=== PATIENT | female | born 1940 | race Caucasian/White ===

== ENCOUNTER → 2016-07-06 | Outpatient (CLI) | payer MEDICARE, BC ==
--- NOTE | 2016-07-07 08:17 | MM ---
Reason for exam: screening (asymptomatic). Last mammogram was performed 1 year and 2 months ago. History: Patient is postmenopausal. Family history of breast cancer in maternal aunt at age 50. Benign excisional biopsy of the left breast. Took hormonal contraceptives for 5 years. Physical Findings: A clinical breast exam by your physician is recommended on an annual basis and results should be correlated with mammographic findings. MG Screening Mammo w CAD Bilateral CC and MLO view(s) were taken. Prior study comparison: May 07, 2015, bilateral MG screening mammo w CAD. April 16, 2014, bilateral MG screening mammo w CAD. There are scattered fibroglandular densities. There is chronic nodularity bilaterally. No significant changes when compared with prior studies. ASSESSMENT: Benign, BI-RAD 2 RECOMMENDATION: Routine screening mammogram of both breasts in 1 year.
== END | disposition home or self-care (01) ==
LOC: RADMAMWWP 11:37
PROVIDERS: ATTEND Internal Medicine Geriatric Medicine
DX: Z12.31 Encounter for screening mammogram for malignant neoplasm of breast (principal)

== ENCOUNTER 2016-08-04 08:18 | Day surgery (SDC) | payer MEDICARE, BC ==
[2016-07-30 15:14] VITALS: BMI 30.9
[~2016-08-04 08:18] MED LIST: LACTATED RINGERS 1,000 ML IV SCH
[2016-08-04 09:02] VITALS: TEMP 97.9
[2016-08-04] MEDS ORDERED: LIDOCAINE 1% 20 ML VIAL (10MG/ML) FOR IV START INTRADERMA ONE (09:02)
[2016-08-04] MEDS ORDERED: LIDOCAINE 1% INJ 10MG/ML (20 ML MDV) ONE (09:03)
[2016-08-04] MEDS ORDERED: PROPOFOL 10 MG/ML 20 ML VIAL IV ONE (09:03)
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
--- NOTE | 2016-08-04 09:33 | P.PCN ---
Date of Procedure: 08/04/16 Procedure(s) Performed: PREOPERATIVE DIAGNOSIS: Anemia, GERD POSTOPERATIVE DIAGNOSIS: Duodenitis, mild gastritis, hiatal hernia, mild diverticulosis PROCEDURE: 1. EGD with biopsy 2. Colonoscopy ANESTHESIA: MAC SURGEON: Lonnie Quach M.D. SPECIMENS: Duodenum, antral ENDOSCOPIC PROCEDURE: The patient was on the endoscopy table in the left decubitus position. The Olympus gastroscope was inserted into the oropharynx and passed under direct visualization to the region of the third portion of the duodenum. From that point the scope was slowly withdrawn inspecting all surfaces carefully. There was mild duodenitis present. No evidence of recent or active bleeding. The pylorus was widely patent. The stomach was carefully inspected. There was minimal gastritis present. A biopsy of the antrum took place to rule out H. pylori. Retroflexion revealed a small to moderate sized hiatal hernia. The GE junction was present 2 cm above the diaphragmatic hiatus. There was no inflammatory changes within the hiatal hernia. The esophagus was then carefully examined. There were no neoplastic inflammatory or polypoid lesions throughout the visualized esophagus. The patient was kept on the endoscopy table in the left decubitus position. The Olympus colonoscope was inserted into the anus and passed under direct visualization to the base of the cecum. The appendiceal orifice was visualized. From that point the scope was slowly withdrawn inspecting all surfaces carefully. There were no neoplastic inflammatory or polypoid lesions throughout the cecum, ascending, transverse, descending, sigmoid and rectum. There was mild diverticulosis noted. Digital rectal examination was normal. The patient was taken to the recovery room in stable condition per anesthesia guidelines. RECOMMENDATIONS: Increase fiber. Consider hematology workup
[2016-08-04 09:41] VITALS: RESP 16
[2016-08-04 09:52] VITALS: BP 125/55; PULSE 69
== END 2016-08-04 10:18 | disposition home or self-care (01) ==
LOC: ORWHC2ENDO 08:18
PROVIDERS: ATTEND Surgery
DX: K21.9 Gastro-esophageal reflux disease without esophagitis (principal); K29.50 Unspecified chronic gastritis without bleeding; K29.80 Duodenitis without bleeding; K57.30 Diverticulosis of large intestine without perforation or abscess without bleeding; D64.9 Anemia, unspecified; G25.81 Restless legs syndrome; I10 Essential (primary) hypertension; K44.9 Diaphragmatic hernia without obstruction or gangrene; F32.9 Major depressive disorder, single episode, unspecified; Z87.891 Personal history of nicotine dependence; Z79.899 Other long term (current) drug therapy
CPT/HCPCS: 88305; 88342; 43239; J2001; J2704; G0121

== ENCOUNTER → 2016-11-03 | Day surgery (SDC) | payer MEDICARE, BC ==
[2016-10-29 10:13] VITALS: BMI 30.4
[~2016-11-03] MED LIST changes: -LACTATED RINGERS 1,000 ML IV SCH; +SIMETHICONE 40 MG/0.6 ML DROPS 2,000 MG/30 ML BOTTLE PO ONE
== END ==
LOC: ORWHC2ENDO 06:50
PROVIDERS: ATTEND Internal Medicine Gastroenterology
DX: K31.819 Angiodysplasia of stomach and duodenum without bleeding (principal); D50.9 Iron deficiency anemia, unspecified; K29.70 Gastritis, unspecified, without bleeding; K29.80 Duodenitis without bleeding; K57.30 Diverticulosis of large intestine without perforation or abscess without bleeding
CPT/HCPCS: 91110

== ENCOUNTER 2016-11-17 08:09 | Day surgery (SDC) | payer MEDICARE, BC ==
[2016-11-15 15:05] VITALS: BMI 31.3
[~2016-11-17 08:09] MED LIST changes: +LACTATED RINGERS 1,000 ML IV SCH; +LIDOCAINE 1% 20 ML VIAL (10MG/ML) FOR IV START INTRADERMA PRN; -SIMETHICONE 40 MG/0.6 ML DROPS 2,000 MG/30 ML BOTTLE PO ONE
[2016-11-17 08:48] VITALS: TEMP 97.7
[2016-11-17] MEDS ORDERED: PROPOFOL 10 MG/ML 20 ML VIAL IV ONE (09:15)
[2016-11-17] MEDS ORDERED: LIDOCAINE 1% INJ 10MG/ML (20 ML MDV) ONE (09:15)
--- NOTE | 2016-11-17 09:37 | P.PCN ---
Date of Procedure: 11/17/16 Preoperative Diagnosis: Postoperative Diagnosis: Procedure(s) Performed: BRIEF HISTORY: Patient is a 76-year-old, pleasant, white female, scheduled for a upper endoscopy/small bowel enteroscopy as a part of evaluation of iron deficiency anemia. She had an upper endoscopy as well as colonoscopy done by Dr. Henriquez in September 2016 which showed some gastritis and duodenitis and diverticulosis. She subsequently had a small bowel capsule endoscopy done because of persistent iron deficiency anemia. The capsule endoscopy revealed multiple scattered angiectasia noted in the duodenum as well as in the proximal jejunum somewhat with active oozing. She is hence scheduled for a small bowel enteroscopy today.. PROCEDURE PERFORMED: Esophagogastroduodenoscopy/small bowel enteroscopy with argon plasma coagulation. PREOPERATIVE DIAGNOSIS: Persistent iron deficiency anemia. IV sedation per anesthesia. PROCEDURE: After informed consent was obtained, the patient was brought into the endoscopy unit. IV sedation was administered by Anesthesia under continuous monitoring. Initially the Olympus GIF-140 video pediatric colonoscope was inserted into the mouth. Esophagus intubated without any difficulty. It was gradually advanced into the stomach and duodenum and into the proximal jejunal andcarefully examined. there are multiple scattered angiectasia noted in the proximal jejunum as well as the second third and fourth part of the duodenum couple of which with active oozing around which were coagulated using argon plasma coagulation and good hemostasis. The scope at this time was withdrawn to the stomach, adequately insufflated with air, and upon careful examination, mucosa of the antrum, body, cardia and the fundus appeared normal. The scope was then withdrawn into the esophagus. The GE junction was located at 39 cm from the incisors. small hiatal hernia noted. The esophagus appeared normal. There were no erosions or ulcerations seen and the patient tolerated the procedure well. IMPRESSION: 1. Multiple scattered angiectasia in the second third and fourth part of the duodenum as well as in the proximal jejunum, couple of which with active oozing status post argon plasma coagulation with good hemostasis . 2 Small hiatal hernia. RECOMMENDATIONS: The findings of this examination were discussed with the patient as well as a family. she was advised to continue with iron supplements and follow her hemoglobin and hematocrit closely. She'll be seen in the office in 3 months. Implants: Indications for Procedure: Operative Findings: Description of Procedure:
[2016-11-17 09:39] VITALS: RESP 16
[2016-11-17 10:14] VITALS: BP 135/55; PULSE 62
== END 2016-11-17 10:32 | disposition home or self-care (01) ==
LOC: ORWHC2ENDO 08:09
PROVIDERS: ATTEND Internal Medicine Gastroenterology
DX: I99.8 Other disorder of circulatory system (principal); D50.9 Iron deficiency anemia, unspecified; K44.9 Diaphragmatic hernia without obstruction or gangrene; I10 Essential (primary) hypertension; K21.9 Gastro-esophageal reflux disease without esophagitis; Z79.899 Other long term (current) drug therapy
CPT/HCPCS: 43270; J2001; J2704

== ENCOUNTER → 2017-05-02 | Outpatient (CLI) | payer MEDICARE, BC ==
--- NOTE | 2017-05-02 17:32 | CT ---
EXAMINATION TYPE: CT abdomen pelvis wo con DATE OF EXAM: 05/02/2017 COMPARISON: 10/09/2011 INDICATION: No Complaints at time of scan DLP: 644.4 mGycm, Automated exposure control for dose reduction was used. CONTRAST: 0 mL of Omnipaque 350. Study performed with Oral Contrast TECHNIQUE: Axial images were obtained from above the diaphragm to the pubic rami in the axial plane a t 5 mm thick sections. Reconstructed images are reviewed on the computer in the coronal plane. FINDINGS: Limited CT sections are obtained the lung bases. There is some mild increased opacities in the right lung base likely atelectasis. Coronary artery calcification is noted.. CT ABDOMEN: There is a mesenteric fat containing hernia within the mid abdomen. The mesentery is some mild increased density partial entrapment of the mesenteric fat to be considered. The opening is oralia roximately 1.8 cm in size. Series 3 image 35. Liver: Normal Spleen: Normal Pancreas: Normal Adrenal glands: The adrenal glands are normal. Gallbladder: Absent Kidneys: The right kidney is absent. Left kidney appears normal. Some residual renal tissue may be pr esent with a small calcification at the renal bed. No masses cysts or hydronephrosis are evident within the left kidney. Aorta: Vascular calcification is within the aorta. Inferior vena cava: Normal. CT PELVIS: Loops of bowel within the abdomen and pelvis are normal. There are loops of bowel which are incom pletely distended or lack oral contrast limiting their evaluation. Appendix: Not visualized. Urinary bladder: Normal. Genitourinary structures: Uterus is unremarkable. Adnexal regions are clear. Osseous structures: No suspicious lytic or sclerotic lesions. IMPRESSIONS: 1. Severely atrophic or absent right kidney. 2. Mesenteric fat containing anterior abdominal wall hernia with an opening 1.8 cm. This may have so me entrapment.
== END | disposition home or self-care (01) ==
LOC: RADCTMAIN 14:16
PROVIDERS: ATTEND Internal Medicine Hematology & Oncology
DX: K43.9 Ventral hernia without obstruction or gangrene (principal); D50.9 Iron deficiency anemia, unspecified
CPT/HCPCS: 36415; 74176; 82565; 84520

== ENCOUNTER → 2017-08-09 | Outpatient (CLI) | payer MEDICARE, BC ==
--- NOTE | 2017-08-11 07:33 | MM ---
Reason for exam: screening (asymptomatic). Last mammogram was performed 1 year and 1 month ago. History: Patient is postmenopausal. Family history of breast cancer in maternal aunt at age 50. Benign excisional biopsy of the left breast. Took hormonal contraceptives for 5 years. Physical Findings: A clinical breast exam by your physician is recommended on an annual basis and results should be correlated with mammographic findings. MG Screening Mammo w CAD Bilateral CC and MLO view(s) were taken. Prior study comparison: July 06, 2016, bilateral MG screening mammo w CAD. May 07, 2015, bilateral MG screening mammo w CAD. Finding: There are extensive typically benign round, diffuse calcifications in both breasts. No significant changes in finding since July 06, 2016 and May 07, 2015. ASSESSMENT: Benign, BI-RAD 2 RECOMMENDATION: Routine screening mammogram of both breasts in 1 year.
== END | disposition home or self-care (01) ==
LOC: RADMAMWWP 13:04
PROVIDERS: ATTEND Internal Medicine Geriatric Medicine
DX: Z12.31 Encounter for screening mammogram for malignant neoplasm of breast (principal)
CPT/HCPCS: 77067

== ENCOUNTER → 2018-05-09 | Outpatient (CLI) | payer MEDICARE, BC ==
[~2018-05-09] MED LIST changes: -LACTATED RINGERS 1,000 ML IV SCH; -LIDOCAINE 1% 20 ML VIAL (10MG/ML) FOR IV START INTRADERMA PRN; +SODIUM CHLORIDE 0.9% 500 ML 500 ML in EMPTY BAG 1 BAG IV PRN
[2018-05-09 14:21] VITALS: BP 146/67; PULSE 76; RESP 16; TEMP 98
== END | disposition home or self-care (01) ==
LOC: PROCWHC3 10:05
PROVIDERS: ATTEND Internal Medicine Hematology & Oncology
DX: D50.9 Iron deficiency anemia, unspecified (principal)
CPT/HCPCS: 86900; 86901; 86902; 86850; 86920; 36430; P9016

== ENCOUNTER 2018-05-31 08:07 | Day surgery (SDC) | payer MEDICARE, BC ==
[2018-05-26 12:00] VITALS: BMI 27.6
[~2018-05-31 08:07] MED LIST changes: +LACTATED RINGERS 1,000 ML IV SCH; -SODIUM CHLORIDE 0.9% 500 ML 500 ML in EMPTY BAG 1 BAG IV PRN
[2018-05-31 08:39] VITALS: RESP 16; TEMP 98.6
[2018-05-31] MEDS ORDERED: LIDOCAINE 1% 20 ML VIAL (10MG/ML) FOR IV START INTRADERMA ONE (08:39)
[2018-05-31] MEDS ORDERED: PROPOFOL 10 MG/ML 20 ML VIAL IV ONE (08:47)
--- NOTE | 2018-05-31 09:07 | P.PCN ---
Date of Procedure: 05/31/18 Procedure(s) Performed: BRIEF HISTORY: Patient is a 78-year-old, pleasant, white female, scheduled for an upper endoscopy as a part of evaluation of iron deficiency anemia. Her last upper endoscopy was in January 2017 and she was noted to have multiple duodenal angiectasia. Recently has been having recurrent anemia requiring blood transfusion almost once every 2 months. She is hence scheduled for repeat upper endoscopy revealed. PROCEDURE PERFORMED: Esophagogastroduodenoscopy with argon plasma coagulation and Endo Clip placement. PREOPERATIVE DIAGNOSIS: Iron deficiency anemia/history of duodenal angiectasia. IV sedation per anesthesia. PROCEDURE: After informed consent was obtained, the patient was brought into the endoscopy unit. IV sedation was administered by Anesthesia under continuous monitoring. Initially the Olympus GIF-140 video endoscope was inserted into the mouth. Esophagus intubated without any difficulty. It was gradually advanced into the stomach and duodenum and carefully examined. The bulb and the second part of the duodenum had multiple scattered angiectasia all of which were coagulated with argon plasma. One of the angiectasia was large and there was significant oozing identified and hence Endo Clip was placed to achieve good hemostasis The scope at this time was withdrawn to the stomach, adequately insufflated with air, and upon careful examination, mucosa of the antrum, body, cardia and the fundus appeared normal. The scope was then withdrawn into the esophagus. The GE junction was located at 39 cm from the incisors. The esophagus appeared normal. There were no erosions or ulcerations seen and the patient tolerated the procedure well. IMPRESSION: 1. Multiple scattered duodenal angiectasia in all 4 portions of the duodenum status post argon plasma coagulation and Endo Clip placement with good hemostasis. 2. Normal-appearing stomach and esophagus. RECOMMENDATIONS: The findings of this examination were discussed with the patient as well as her family. She was advised to continue with iron supplements and monitor CBC and periodic basis.
[2018-05-31 09:25] VITALS: BP 101/53; PULSE 64
== END 2018-05-31 10:08 | disposition home or self-care (01) ==
LOC: ORWHC2ENDO 08:07
PROVIDERS: ATTEND Internal Medicine Gastroenterology
DX: I99.8 Other disorder of circulatory system (principal); Z79.899 Other long term (current) drug therapy; I10 Essential (primary) hypertension; Z87.891 Personal history of nicotine dependence; N28.9 Disorder of kidney and ureter, unspecified; G25.81 Restless legs syndrome; F39 Unspecified mood [affective] disorder; H91.90 Unspecified hearing loss, unspecified ear; K21.9 Gastro-esophageal reflux disease without esophagitis
CPT/HCPCS: 43255; 43270; J2704

== ENCOUNTER 2018-07-14 16:04 | Emergency (ER) | payer MEDICARE, BC ==
[2018-07-14 16:14] VITALS: RESP 18
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
--- NOTE | 2018-07-14 17:45 | XR ---
PROCEDURE: XR foot complete RT - 3V DATE AND TIME: 07/14/2018 5:19 PM CLINICAL INDICATION: PHH; Pain TECHNIQUE: Department protocol COMPARISON: None FINDINGS: There is marked osteopenia and marked architectural distortion of the head of the fifth met atarsal and distal tibia, long-standing. There is no definite fracture or malalignment. The soft tissues are unremarkable. IMPRESSION: No definite acute radiographic process.
[2018-07-14 19:25] VITALS: BP 111/62; PULSE 72; TEMP 97.6
== END 2018-07-14 19:24 | disposition home or self-care (01) ==
LOC: EC 16:04
DX: M79.671 Pain in right foot (principal); M85.871 Other specified disorders of bone density and structure, right ankle and foot; K21.9 Gastro-esophageal reflux disease without esophagitis; I10 Essential (primary) hypertension; F32.9 Major depressive disorder, single episode, unspecified; Z79.899 Other long term (current) drug therapy; Z87.891 Personal history of nicotine dependence
CPT/HCPCS: 99283

== ENCOUNTER → 2018-09-21 | Outpatient (CLI) | payer MEDICARE, BC ==
--- NOTE | 2018-09-22 13:36 | MM ---
Reason for exam: screening (asymptomatic). Last mammogram was performed 1 year and 1 month ago. History: Patient is postmenopausal. Family history of breast cancer in maternal aunt at age 50. Benign excisional biopsy of the left breast. Took hormonal contraceptives for 5 years. Physical Findings: A clinical breast exam by your physician is recommended on an annual basis and results should be correlated with mammographic findings. MG Screening Mammo w CAD Bilateral CC and MLO view(s) were taken. XCCL view(s) were taken of the left breast. Prior study comparison: August 09, 2017, bilateral MG screening mammo w CAD. July 06, 2016, bilateral MG screening mammo w CAD. The breast tissue is heterogeneously dense. This may lower the sensitivity of mammography. Benign appearing bilateral calcifications. No suspicious abnormality. No significant changes when compared with prior studies. ASSESSMENT: Benign, BI-RAD 2 RECOMMENDATION: Routine screening mammogram of both breasts in 1 year.
== END | disposition home or self-care (01) ==
LOC: RADMAMWWP 13:18
PROVIDERS: ATTEND Internal Medicine Geriatric Medicine
DX: Z12.31 Encounter for screening mammogram for malignant neoplasm of breast (principal)
CPT/HCPCS: 77067

== ENCOUNTER → 2018-11-27 | Outpatient (CLI) | payer MEDICARE, BC ==
--- NOTE | 2018-11-27 14:45 | CT ---
EXAMINATION TYPE: CT lumbar spine wo con DATE OF EXAM: 11/27/2018 COMPARISON: Correlation CT abdomen pelvis 05/02/2017 HISTORY: 78-year-old female Low back and bilat leg pain TECHNIQUE: Contiguous axial scanning of the lumbar spine without IV contrast. Coronal and sagittal re constructions performed. CT DLP: 611 mGycm Automated exposure control for dose reduction was used. FINDINGS: Moderate atherosclerotic calcifications abdominal aorta and iliac arteries. The right kidney is severely atretic. Prominent contour lobulations involving the left kidney with configuration overall unchanged from suggesting multiple cortical defects such as from prior vascular or infectious insults. Vertebral body heights are preserved. Facet arthropathy with grade 1 anterolisthesis at L3-L4. Bulging discs at L2-S1 levels. The largest is at L4-L5 where there is prominent ventral indentation of the thecal sac possibly with mild narrowing of the spinal canal. No high-grade canal compromise identified by CT. On the left, there is mild to moderate neuroforaminal narrowing at L3-L4 and L4-L5 and mild at L2-L3. On the right, there is mild narrowing of the spinal canal at L4-L5 and minimal at L3-L4. IMPRESSION: 1. 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 2. MILD DEGENERATIVE DISC DISEASE WITH DISC BULGING FROM L2 THROUGH S1 LEVELS. THE LARGEST IS AT L4-L 5 AND MAY CONTRIBUTE TO MILD NARROWING OF THE SPINAL CANAL. NO GEORGE CANAL COMPROMISE BY CT. 3. MILD TO MODERATE NEUROFORAMINAL STENOSES OF THE LEFT PARTICULARLY AT L3-L4 AND L4-L5. MINIMAL TO M ILD ON THE RIGHT.
== END | disposition home or self-care (01) ==
LOC: RADCTMAIN 13:01
PROVIDERS: ATTEND Physical Medicine & Rehabilitation
DX: M48.061 Spinal stenosis, lumbar region without neurogenic claudication (principal); M51.16 Intervertebral disc disorders with radiculopathy, lumbar region; M43.16 Spondylolisthesis, lumbar region; M51.86 Other intervertebral disc disorders, lumbar region; M46.96 Unspecified inflammatory spondylopathy, lumbar region
CPT/HCPCS: 72131

== ENCOUNTER 2019-09-20 14:43 | Emergency (ER) | payer MEDICARE, BC ==
[2019-09-20 14:51] VITALS: RESP 18
[2019-09-20 15:32] LABS: HCT 28.3 % (34.0-46.0); HGB 8.7 gm/dL (11.4-16.0); Hypochromasia Marked; MCH 30.2 pg (25.0-35.0); MCHC 30.8 g/dL (31.0-37.0); Mean Platelet Volume 8.2; Platelet Count 361 k/uL (150-450); RBC 2.89 m/uL (3.80-5.40); RDW 15.3 % (11.5-15.5); WBC 15.1 k/uL (3.8-10.6)
[2019-09-20 15:41] LABS: Calcium 9.3 mg/dL (8.4-10.2); Potassium 5.1 mmol/L (3.5-5.1); Total Bilirubin 0.1 mg/dL (0.2-1.3); Total Protein 6.8 g/dL (6.3-8.2)
--- NOTE | 2019-09-20 15:54 | XR ---
KUB HISTORY: Shortness of breath and abdominal pain Frontal KUB submitted on 2 images Lung bases are clear. There is a spinal curvature present. No evident pleural effusion. There are vas cular calcifications present. There are overlying cardiac leads. Air-fluid levels are present without bowel distention. IMPRESSION: There may be underlying enteritis or ileus. Additional findings above. Follow-up as indic ated.
[2019-09-20 15:57] VITALS: TEMP 98
[2019-09-20] MEDS ORDERED: ONDANSETRON 4 MG/2 ML VIAL IVP STA (16:16)
[2019-09-20] MEDS ORDERED: SODIUM CHLORIDE 0.9% 500 ML 500 ML IV STA (16:16)
[2019-09-20 16:25] LABS: Band Neutrophils % 1 %; Lymphocytes # (M) 1.06 k/uL (1.0-4.8); Monocytes # (M) 0.91 k/uL (0-1.0); Neutrophils % (M) 86 %; Nucleated Red Blood Cells 0 /100 WBC (0-0); Total Cells Counted 100
[2019-09-20 16:26] LABS: Polychromasia Present
[2019-09-20 16:43] LABS: INR 0.9 (<1.2); Partial Thromboplastin Time 21.5 sec (22.0-30.0); Prothrombin Time 9.5 sec (9.0-12.0)
[2019-09-20] MEDS ORDERED: SODIUM CHLORIDE 0.9% 500 ML 500 ML IV ONE (16:47)
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
--- NOTE | 2019-09-20 17:21 | CT ---
EXAMINATION TYPE: CT abdomen pelvis wo con DATE OF EXAM: 09/20/2019 COMPARISON: 05/02/2017 INDICATION: constipation, bloating DLP: 672.2 mGycm, Automated exposure control for dose reduction was used. CONTRAST: 0 mL of Isovue 300. Study performed without Oral Contrast TECHNIQUE: Axial images were obtained from above the diaphragm to the pubic rami in the axial plane a t 5 mm thick sections. Reconstructed images are reviewed on the computer in the coronal plane. FINDINGS: Limited CT sections are obtained the lung bases. The lung bases are clear. Some mild coronary arter y calcification is noted. Small hiatal hernia is present. CT ABDOMEN: There is an anterior abdominal wall hernia containing mesenteric fat measuring 1.6 cm ope nerissa in the epigastric region. Liver: Normal Spleen: Normal Pancreas: Normal Adrenal glands: The adrenal glands are normal. Gallbladder: Normal Kidneys: There is a 0.3 cm nonobstructing renal stone in the superior anterior pole left kidney. A 0. 5 cm nonobstructing renal stones in the mid posterior left kidney a nonobstructing calcification is n ear the left renal hilum. No hydronephrosis is present. No cysts are present. Right Kidney is extremely atrophic. Aorta: Vascular calcification is within the aorta. Inferior vena cava: Normal. CT PELVIS: Loops of bowel within the abdomen and pelvis are normal. Study is without oral contrast limiting bowel evaluation. There are some scattered diverticuli evident. Appendix: Normal as visualized. Urinary bladder: Normal. Genitourinary structures: Uterus is unremarkable. Adnexal regions are clear. No free fluid is within the pelvis. Osseous structures: No suspicious lytic or sclerotic lesions. IMPRESSIONS: 1. Small hiatal hernia. 2. Multiple nonobstructing renal stones left kidney. 3. Atrophic right kidney. 4. Scattered diverticuli without acute diverticulitis. 5. Anterior abdominal wall mesenteric fat containing hernia.
[2019-09-20] MEDS ORDERED: ONDANSETRON 4 MG ODT STARTER PACK 2 TAB BTL PO STA (18:50)
[2019-09-20 19:02] VITALS: BP 164/72; PULSE 72
== END 2019-09-20 19:09 | disposition home or self-care (01) ==
LOC: EC 14:43
DX: K44.9 Diaphragmatic hernia without obstruction or gangrene (principal); D64.9 Anemia, unspecified; N20.0 Calculus of kidney; N26.1 Atrophy of kidney (terminal); K57.92 Diverticulitis of intestine, part unspecified, without perforation or abscess without bleeding; K21.9 Gastro-esophageal reflux disease without esophagitis; F32.9 Major depressive disorder, single episode, unspecified; I10 Essential (primary) hypertension; Z79.899 Other long term (current) drug therapy; Z87.891 Personal history of nicotine dependence; Z90.49 Acquired absence of other specified parts of digestive tract
CPT/HCPCS: 99284; 96374; 96361 ×3; 36415; 93005; 80053; 82150; 83605; 83690; 85025; 85610; 85730; 74018; 74176; J2405; S0119

== ENCOUNTER 2019-09-24 15:21 | Inpatient (IN) | payer MEDICARE, BC ==
[2019-09-24 16:13] LABS: Anisocytosis Slight; Hypochromasia Marked; MCH 30.6 pg (25.0-35.0); MCHC 29.9 g/dL (31.0-37.0); MCV 102.2 fL (80.0-100.0); Macrocytosis Moderate; Platelet Count 304 k/uL (150-450); Poikilocytosis Slight; RBC 1.74 m/uL (3.80-5.40); RDW 18.9 % (11.5-15.5); WBC 14.5 k/uL (3.8-10.6)
[2019-09-24 16:19] LABS: Albumin 3.3 g/dL (3.5-5.0); Calcium 8.8 mg/dL (8.4-10.2); Potassium 4.6 mmol/L (3.5-5.1); Total Bilirubin 0.1 mg/dL (0.2-1.3); Total Protein 5.9 g/dL (6.3-8.2)
[2019-09-24] MEDS ORDERED: ONDANSETRON 4 MG/2 ML VIAL IVP STA (16:20)
[2019-09-24] MEDS ORDERED: MORPHINE SULFATE 2 MG/ML SYRINGE IVP STA (16:20)
[2019-09-24 16:24] LABS: HGB 5.3 gm/dL (11.4-16.0)
[2019-09-24 16:25] LABS: HCT 17.8 % (34.0-46.0)
--- NOTE | 2019-09-24 16:36 | XR ---
EXAMINATION TYPE: XR chest 2V DATE OF EXAM: 09/24/2019 COMPARISON: 08/10/2010 HISTORY: 79 year-old female shortness of breath, chest pain with activity TECHNIQUE: AP and lateral views FINDINGS: Heart mildly enlarged. Aorta and pulmonary vasculature within normal limits. Some strandy atelectasis in the mid and lower lungs without susan consolidation or pleural effusion. Mild hyperinflation. IMPRESSION: 1. Cardiomegaly. 2. Possible underlying COPD. Hyperinflation may alternatively relate to depth of inspiration. Clinically correlate. 3. Some strandy atelectasis in the lower lungs. No definite acute process.
[2019-09-24 16:43] LABS: Band Neutrophils % 3 %; Basophils # (M) 0.44 k/uL (0-0.2); Neutrophils % (M) 83 %; Nucleated Red Blood Cells 0 /100 WBC (0-0); Total Cells Counted 100
[2019-09-24 16:44] LABS: Poikilocytosis (M) Present; Polychromasia Present
[2019-09-24] MEDS ORDERED: PANTOPRAZOLE 40 MG/10 ML VIAL IVP STA (16:47)
[2019-09-24 16:50] LABS: INR 0.9 (<1.2); Prothrombin Time 9.8 sec (9.0-12.0)
[2019-09-24 16:55] LABS: Partial Thromboplastin Time 19.1 sec (22.0-30.0)
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
[2019-09-24] MEDS ORDERED: NALOXONE 0.4 MG/ML 1 ML VIAL IV PRN (18:11)
[2019-09-24] MEDS ORDERED: ACETAMINOPHEN TAB 325 MG TAB PO PRN (19:59)
[2019-09-24] MEDS ORDERED: MORPHINE SULFATE 2 MG/ML SYRINGE IVP PRN (20:34)
[2019-09-24] MEDS ORDERED: ALPRAZolam 0.25 MG TAB PO PRN (22:06)
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
[2019-09-25 01:18] LABS: Anisocytosis Slight; HCT 21.8 % (34.0-46.0); Hypochromasia Moderate; MCH 29.5 pg (25.0-35.0); MCHC 29.9 g/dL (31.0-37.0); MCV 98.7 fL (80.0-100.0); Macrocytosis Slight; Mean Platelet Volume 8.2; Platelet Count 262 k/uL (150-450); Poikilocytosis Slight; RDW 18.4 % (11.5-15.5); WBC 10.8 k/uL (3.8-10.6)
[2019-09-25 01:37] LABS: HGB 6.5 gm/dL (11.4-16.0)
[2019-09-25 07:22] LABS: Anisocytosis Slight; HCT 28.2 % (34.0-46.0); Hypochromasia Slight; MCH 29.8 pg (25.0-35.0); MCHC 31.3 g/dL (31.0-37.0); MCV 95.2 fL (80.0-100.0); Macrocytosis Slight; Mean Platelet Volume 8.1; Platelet Count 265 k/uL (150-450); Poikilocytosis Moderate; RBC 2.97 m/uL (3.80-5.40); RDW 18.2 % (11.5-15.5); WBC 9.5 k/uL (3.8-10.6)
[2019-09-25 07:28] LABS: HGB 8.8 gm/dL (11.4-16.0)
[2019-09-25 08:44] LABS: Lymphocytes # (M) 0.57 k/uL (1.0-4.8); Monocytes # (M) 0.38 k/uL (0-1.0); Neutrophils # (M) 8.36 k/uL (1.3-7.7); Neutrophils % (M) 88 %; Nucleated Red Blood Cells 0 /100 WBC (0-0); Total Cells Counted 100
[2019-09-25] MEDS ORDERED: [UNRECOGNIZED DRUG - OTHER] PO SCH (09:00)
[2019-09-25] MEDS: HYDROCHLOROTHIAZIDE 25 MG TAB PO SCH (09:51)
[2019-09-25] MEDS: LOSARTAN 50 MG TAB PO SCH (09:51)
[2019-09-25] MEDS: amLODIPine 10 MG TAB PO SCH (09:51)
[2019-09-25] MEDS: VENLAFAXINE HCL ER 75 MG CAP PO SCH ×2 (09:51→19:50)
[2019-09-25] MEDS: ESCITALOPRAM 10 MG TAB PO SCH (09:51)
--- NOTE | 2019-09-25 13:14 | P.PN ---
Subjective Progress Note Date: 09/25/19 79-year-old female one of my office patient with known for the last 5 years with history of hypertension, chronic kidney disease, restless leg syndrome, chronic anemia with iron infusion on blood transfusion she seen oncology on regular basis and has CBC every month with iron infusion expected e very 6-8 weeks. Her last hemoglobin has been running above 10 g apparently she was in the emergency room 2 days ago with slight increase abdominal pain and discomfort was diagnosed with worsening have hernia with possible active bleeding ulcer refused to be hospitalized at the time ended up coming back to the emergency department today at [facility] for increase and worsening abdominal pain, associated with worsening shortness of breath and mild chest pain. Apparently patient has been having symptom for the last 4-5 days become much worse in the last 24 hours she was supposed to follow up in our office patient with symptoms become much worse ended up coming to the emergency department and was seen today found to have hemoglobin in the 5 level with much worsening compared to 2 days ago patient is more symptomatic with anemia apparently declined any black stools or tarry stools no bright red blood per rectum. Patient last colonoscopy and EGD has been last 18 months. 09/24: Patient is seen by GI and oncology. Patient only follows with Dr. Dubois in the office. Patient is denying any complaints today. She is ambulatory in her room without any lightheadedness or dizziness. Repeat hemoglobin is 8.8 following 2 units of packed RBCs. She is very anxious to be discharged home. She is agreeable to stay another day. Patient is afebrile, heart rate 80, blood pressure 155/71 and pulse ox 95% on room air. Patient is scheduled for EGD tomorrow. Objective - Vital Signs Vital signs: Vital Signs Temp 98.1 F 09/25/19 05:07 Pulse 61 09/25/19 05:07 Resp 16 09/25/19 05:07 BP 132/72 09/25/19 05:07 Pulse Ox 94 L 09/25/19 05:07 Intake & Output 09/24/19 09/25/19 09/25/19 18:59 06:59 18:59 Intake Total 1550 Output Total 350 Balance 1200 Weight 73.936 kg 74.8 kg Intake: Blood Product 1550 Rc As-1 Unit 310 [id number] Rc As-1 Unit 310 [id number] Output: Urine 350 Other: Voiding Method Toilet # Voids 1 - Exam Review of Systems CONSTITUTIONAL: Well-developed no acute respiratory distress. EYES: No icterus sclerae, no conjunctivitis. EARS, NOSE, MOUTH, THROAT, and FACE: No sore throat, lymphadenopathy, carotid bruits or deformity. RESPIRATORY: Mild shortness of breath no cough or wheezes. CARDIOVASCULAR: Mild PND orthopnea palpitations with recurrent angina. GASTROINTESTINAL: Positive abdominal pain with increase in heartburn and indigestion with slight change in bowel habit as well. GENITOURINARY: Negative for Hematuria or UTI, no kidney stones. INTEGUMENT/BREAST: Negative for any muscular injury with mild osteoarthritis.. HEMATOLOGIC/LYMPHATIC: Significant for iron deficiency with frequent iron infusion. MUSCULOSKELTAL: Negative for Myalgia or arthralgia. NEURLOGICAL: No LOC, Sz or syncope, blurred vision dizziness or abnormality.. BEHAVIORAL/PSYCH: Negative. ENDOCRINE: Negative. Physical examination General Appearance: Alert, cooperative, no distress, appears stated age. Patient ambulating in her room. Neck HEENT: Supple, no lymphadenopathy, no thyroid enlargement, no carotid bruits. Lungs: Clear to auscultation without crackles or wheezes no rhonchi, no deformity. Chest Wall: Chest wall normal expansion with deep inspiration no tenderness and no deformity was found on exam, no costochondral pain or discomfort. Heart: Regular rate and rhythm, S1, S2 normal, no murmur, rub or gallop. Back: Symmetric, no curvature, ROM normal, no CVA tenderness. Abdomen: Soft positive bowel sounds no tenderness no rebound or rigidity no masses no organomegaly Extremities: Extremities normal, atraumatic, no cyanosis or edema. Pulses: 2+ and symmetric. Skin: Skin color, texture, tugor normal, no rashes or lesions. Neurologic: Alert oriented x3 cranial nerves II through XII intact, no motor deficit, no abnormal balance or gait. - Labs CBC & Chem 7: 09/25/19 07:03 09/24/19 16:00 Labs: Abnormal Lab Results - Last 24 Hours (Table) 09/24/19 09/24/19 09/24/19 Range/Units 16:00 16:00 16:00 WBC 14.5 H (3.8-10.6) k/uL RBC 1.74 L (3.80-5.40) m/uL Hgb 5.3 L* D (11.4-16.0) gm/dL Hct 17.8 L* (34.0-46.0) % MCV 102.2 H (80.0-100.0) fL MCHC 29.9 L (31.0-37.0) g/dL RDW 18.9 H (11.5-15.5) % Neutrophils # (Manual) 12.40 H (1.3-7.7) k/uL Basophils # (Manual) 0.44 H (0-0.2) k/uL APTT 19.1 L (22.0-30.0) sec Chloride 112 H (98-107) mmol/L Carbon Dioxide 16 L (22-30) mmol/L BUN 62 H (7-17) mg/dL Creatinine 1.75 H (0.52-1.04) mg/dL Glucose 143 H (74-99) mg/dL Total Bilirubin 0.1 L (0.2-1.3) mg/dL Total Protein 5.9 L (6.3-8.2) g/dL Albumin 3.3 L (3.5-5.0) g/dL Stool Occult Blood (Negative) Crossmatch 09/24/19 09/24/19 09/25/19 Range/Units 16:48 16:50 00:33 WBC 10.8 H (3.8-10.6) k/uL RBC 2.20 L (3.80-5.40) m/uL Hgb 6.5 L* (11.4-16.0) gm/dL Hct 21.8 L (34.0-46.0) % MCV (80.0-100.0) fL MCHC 29.9 L (31.0-37.0) g/dL RDW 18.4 H (11.5-15.5) % Neutrophils # (Manual) (1.3-7.7) k/uL Basophils # (Manual) (0-0.2) k/uL APTT (22.0-30.0) sec Chloride (98-107) mmol/L Carbon Dioxide (22-30) mmol/L BUN (7-17) mg/dL Creatinine (0.52-1.04) mg/dL Glucose (74-99) mg/dL Total Bilirubin (0.2-1.3) mg/dL Total Protein (6.3-8.2) g/dL Albumin (3.5-5.0) g/dL Stool Occult Blood Positive H (Negative) Crossmatch See Detail 09/25/19 Range/Units 07:03 WBC (3.8-10.6) k/uL RBC 2.97 L (3.80-5.40) m/uL Hgb 8.8 L D (11.4-16.0) gm/dL Hct 28.2 L (34.0-46.0) % MCV (80.0-100.0) fL MCHC (31.0-37.0) g/dL RDW 18.2 H (11.5-15.5) % Neutrophils # (Manual) (1.3-7.7) k/uL Basophils # (Manual) (0-0.2) k/uL APTT (22.0-30.0) sec Chloride (98-107) mmol/L Carbon Dioxide (22-30) mmol/L BUN (7-17) mg/dL Creatinine (0.52-1.04) mg/dL Glucose (74-99) mg/dL Total Bilirubin (0.2-1.3) mg/dL Total Protein (6.3-8.2) g/dL Albumin (3.5-5.0) g/dL Stool Occult Blood (Negative) Crossmatch Assessment and Plan Plan: 1 acute blood loss anemia with most likely acute GI bleed. Patient is status post transfusion of 2 units packed RBCs. Hematology and GI consult appreciated. Patient scheduled for EGD tomorrow. 2 recurrent abdominal pain: Mostly upper in the epigastric and right upper quadrant area. No CT or wrap ultrasound was done today that compared CT was done on the 16 when she was here last time she found to have small have hernia with multiple nonobstructive kidney stone with atrophy of the right kidney with scattered diverticuli without diverticulitis. No need to repeat another CAT scan at this point. 3 worsening dyspnea and shortness of breath: Most likely brought by the severity of the anemia with hypoperfusion and volume loss continue to support and resuscitate with the blood and fluid at this point recheck for the dyspnea afterward. 4 acute kidney injury: With chronic kidney disease, continue hydration repeat BUN/creatinine next 24 hours. 5 hypertension: Continue patient on losartan 100 mg a day hydrochlorothiazide 25 become a day and amlodipine 10 mg daily. 6 recurrent depression: Has been on Effexor or ex RR 150 mg twice a day and Lexapro 10 mg a day. 7 restless leg syndrome: Continue Requip 1-2 mg daily at bedtime as needed. 8 chronic arthralgia mostly osteoarthritis has been on Tylenol products at this point not been able to be on any anti-inflammatory agent. 9 chronic pain syndrome: Has been on Tylenol 3 mostly for lower back pain continue Tylenol 3 as needed. 10 DVT prophylaxis: Patient will have knee-high TRINO hose no subcu heparin at this point. 11 GI prophylaxis: Continue patient on pantoprazole IV. CODE STATUS: Full code. Discharge plan: To be determined Impression and plan of care have been directed as dictated by the signing physi cian. Corina Phan nurse practitioner acting as scribe for signing physician.
[2019-09-25 14:34] LABS: LDH 1474 U/L (313-618)
[2019-09-25 14:36] LABS: Albumin 3.7 g/dL (3.5-5.0); Calcium 8.7 mg/dL (8.4-10.2); Potassium 4.4 mmol/L (3.5-5.1); Total Bilirubin 0.4 mg/dL (0.2-1.3); Total Protein 6.2 g/dL (6.3-8.2)
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
[2019-09-25] MEDS: Acetaminophen-Codeine 300-30mg TAB PO PRN (14:55)
[2019-09-25 18:24] LABS: Anisocytosis Slight; HGB 8.7 gm/dL (11.4-16.0); Hypochromasia Moderate; MCH 29.6 pg (25.0-35.0); MCHC 31.2 g/dL (31.0-37.0); MCV 94.8 fL (80.0-100.0); Macrocytosis Slight; Mean Platelet Volume 8.2; Platelet Count 297 k/uL (150-450); Poikilocytosis Moderate; RBC 2.95 m/uL (3.80-5.40); RDW 18.3 % (11.5-15.5); WBC 12.2 k/uL (3.8-10.6)
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
[2019-09-25] MEDS: PANTOPRAZOLE 40 MG/10 ML VIAL IVP SCH (19:50)
[2019-09-25 22:20] LABS: Reticulocyte % 8.52 % (0.10-1.80)
[2019-09-25 23:04] LABS: Ferritin 23.7 ng/mL (10.0-291.0)
[2019-09-25 23:06] LABS: % Iron Saturation 5.99 (12.00-45.00); Folate, Serum >24.0 ng/mL; Iron 22 ug/dL (50-170); Total Iron Binding Capacity 367 ug/dL (228-460)
[2019-09-26 06:15] LABS: Anisocytosis Slight; HCT 25.6 % (34.0-46.0); HGB 8.2 gm/dL (11.4-16.0); Hypochromasia Slight; MCHC 31.9 g/dL (31.0-37.0); MCV 94.1 fL (80.0-100.0); Macrocytosis Slight; Mean Platelet Volume 8.1; Platelet Count 231 k/uL (150-450); Poikilocytosis Moderate; RBC 2.73 m/uL (3.80-5.40); RDW 18.2 % (11.5-15.5); WBC 8.2 k/uL (3.8-10.6)
[2019-09-26 06:24] LABS: Albumin 3.1 g/dL (3.5-5.0); Calcium 8.2 mg/dL (8.4-10.2); Potassium 4.5 mmol/L (3.5-5.1); Total Bilirubin 0.3 mg/dL (0.2-1.3); Total Protein 5.6 g/dL (6.3-8.2)
[2019-09-26 06:35] LABS: Eosinophils # (M) 0.16 k/uL (0-0.7); Lymphocytes # (M) 0.74 k/uL (1.0-4.8); Monocytes # (M) 0.74 k/uL (0-1.0); Neutrophils # (M) 6.56 k/uL (1.3-7.7); Neutrophils % (M) 80 %; Nucleated Red Blood Cells 0 /100 WBC (0-0); Total Cells Counted 100
[2019-09-26] MEDS ORDERED: LIDOCAINE 1% INJ 10MG/ML (20 ML MDV) ONE (08:05)
[2019-09-26] MEDS ORDERED: PROPOFOL 10 MG/ML 20 ML VIAL IV ONE (08:05)
[2019-09-26] MEDS ORDERED: IV FLUID CONTINUATION 1,000 ML IV ONE (08:06)
--- NOTE | 2019-09-26 08:34 | P.PCN ---
Date of Procedure: 09/26/19 Description of Procedure: BRIEF HISTORY: 79-year-old female with a past medical history significant for hypertension, chronic kidney disease, restless leg syndrome, chronic anemia requiring iron infusions and infusion of vitamin B12 in the past who presented to the hospital due to complaints of abdominal pain and worsening shortness of breath. The patient reported shortness of breath worse with exertion prior to presentation. In general her hemoglobin has been running at approximately 10. She follows closely with the hematology service as an outpatient and is transfused IV iron with her last infusion and and vitamin B12 with her last infusion on 08/2019. She's had evaluation with multiple endoscopic procedures in the past. She had colonoscopy in 08/2016 significant for diverticulosis and has undergone upper endoscopy/small bowel enteroscopy is in the past with findings of small bowel angiectasia treated with argon plasma coagulation therapy. Her last upper endoscopy was in 05/2018 with findings of a duodenal angioectasia. Currently she is denying any further shortness of breath. Hemoglobin is currently 8.8 from 5.3 on presentation. PROCEDURE PERFORMED: Esophagogastroduodenoscopy with argon plasma coagulation therapy for treatment of bleeding and nonbleeding angioectasia. PREOPERATIVE DIAGNOSIS: Anemia of acute blood loss, symptomatic anemia, GI bleed. ESTIMATED BLOOD LOSS: Minimal. IV sedation per anesthesia. PROCEDURE: After informed consent was obtained, the patient was brought into the endoscopy unit. IV sedation was administered by Anesthesia under continuous monitoring. Initially the Olympus GIF-190 video endoscope was inserted into the mouth. Esophagus intubated without any difficulty. It was gradually advanced into the stomach and duodenum and carefully examined. The bulb and the second part of the duodenum were significant for multiple angioectasia in the second portion of the duodenum, one which was actively oozing blood. The angioectasia were treated with argon plasma coagulation therapy with hemostasis achieved, approximately 5 angioectasia were treated.. The scope at this time was withdrawn to the stomach, adequately insufflated with air, and upon careful examination, mucosa of the antrum, body, cardia and the fundus appeared normal. The scope was then withdrawn into the esophagus. The GE junction was located at 35 cm from the incisors with a 3 cm hiatal hernia noted . The esophagus appeared normal. There were no erosions or ulcerations seen and the patient tolerated the procedure well. IMPRESSION: 1. Multiple small bowel angioectasia treated with argon plasma coagulation therapy, one which was actively oozing blood and with hemostasis achieved . 2. Moderate sized hiatal hernia. RECOMMENDATIONS: The findings of this examination were discussed with the patient. Okay for full liquid diet. Continue to monitor hemoglobin and hematocrit and transfuse as needed. Hematology service following. Continue Protonix therapy.
[2019-09-26] MEDS: LOSARTAN 50 MG TAB PO SCH (09:48)
[2019-09-26] MEDS: PANTOPRAZOLE 40 MG/10 ML VIAL IVP SCH ×2 (09:48→20:13)
[2019-09-26] MEDS: LACTATED RINGERS 1,000 ML IV SCH ×2 (09:48→09:56)
[2019-09-26] MEDS: amLODIPine 10 MG TAB PO SCH (09:48)
[2019-09-26] MEDS: ESCITALOPRAM 10 MG TAB PO SCH (09:49)
[2019-09-26] MEDS: HYDROCHLOROTHIAZIDE 25 MG TAB PO SCH (09:49)
[2019-09-26] MEDS: VENLAFAXINE HCL ER 75 MG CAP PO SCH ×2 (09:50→20:14)
--- NOTE | 2019-09-26 12:54 | P.PN ---
Subjective Progress Note Date: 09/26/19 79-year-old female one of my office patient with known for the last 5 years with history of hypertension, chronic kidney disease, restless leg syndrome, chronic anemia with iron infusion on blood transfusion she seen oncology on regular basis and has CBC every month with iron infusion expected e very 6-8 weeks. Her last hemoglobin has been running above 10 g apparently she was in the emergency room 2 days ago with slight increase abdominal pain and discomfort was diagnosed with worsening have hernia with possible active bleeding ulcer refused to be hospitalized at the time ended up coming back to the emergency department today at [facility] for increase and worsening abdominal pain, associated with worsening shortness of breath and mild chest pain. Apparently patient has been having symptom for the last 4-5 days become much worse in the last 24 hours she was supposed to follow up in our office patient with symptoms become much worse ended up coming to the emergency department and was seen today found to have hemoglobin in the 5 level with much worsening compared to 2 days ago patient is more symptomatic with anemia apparently declined any black stools or tarry stools no bright red blood per rectum. Patient last colonoscopy and EGD has been last 18 months. 09/24: Patient is seen by GI and oncology. Patient only follows with Dr. Dubois in the office. Patient is denying any complaints today. She is ambulatory in her room without any lightheadedness or dizziness. Repeat hemoglobin is 8.8 following 2 units of packed RBCs. She is very anxious to be discharged home. She is agreeable to stay another day. Patient is afebrile, heart rate 80, blood pressure 155/71 and pulse ox 95% on room air. Patient is scheduled for EGD tomorrow. 09/25: Patient underwent EGD today with Dr. Beltre that revealed multiple small bowel angiectasia treated with argon plasma coagulation therapy, one which was actively oozing blood with hemostasis achieved. Moderate hiatal hernia. Hemo globin this morning is 8.2 and a repeat draw will be done this afternoon followed by one in the morning. Other lab work reveals BUN of 53 and creatinine 1.91, sodium 142, potassium 4.5, chloride 117, CO2 18. Iron 22, TIBC 367, iron saturation 5.99, LDH 1474, vitamin B12 524, folate greater than 24. Patient has been started on a full liquid diet. Anticipate possible discharge tomorrow. Objective - Vital Signs Vital signs: Vital Signs Temp 97.9 F 09/26/19 04:19 Pulse 65 09/26/19 04:19 Resp 16 09/26/19 04:19 BP 122/87 09/26/19 04:19 Pulse Ox 95 09/26/19 04:19 Intake & Output 09/25/19 09/26/19 09/26/19 18:59 06:59 18:59 Intake Total 720 225 Output Total 250 Balance 720 -25 Weight 74.5 kg Intake: Oral 720 225 Output: Urine 250 Other: Voiding Method Toilet Toilet # Voids 2 - Exam Review of Systems CONSTITUTIONAL: Well-developed no acute respiratory distress. Denies fever, de nies chills EYES: No icterus sclerae, no conjunctivitis. EARS, NOSE, MOUTH, THROAT, and FACE: No sore throat, lymphadenopathy, carotid bruits or deformity. RESPIRATORY: Mild shortness of breath no cough or wheezes. CARDIOVASCULAR: Mild PND orthopnea palpitations with recurrent angina. GASTROINTESTINAL: Positive abdominal pain with increase in heartburn and indigestion with slight change in bowel habit as well. GENITOURINARY: Negative for Hematuria or UTI, no kidney stones. INTEGUMENT/BREAST: Negative for any muscular injury with mild osteoarthritis.. HEMATOLOGIC/LYMPHATIC: Significant for iron deficiency with frequent iron infusion. MUSCULOSKELTAL: Negative for Myalgia or arthralgia. NEURLOGICAL: No LOC, Sz or syncope, blurred vision dizziness or abnormality.. BEHAVIORAL/PSYCH: Negative. ENDOCRINE: Negative. Physical examination General Appearance: Alert, cooperative, no distress, appears stated age. Patient ambulating in her room. Neck HEENT: Supple, no lymphadenopathy, no thyroid enlargement, no carotid bruits. Lungs: Clear to auscultation without crackles or wheezes no rhonchi, no deformity. Chest Wall: Chest wall normal expansion with deep inspiration no tenderness and no deformity was found on exam, no costochondral pain. Heart: Regular rate and rhythm, S1, S2 normal, no murmur, rub or gallop. Back: Symmetric, no curvature, ROM normal, no CVA tenderness. Abdomen: Soft positive bowel sounds no tenderness no rebound or rigidity no masses no organomegaly Extremities: Extremities normal, atraumatic, no cyanosis or edema. Pulses: 2+ and symmetric. Skin: Skin color, texture, tugor normal, no rashes or lesions. Neurologic: Alert oriented x3 cranial nerves II through XII intact, no motor deficit, no abnormal balance or gait. - Labs CBC & Chem 7: 09/26/19 05:33 09/26/19 05:33 Labs: Abnormal Lab Results - Last 24 Hours (Table) 09/25/19 09/25/19 09/25/19 Range/Units 07:03 07:03 07:03 WBC (3.8-10.6) k/uL RBC (3.80-5.40) m/uL Hgb (11.4-16.0) gm/dL Hct (34.0-46.0) % RDW (11.5-15.5) % Neutrophils # (Manual) 8.36 H (1.3-7.7) k/uL Lymphocytes # (Manual) 0.57 L (1.0-4.8) k/uL Retic Count (0.10-1.80) % Chloride 110 H (98-107) mmol/L Carbon Dioxide 21 L (22-30) mmol/L BUN 56 H (7-17) mg/dL Creatinine 1.91 H (0.52-1.04) mg/dL Glucose 123 H (74-99) mg/dL Calcium (8.4-10.2) mg/dL Iron 22 L (50-170) ug/dL % Saturation 5.99 L (12.00-45.00) Lactate Dehydrogenase 1474 H (313-618) U/L Total Protein 6.2 L (6.3-8.2) g/dL Albumin (3.5-5.0) g/dL 09/25/19 09/25/19 09/26/19 Range/Units 18:04 18:04 05:33 WBC 12.2 H (3.8-10.6) k/uL RBC 2.95 L 2.73 L (3.80-5.40) m/uL Hgb 8.7 L 8.2 L (11.4-16.0) gm/dL Hct 28.0 L 25.6 L (34.0-46.0) % RDW 18.3 H 18.2 H (11.5-15.5) % Neutrophils # (Manual) (1.3-7.7) k/uL Lymphocytes # (Manual) 0.74 L (1.0-4.8) k/uL Retic Count 8.52 H (0.10-1.80) % Chloride (98-107) mmol/L Carbon Dioxide (22-30) mmol/L BUN (7-17) mg/dL Creatinine (0.52-1.04) mg/dL Glucose (74-99) mg/dL Calcium (8.4-10.2) mg/dL Iron (50-170) ug/dL % Saturation (12.00-45.00) Lactate Dehydrogenase (313-618) U/L Total Protein (6.3-8.2) g/dL Albumin (3.5-5.0) g/dL 09/26/19 Range/Units 05:33 WBC (3.8-10.6) k/uL RBC (3.80-5.40) m/uL Hgb (11.4-16.0) gm/dL Hct (34.0-46.0) % RDW (11.5-15.5) % Neutrophils # (Manual) (1.3-7.7) k/uL Lymphocytes # (Manual) (1.0-4.8) k/uL Retic Count (0.10-1.80) % Chloride 117 H (98-107) mmol/L Carbon Dioxide 18 L (22-30) mmol/L BUN 53 H (7-17) mg/dL Creatinine 1.91 H (0.52-1.04) mg/dL Glucose 105 H (74-99) mg/dL Calcium 8.2 L (8.4-10.2) mg/dL Iron (50-170) ug/dL % Saturation (12.00-45.00) Lactate Dehydrogenase (313-618) U/L Total Protein 5.6 L (6.3-8.2) g/dL Albumin 3.1 L (3.5-5.0) g/dL Assessment and Plan Plan: 1 acute blood loss anemia secondary to small bowel angiectasia status post argon plasma coagulation therapy. Patient is status post transfusion of 2 units packed RBCs. Patient started on a clear liquid diet. Continue Protonix IV twice daily. 2 acute GI bleed status post 2 units of packed RBCs. 3 worsening dyspnea and shortness of breath: Most likely brought by the severity of the anemia with hypoperfusion and volume loss continue to support and resuscitate with the blood and fluid at this point recheck for the dyspnea afterward. 4 acute kidney injury: With chronic kidney disease, continue hydration repeat BUN/creatinine next 24 hours. 5 hypertension: Continue patient on losartan 100 mg a day hydrochlorothiazide 25 become a day and amlodipine 10 mg daily. 6 recurrent depression: Has been on Effexor or ex RR 150 mg twice a day and Lexapro 10 mg a day. 7 restless leg syndrome: Continue Requip 1-2 mg daily at bedtime as needed. 8 chronic arthralgia mostly osteoarthritis has been on Tylenol products at this point not been able to be on any anti-inflammatory agent. 9 chronic pain syndrome: Has been on Tylenol 3 mostly for lower back pain continue Tylenol 3 as needed. 10 DVT prophylaxis: Patient will have knee-high TRINO hose no subcu heparin at this point. 11 GI prophylaxis: Continue patient on pantoprazole IV. CODE STATUS: Full code. Discharge plan: home on Impression and plan of care have been directed as dictated by the signing physic ian. Corina Phan nurse practitioner acting as scribe for signing physician.
--- NOTE | 2019-09-26 14:34 | P.PN ---
Subjective Progress Note Date: 09/26/19 Principal diagnosis: GI blood loss anemia Endoscopy today, Iron studies reviewed. Objective - Vital Signs Vital signs: Vital Signs Temp 97.8 F 09/26/19 11:36 Pulse 73 09/26/19 11:36 Resp 18 09/26/19 11:36 BP 157/61 09/26/19 11:36 Pulse Ox 93 L 09/26/19 11:36 Intake & Output 09/25/19 09/26/19 09/26/19 18:59 06:59 18:59 Intake Total 356 772 7732 Output Total 250 300 Balance 720 -25 720 Weight 74.5 kg Intake: IV 300 Intake, IV Titration 240 Amount Lactated Ringers 1,000 ml 240 @ 20 mls/hr IV .Q24H [facility] Rx#:[id number] Oral 720 225 480 Output: Urine 250 300 Other: Voiding Method Toilet Toilet Toilet # Voids 2 1 - Exam GEn: ALert and Oriented, NAD HEad: NT, AT Neck: Supple, Trachea Midline Lungs: CTA Bilateral Heart: Tachy ABdomen: Mild Guarding, Non-distended Ext: No edema Mood: Calm - Labs CBC & Chem 7: 09/26/19 15:06 09/26/19 05:33 Labs: Abnormal Lab Results - Last 24 Hours (Table) 09/25/19 09/25/19 09/25/19 Range/Units 07:03 07:03 18:04 WBC 12.2 H (3.8-10.6) k/uL RBC 2.95 L (3.80-5.40) m/uL Hgb 8.7 L (11.4-16.0) gm/dL Hct 28.0 L (34.0-46.0) % RDW 18.3 H (11.5-15.5) % Lymphocytes # (Manual) (1.0-4.8) k/uL Retic Count (0.10-1.80) % Chloride 110 H (98-107) mmol/L Carbon Dioxide 21 L (22-30) mmol/L BUN 56 H (7-17) mg/dL Creatinine 1.91 H (0.52-1.04) mg/dL Glucose 123 H (74-99) mg/dL Calcium (8.4-10.2) mg/dL Iron 22 L (50-170) ug/dL % Saturation 5.99 L (12.00-45.00) Lactate Dehydrogenase 1474 H (313-618) U/L Total Protein 6.2 L (6.3-8.2) g/dL Albumin (3.5-5.0) g/dL 09/25/19 09/26/19 09/26/19 Range/Units 18:04 05:33 05:33 WBC (3.8-10.6) k/uL RBC 2.73 L (3.80-5.40) m/uL Hgb 8.2 L (11.4-16.0) gm/dL Hct 25.6 L (34.0-46.0) % RDW 18.2 H (11.5-15.5) % Lymphocytes # (Manual) 0.74 L (1.0-4.8) k/uL Retic Count 8.52 H (0.10-1.80) % Chloride 117 H (98-107) mmol/L Carbon Dioxide 18 L (22-30) mmol/L BUN 53 H (7-17) mg/dL Creatinine 1.91 H (0.52-1.04) mg/dL Glucose 105 H (74-99) mg/dL Calcium 8.2 L (8.4-10.2) mg/dL Iron (50-170) ug/dL % Saturation (12.00-45.00) Lactate Dehydrogenase (313-618) U/L Total Protein 5.6 L (6.3-8.2) g/dL Albumin 3.1 L (3.5-5.0) g/dL Assessment and Plan Plan: Assessment and Recommendations: 1. Normocytic Anemia: Acute on Chronic: - On admission hemoglobin 5.7 and status post PRBC - Iron deficiency component secondary to likely GI blood loss from AVM - History of B12 and Iron deiciency, last IV iron in July 2019 - Transfuse PRBC hemoglobin less than 7 - GI is following EGD Scope 09/25 - Re-submit anemia panel, although iron studies may lack accuracy with recent transfusion - Daily CBC 2. Abdominal and Chest Pain: - Likely secondary to etiology of blood loss and anemia - Symptom control 3. 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 Dictated as a scribe.
[2019-09-26 15:36] LABS: Anisocytosis Slight; HCT 26.8 % (34.0-46.0); HGB 8.2 gm/dL (11.4-16.0); Hypochromasia Marked; MCH 30.2 pg (25.0-35.0); MCHC 30.7 g/dL (31.0-37.0); MCV 98.4 fL (80.0-100.0); Macrocytosis Slight; Mean Platelet Volume 8.6; Platelet Count 299 k/uL (150-450); Poikilocytosis Slight; RBC 2.72 m/uL (3.80-5.40); RDW 17.8 % (11.5-15.5); WBC 9.1 k/uL (3.8-10.6)
[2019-09-26] MEDS: SODIUM FERRIC GLUCONAT-SUCROSE 125 MG in SODIUM CHLORIDE 0.9% 100 ML IVPB SCH (16:10)
[2019-09-26] MEDS: ACETAMINOPHEN TAB 500 MG TAB PO PRN (23:28)
[2019-09-27] MEDS: LOSARTAN 50 MG TAB PO SCH (08:01)
[2019-09-27] MEDS: amLODIPine 10 MG TAB PO SCH (08:01)
[2019-09-27] MEDS: VENLAFAXINE HCL ER 75 MG CAP PO SCH ×2 (08:01→20:09)
[2019-09-27] MEDS: HYDROCHLOROTHIAZIDE 25 MG TAB PO SCH (08:01)
[2019-09-27] MEDS: PANTOPRAZOLE 40 MG/10 ML VIAL IVP SCH ×2 (08:02→20:10)
[2019-09-27 08:04] LABS: Anisocytosis Slight; HCT 25.2 % (34.0-46.0); HGB 7.7 gm/dL (11.4-16.0); Hypochromasia Moderate; MCH 29.1 pg (25.0-35.0); MCHC 30.6 g/dL (31.0-37.0); MCV 95.1 fL (80.0-100.0); Macrocytosis Slight; Mean Platelet Volume 8.6; Platelet Count 307 k/uL (150-450); Poikilocytosis Moderate; RBC 2.65 m/uL (3.80-5.40); RDW 17.7 % (11.5-15.5); WBC 7.5 k/uL (3.8-10.6)
[2019-09-27 08:14] LABS: Calcium 8.4 mg/dL (8.4-10.2)
[2019-09-27] MEDS: ESCITALOPRAM 10 MG TAB PO SCH (09:44)
[2019-09-27] MEDS: SODIUM FERRIC GLUCONAT-SUCROSE 125 MG in SODIUM CHLORIDE 0.9% 100 ML IVPB SCH (11:09)
--- NOTE | 2019-09-27 13:56 | P.PN ---
Subjective Progress Note Date: 09/27/19 79-year-old female one of my office patient with known for the last 5 years with history of hypertension, chronic kidney disease, restless leg syndrome, chronic anemia with iron infusion on blood transfusion she seen oncology on regular basis and has CBC every month with iron infusion expected e very 6-8 weeks. Her last hemoglobin has been running above 10 g apparently she was in the emergency room 2 days ago with slight increase abdominal pain and discomfort was diagnosed with worsening have hernia with possible active bleeding ulcer refused to be hospitalized at the time ended up coming back to the emergency department today at [facility] for increase and worsening abdominal pain, associated with worsening shortness of breath and mild chest pain. Apparently patient has been having symptom for the last 4-5 days become much worse in the last 24 hours she was supposed to follow up in our office patient with symptoms become much worse ended up coming to the emergency department and was seen today found to have hemoglobin in the 5 level with much worsening compared to 2 days ago patient is more symptomatic with anemia apparently declined any black stools or tarry stools no bright red blood per rectum. Patient last colonoscopy and EGD has been last 18 months. 09/24: Patient is seen by GI and oncology. Patient only follows with Dr. Dubois in the office. Patient is denying any complaints today. She is ambulatory in her room without any lightheadedness or dizziness. Repeat hemoglobin is 8.8 following 2 units of packed RBCs. She is very anxious to be discharged home. She is agreeable to stay another day. Patient is afebrile, heart rate 80, blood pressure 155/71 and pulse ox 95% on room air. Patient is scheduled for EGD tomorrow. 09/25: Patient underwent EGD today with Dr. Beltre that revealed multiple small bowel angiectasia treated with argon plasma coagulation therapy, one which was actively oozing blood with hemostasis achieved. Moderate hiatal hernia. Hemo globin this morning is 8.2 and a repeat draw will be done this afternoon followed by one in the morning. Other lab work reveals BUN of 53 and creatinine 1.91, sodium 142, potassium 4.5, chloride 117, CO2 18. Iron 22, TIBC 367, iron saturation 5.99, LDH 1474, vitamin B12 524, folate greater than 24. Patient has been started on a full liquid diet. Anticipate possible discharge tomorrow. 09/26: Patient is followed by oncology with plan for iron infusion 3 doses and follow-up in the office as needed. Patient states that she is eating okay. She has not had a bowel movement. Repeat hemoglobin this morning is at 7.7 and will be rechecked this afternoon and in the morning. If no signs of bleeding, most likely, patient will be discharged home tomorrow. Repeat blood work also revealed BUN of 38 creatinine 1.72. The patient is tolerating clear liquid diet which has been low fiber diet. Objective - Vital Signs Vital signs: Vital Signs Temp 97.8 F 09/27/19 08:59 Pulse 67 09/27/19 12:00 Resp 18 09/27/19 12:00 BP 125/46 09/27/19 08:59 Pulse Ox 96 09/27/19 08:59 Intake & Output 09/26/19 09/27/19 09/27/19 18:59 06:59 18:59 Intake Total 1020 240 Output Total 300 300 Balance 720 240 -300 Weight 71.1 kg Intake: IV 300 Intake, IV Titration 240 Amount Lactated Ringers 1,000 ml 240 @ 20 mls/hr IV .Q24H [facility] Rx#:[id number] Oral 480 240 Output: Urine 300 300 Other: Voiding Method Toilet Toilet Toilet # Voids 1 1 3 - Labs CBC & Chem 7: 09/27/19 07:44 09/27/19 07:44 Labs: Abnormal Lab Results - Last 24 Hours (Table) 09/26/19 09/27/19 09/27/19 Range/Units 15:06 07:44 07:44 RBC 2.72 L 2.65 L (3.80-5.40) m/uL Hgb 8.2 L 7.7 L (11.4-16.0) gm/dL Hct 26.8 L 25.2 L (34.0-46.0) % MCHC 30.7 L 30.6 L (31.0-37.0) g/dL RDW 17.8 H 17.7 H (11.5-15.5) % Chloride 113 H (98-107) mmol/L Carbon Dioxide 21 L (22-30) mmol/L BUN 38 H (7-17) mg/dL Creatinine 1.72 H (0.52-1.04) mg/dL Assessment and Plan Plan: 1. Acute blood loss anemia secondary to AVM status post transfusion of 2 units packed RBCs. Continue Protonix IV twice daily. Repeat hemoglobin this afternoon and in the morning. 2. Acute GI bleed status post EGD and are gone plasma coagulation therapy. Monitor hemoglobin closely. 3. Worsening dyspnea secondary to anemia. Continue monitoring hemoglobin closely. 4. Chronic B12 deficiency anemia. 5. Mild acute kidney injury with chronic kidney disease stage III. Monitor electrolytes and renal function. 6. Hypertension. Continue hydrochlorothiazide 25 mg daily, losartan 100 mg daily, amlodipine 10 mg daily. 7. Recurrent depression: Has been on Effexor or ex RR 150 mg twice a day and Lexapro 10 mg a day. 8. Restless leg syndrome: Continue Requip 1-2 mg daily at bedtime as needed. 9. Chronic arthralgia mostly osteoarthritis has been on Tylenol products at this point not been able to be on any anti-inflammatory agent. 10. Chronic pain syndrome: Has been on Tylenol 3 mostly for lower back pain continue Tylenol 3 as needed. 11. DVT prophylaxis: Patient will have knee-high TRINO hose no subcu heparin at this point. 12. GI prophylaxis: Continue patient on pantoprazole IV. CODE STATUS: Full code. Discharge plan: home on Tuesday Impression and plan of care have been directed as dictated by the signing physician. Corina Phan nurse practitioner acting as scribe for signing ashley gutierrez.
[2019-09-27] MEDS: LACTATED RINGERS 1,000 ML IV SCH (16:17)
[2019-09-27 18:56] LABS: Anisocytosis Slight; HCT 26.6 % (34.0-46.0); HGB 8.1 gm/dL (11.4-16.0); Hypochromasia Marked; MCH 29.7 pg (25.0-35.0); MCHC 30.5 g/dL (31.0-37.0); MCV 97.1 fL (80.0-100.0); Macrocytosis Slight; Mean Platelet Volume 8.5; Platelet Count 346 k/uL (150-450); Poikilocytosis Slight; RBC 2.74 m/uL (3.80-5.40); RDW 17.4 % (11.5-15.5); WBC 8.8 k/uL (3.8-10.6)
--- NOTE | 2019-09-27 19:43 | P.PN ---
Subjective Progress Note Date: 09/27/19 Principal diagnosis: Anemia of acute blood loss, GI bleed, bleeding angiectasia Patient is seen lying in bed tolerating her diet. No abdominal pain. No nausea or vomiting. No signs or symptoms of GI bleed. Objective - Vital Signs Vital signs: Vital Signs Temp 97.8 F 09/27/19 08:59 Pulse 67 09/27/19 08:59 Resp 18 09/27/19 08:59 BP 125/46 09/27/19 08:59 Pulse Ox 96 09/27/19 08:59 Intake & Output 09/26/19 09/27/19 09/27/19 18:59 06:59 18:59 Intake Total 1020 240 Output Total 300 Balance 720 240 Weight 71.1 kg Intake: IV 300 Intake, IV Titration 240 Amount Lactated Ringers 1,000 ml 240 @ 20 mls/hr IV .Q24H [facility] Rx#:[id number] Oral 480 240 Output: Urine 300 Other: Voiding Method Toilet Toilet Toilet # Voids 1 1 - Exam On physical examination, patient appears comfortable in no apparent distress. HEAD: Normocephalic, atraumatic. EYES: No scleral icterus. No conjunctival injection. MOUTH: No lesions, tongue midline. NECK: Trachea midline, no gross abnormalities. ABDOMEN: Soft, obese. Bowel sounds are positive. No organomegaly. No guarding o r rigidity. EXTREMITIES: No pedal edema. SKIN: No rashes, no jaundice. NEUROLOGIC: Alert and oriented x3. No focal deficits. - Labs CBC & Chem 7: 09/27/19 17:17 09/27/19 07:44 Labs: Abnormal Lab Results - Last 24 Hours (Table) 09/26/19 09/27/19 09/27/19 Range/Units 15:06 07:44 07:44 RBC 2.72 L 2.65 L (3.80-5.40) m/uL Hgb 8.2 L 7.7 L (11.4-16.0) gm/dL Hct 26.8 L 25.2 L (34.0-46.0) % MCHC 30.7 L 30.6 L (31.0-37.0) g/dL RDW 17.8 H 17.7 H (11.5-15.5) % Chloride 113 H (98-107) mmol/L Carbon Dioxide 21 L (22-30) mmol/L BUN 38 H (7-17) mg/dL Creatinine 1.72 H (0.52-1.04) mg/dL Assessment and Plan (1) GI bleed Narrative/Plan: 79-year-old female with multiple medical comorbidities including prior GI bleed from small bowel angiectasia who presented to the hospital with shortness of breath and abdominal pain. Patient found to be anemic with hemoglobin of 5.3. She denies any signs or symptoms of GI bleeding at this time however given history of bleeding small bowel angiodysplasia suspicion is for possible small bowel bleed. Hemoglobin however has been stable after transfusion. Last EGD was in 05/2018 with findings of duodenal angiectasia treated with argon plasma coagulation therapy. Patient has a known history of iron deficiency anemia and is given supplementation with iron infusions and vitamin B12 in the outpatient setting, she follows up with hematology. EGD performed yesterday was significant for a moderate sized hiatal hernia with multiple angiectasia noted one which was actively bleeding, they were treated with argon plasma coagulation therapy. Current Visit: Yes Status: Acute Code(s): K92.2 - GASTROINTESTINAL HEMORRHAGE, UNSPECIFIED SNOMED Code(s): 74110087 (2) Iron deficiency anemia Current Visit: Yes Status: Acute Code(s): D50.9 - IRON DEFICIENCY ANEMIA, UNSPECIFIED SNOMED Code(s): 52192443 Plan: Supportive care Continue to monitor hemoglobin and hematocrit and transfuse as needed Okay for soft diet Continue to monitor BMP, CBC Continue monitor for signs or symptoms of GI bleeding Thank you for allowing us to participate in the care of the patient
[2019-09-27] MEDS: ACETAMINOPHEN TAB 500 MG TAB PO PRN (20:08)
--- NOTE | 2019-09-27 20:37 | P.PN ---
Subjective Progress Note Date: 09/27/19 Principal diagnosis: GI blood loss anemia Hemoglobin and renal function improving. Awaiting full work-up continue Parental iron Objective - Vital Signs Vital signs: Vital Signs Temp 97.8 F 09/27/19 19:30 Pulse 67 09/27/19 19:30 Resp 20 09/27/19 19:30 BP 149/56 09/27/19 19:30 Pulse Ox 94 L 09/27/19 19:30 Intake & Output 09/27/19 09/27/19 09/28/19 06:59 18:59 06:59 Intake Total 240 300 120 Output Total 600 Balance 240 -300 120 Weight 71.1 kg Intake: Oral 240 300 120 Output: Urine 600 Other: Voiding Method Toilet Toilet Toilet # Voids 1 3 1 - Exam GEn: ALert and Oriented, NAD HEad: NT, AT Neck: Supple, Trachea Midline Lungs: CTA Bilateral Heart: Tachy ABdomen: Mild Guarding, Non-distended Ext: No edema Mood: Calm - Labs CBC & Chem 7: 09/27/19 17:17 09/27/19 07:44 Labs: Abnormal Lab Results - Last 24 Hours (Table) 09/27/19 09/27/19 09/27/19 Range/Units 07:44 07:44 17:17 RBC 2.65 L 2.74 L (3.80-5.40) m/uL Hgb 7.7 L 8.1 L (11.4-16.0) gm/dL Hct 25.2 L 26.6 L (34.0-46.0) % MCHC 30.6 L 30.5 L (31.0-37.0) g/dL RDW 17.7 H 17.4 H (11.5-15.5) % Chloride 113 H (98-107) mmol/L Carbon Dioxide 21 L (22-30) mmol/L BUN 38 H (7-17) mg/dL Creatinine 1.72 H (0.52-1.04) mg/dL Assessment and Plan Plan: Assessment and Recommendations: 1. Normocytic Anemia: Acute on Chronic: - On admission hemoglobin 5.7 and status post PRBC - Iron deficiency component secondary to likely GI blood loss from AVM - History of B12 and Iron deiciency, last IV iron in July 2019 - Transfuse PRBC hemoglobin less than 7 - GI is following EGD Scope 09/25 - Daily CBC - Hemoglobin greater than 8 today, continue IV iron 2. Abdominal and Chest Pain: - Likely secondary to etiology of blood loss and anemia - Symptom control 3. Acute on Chronic renal insufficiency - Unknown stage taken per medical record - Check Erythropoetin with chronic anemia Plan: - Parental Iron day 2/3 day, then follow-up in office to continue PRN secondary to GI AVMs - If discharged tomorrow ok to follow up in office this week to receive Bowen casillas and then will closely monitor cbc outpatient for Iron infusions
[2019-09-28] MEDS: Acetaminophen-Codeine 300-30mg TAB PO PRN (04:13)
[2019-09-28 04:28] VITALS: RESP 16
[2019-09-28] MEDS: LOSARTAN 50 MG TAB PO SCH (07:58)
[2019-09-28] MEDS: VENLAFAXINE HCL ER 75 MG CAP PO SCH (07:59)
[2019-09-28] MEDS: HYDROCHLOROTHIAZIDE 25 MG TAB PO SCH (07:59)
[2019-09-28] MEDS: ESCITALOPRAM 10 MG TAB PO SCH (07:59)
[2019-09-28] MEDS: amLODIPine 10 MG TAB PO SCH (07:59)
[2019-09-28 08:10] VITALS: BP 144/54; PULSE 72; TEMP 98
[2019-09-28] MEDS: PANTOPRAZOLE 40 MG/10 ML VIAL IVP SCH (08:10)
[2019-09-28 08:32] LABS: Anisocytosis Slight; HCT 28.4 % (34.0-46.0); HGB 8.9 gm/dL (11.4-16.0); Hypochromasia Marked; MCH 30.7 pg (25.0-35.0); MCHC 31.2 g/dL (31.0-37.0); MCV 98.3 fL (80.0-100.0); Macrocytosis Slight; Platelet Count 375 k/uL (150-450); Poikilocytosis Slight; RBC 2.89 m/uL (3.80-5.40); RDW 17.2 % (11.5-15.5)
[2019-09-28 08:38] LABS: Calcium 8.8 mg/dL (8.4-10.2); Potassium 4.5 mmol/L (3.5-5.1)
[2019-09-28] MEDS: LACTATED RINGERS 1,000 ML IV SCH (09:20)
[2019-09-28] MEDS: SODIUM FERRIC GLUCONAT-SUCROSE 125 MG in SODIUM CHLORIDE 0.9% 100 ML IVPB SCH (09:24)
--- NOTE | 2019-09-28 10:21 | P.PN ---
Subjective Progress Note Date: 09/28/19 Principal diagnosis: Anemia of acute blood loss, GI bleed, bleeding angiectasia Patient is seen lying in bed tolerating her diet. No abdominal pain. No nausea or vomiting. No signs or symptoms of GI bleed.plan is for discharge today. Objective - Vital Signs Vital signs: Vital Signs Temp 98.0 F 09/28/19 07:52 Pulse 72 09/28/19 07:52 Resp 16 09/28/19 08:42 BP 144/54 09/28/19 07:52 Pulse Ox 96 09/28/19 07:52 Intake & Output 09/27/19 09/28/19 09/28/19 18:59 06:59 18:59 Intake Total 300 240 240 Output Total 600 Balance -300 240 240 Weight 70.8 kg Intake: Oral 300 240 240 Output: Urine 600 Other: Voiding Method Toilet Toilet Toilet # Voids 3 1 - Exam On physical examination, patient appears comfortable in no apparent distress. HEAD: Normocephalic, atraumatic. EYES: No scleral icterus. No conjunctival injection. MOUTH: No lesions, tongue midline. NECK: Trachea midline, no gross abnormalities. ABDOMEN: Soft, obese. Bowel sounds are positive. No organomegaly. No guarding or rigidity. EXTREMITIES: No pedal edema. SKIN: No rashes, no jaundice. NEUROLOGIC: Alert and oriented x3. No focal deficits. 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 Patient found to be anemic with hemoglobin of 5.3. She denies any signs or symptoms of GI bleeding at this time however given history of bleeding small bowel angiodysplasia suspicion is for possible small bowel bleed. Hemoglobin however has been stable after transfusion. Last EGD was in 05/2018 with findings of duodenal angiectasia treated with argon plasma coagulation therapy. Patient has a known history of iron deficiency anemia and is given supplementation with iron infusions and vitamin B12 in the outpatient setting, she follows up with hematology. EGD performed was significant for a moderate sized hiatal hernia with multiple angiectasia noted one which was actively bleeding, they were treated with argon plasma coagulation therapy. Current Visit: Yes Status: Acute Code(s): K92.2 - GASTROINTESTINAL HEMORRHAGE, UNSPECIFIED SNOMED Code(s): 27776028 (2) Iron deficiency anemia Current Visit: Yes Status: Acute Code(s): D50.9 - IRON DEFICIENCY ANEMIA, U NSPECIFIED SNOMED Code(s): 06758812 Plan: Supportive care Continue to monitor hemoglobin and hematocrit and transfuse as needed Okay for soft diet Continue to monitor BMP, CBC Continue monitor for signs or symptoms of GI bleeding Thank you for allowing us to participate in the care of the patient
--- NOTE | 2019-09-28 12:49 | P.PN ---
Subjective Progress Note Date: 09/28/19 Principal diagnosis: GI blood loss anemia hemoglobin is improved, no signs of bleeding Objective - Vital Signs Vital signs: Vital Signs Temp 98.0 F 09/28/19 07:52 Pulse 72 09/28/19 07:52 Resp 16 09/28/19 08:42 BP 144/54 09/28/19 07:52 Pulse Ox 96 09/28/19 07:52 Intake & Output 09/27/19 09/28/19 09/28/19 18:59 06:59 18:59 Intake Total 300 240 240 Output Total 600 Balance -300 240 240 Weight 70.8 kg Intake: Oral 300 240 240 Output: Urine 600 Other: Voiding Method Toilet Toilet Toilet # Voids 3 1 - Exam GEn: ALert and Oriented, NAD HEad: NT, AT Neck: Supple, Trachea Midline Lungs: CTA Bilateral Heart: Tachy ABdomen: Mild Guarding, Non-distended Ext: No edema Mood: Calm - Labs CBC & Chem 7: 09/28/19 07:48 09/28/19 07:48 Labs: Abnormal Lab Results - Last 24 Hours (Table) 09/27/19 09/28/19 09/28/19 Range/Units 17:17 07:48 07:48 RBC 2.74 L 2.89 L (3.80-5.40) m/uL Hgb 8.1 L 8.9 L (11.4-16.0) gm/dL Hct 26.6 L 28.4 L (34.0-46.0) % MCHC 30.5 L (31.0-37.0) g/dL RDW 17.4 H 17.2 H (11.5-15.5) % Chloride 114 H (98-107) mmol/L Carbon Dioxide 18 L (22-30) mmol/L BUN 34 H (7-17) mg/dL Creatinine 1.70 H (0.52-1.04) mg/dL Glucose 113 H (74-99) mg/dL Assessment and Plan Plan: Assessment and Recommendations: 1. Normocytic Anemia: Acute on Chronic:Improved - On admission hemoglobin 5.7 and status post PRBC - Iron deficiency component secondary to likely GI blood loss from AVM - History of B12 and Iron deiciency, last IV iron in July 2019 - Transfuse PRBC hemoglobin less than 7 - GI is following EGD Scope 4/22 - Daily CBC - Hemoglobin 8.9 today, continue IV iron 2. Abdominal and Chest Pain: - Likely secondary to etiology of blood loss and anemia - Symptom control 3. Acute on Chronic renal insufficiency - Unknown stage taken per medical record Plan: - Parental Iron day 3/3 day, then follow-up in office to continue PRN secondary to GI AVMs - If discharged follow up in office this week to receive Faraheme and then will closely monitor cbc outpatient for Iron infusions Physician Attest: I have completed the full history and physical and developed the full impression and plan, agree with dictation. Dictated as a scribe
--- NOTE | 2019-09-28 14:50 | P.DS ---
Providers Date of admission: 09/24/19 18:16 Expected date of discharge: 09/28/19 Attending physician: Ezio Cordon Consults: 09/24/19 18:11 Consult Physician Stat Consulting Provider: Gem Dubois Consult Reason/Comments: Anemia Do you want consulting provider notified?: Yes 09/24/19 18:12 Consult Physician Routine Consulting Provider: Estella Corrigan Consult Reason/Comments: GI bleed Do you want consulting provider notified?: Yes Primary care physician: [facility] Course: 79-year-old female one of my office patient with known for the last 5 years with history of hypertension, chronic kidney disease, restless leg syndrome, chronic anemia with iron infusion on blood transfusion she seen oncology on regular basis and has CBC every month with iron infusion expected every 6-8 weeks. Her last hemoglobin has been running above 10 g apparently she was in the emergency room 2 days ago with slight increase abdominal pain and discomfort was diagnosed with worsening have hernia with possible active bleeding ulcer refused to be hospitalized at the time ended up coming back to the emergency department today at [facility] for increase and worsening abdominal pain, associated with worsening shortness of breath and mild chest pain. Apparently patient has been having symptom for the last 4-5 days become much worse in the last 24 hours she was supposed to follow up in our office patient with symptoms become much worse ended up coming to the emergency department and was seen today found to have hemoglobin in the 5 level with much worsening compared to 2 days ago patient is more symptomatic with anemia apparently declined any black stools or tarry stools no bright red blood per rectum. Patient last colonoscopy and EGD has been last 18 months. 09/24: Patient is seen by GI and oncology. Patient only follows with Dr. Dubois in the office. Patient is denying any complaints today. She is ambulatory in her room without any lightheadedness or dizziness. Repeat hemoglobin is 8.8 following 2 units of packed RBCs. She is very anxious to be discharged home. She is agreeable to stay another day. Patient is afebrile, heart rate 80, blood pressure 155/71 and pulse ox 95% on room air. Patient is scheduled for EGD tomorrow. 09/25: Patient underwent EGD today with Dr. Beltre that revealed multiple small bowel angiectasia treated with argon plasma coagulation therapy, one which was actively oozing blood with hemostasis achieved. Moderate hiatal hernia. Hemoglobin this morning is 8.2 and a repeat draw will be done this afternoon followed by one in the morning. Other lab work reveals BUN of 53 and creatinine 1.91, sodium 142, potassium 4.5, chloride 117, CO2 18. Iron 22, TIBC 367, iron saturation 5.99, LDH 1474, vitamin B12 524, folate greater than 24. Patient has been started on a full liquid diet. Anticipate possible discharge tomorrow. 09/26: Patient is followed by oncology with plan for iron infusion 3 doses and follow-up in the office as needed. Patient states that she is eating okay. She has not had a bowel movement. Repeat hemoglobin this morning is at 7.7 and will be rechecked this afternoon and in the morning. If no signs of bleeding, most likely, patient will be discharged home tomorrow. Repeat blood work also revealed BUN of 38 creatinine 1.72. The patient is tolerating clear liquid diet which has been low fiber diet. 09/27:patient is tolerating a low fiber diet without any difficulties. Repeat hemoglobin yesterday afternoon was 8.1 and this morning is 8.9. BUN 34 and creatinine 1.7.no signs of bleeding. Patient has been cleared for discharge by consultants. Patient will be discharged home today in stable condition. Discharge diagnoses: 1. Acute blood loss anemia secondary to AVM status post transfusion of 2 units packed RBCs. 2. Acute GI bleed status post EGD and argon plasma coagulation therapy. 3. Worsening dyspnea secondary to anemia. 4. Chronic B12 deficiency anemia. 5. Mild acute kidney injury with chronic kidney disease stage III. 6. Hypertension. 7. Recurrent depression 8. Restless leg syndrome 9. Chronic arthralgia mostly osteoarthritis 10. Chronic pain syndrome Discharge plan: home on Tuesday Impression and plan of care have been directed as dictated by the signing physician. Corina Phan nurse practitioner acting as scribe for signing physician. Patient Condition at Discharge: Good Plan - Discharge Summary Discharge Rx Participant: No New Discharge Prescriptions: New Bisacodyl [Dulcolax] 5 mg PO DAILY #30 tablet. Polyethylene Glycol 3350 [Miralax] 17 gm PO DAILY #30 packet Omeprazole [PriLOSEC] 40 mg PO BID #60 cap Continue Vit C/E/Zn/Coppr/Lutein/Zeaxan [Preservision Areds 2 Softgel] 2 cap PO DAILY Acetaminophen-Codeine 300-30mg [Tylenol w/codeine #3] 0.5 tab PO Q12H PRN PRN Reason: Pain ALPRAZolam [Xanax] 0.25 mg PO HS PRN PRN Reason: Anxiety amLODIPine [Norvasc] 10 mg PO DAILY rOPINIRole HCL [Requip] 1 - 2 mg PO HS PRN PRN Reason: RESTLESS LEGS Venlafaxine HCl [Effexor XR] 150 mg PO BID Losartan Potassium 100 mg PO DAILY Hydrochlorothiazide 25 mg PO DAILY Escitalopram [Lexapro] 10 mg PO DAILY Acetaminophen Tab [Tylenol] 1,000 mg PO Q6HR PRN PRN Reason: Pain Discontinued Omeprazole 40 mg PO DAILY Discharge Medication List Vit C/E/Zn/Coppr/Lutein/Zeaxan [Preservision Areds 2 Softgel] 2 cap PO DAILY 11/15/16 [History] ALPRAZolam [Xanax] 0.25 mg PO HS PRN 09/24/19 [History] Acetaminophen Tab [Tylenol] 1,000 mg PO Q6HR PRN 09/24/19 [History] Acetaminophen-Codeine 300-30mg [Tylenol w/codeine #3] 0.5 tab PO Q12H PRN 09/24/19 [History] Escitalopram [Lexapro] 10 mg PO DAILY 09/24/19 [History] Hydrochlorothiazide 25 mg PO DAILY 09/24/19 [History] Losartan Potassium 100 mg PO DAILY 09/24/19 [History] Venlafaxine HCl [Effexor XR] 150 mg PO BID 09/24/19 [History] amLODIPine [Norvasc] 10 mg PO DAILY 09/24/19 [History] rOPINIRole HCL [Requip] 1 - 2 mg PO HS PRN 09/24/19 [History] Bisacodyl [Dulcolax] 5 mg PO DAILY #30 tablet. 09/28/19 [Rx] Omeprazole [PriLOSEC] 40 mg PO BID #60 cap 09/28/19 [Rx] Polyethylene Glycol 3350 [Miralax] 17 gm PO DAILY #30 packet 09/28/19 [Rx] Follow up Appointment(s)/Referral(s): Ezio Cordon MD [Primary Care Provider] - 1 Week Gem Dubois MD [STAFF PHYSICIAN] - 10 Days Patient Instructions/Handouts: Gastrointestinal Bleeding (DC), Iron Deficiency Anemia (DC) Discharge Disposition: HOME SELF-CARE
== END 2019-09-28 10:47 | disposition home or self-care (01) | DRG 378 ==
LOC: EC 15:21 → 3SCARD 18:16 → 4SSUR 09-26 18:12
PROVIDERS: ADMIT Internal Medicine Geriatric Medicine; ATTEND Internal Medicine Geriatric Medicine
PROC: 30233N1 Transfusion of Nonautologous Red Blood Cells into Peripheral Vein, Percutaneous Approach (ICD-10-PCS; 2019-09-24)
PROC: 0W3P8ZZ Control Bleeding in Gastrointestinal Tract, Via Natural or Artificial Opening Endoscopic (ICD-10-PCS; principal; 2019-09-26 08:45)
DX: K31.811 Angiodysplasia of stomach and duodenum with bleeding (principal); D62 Acute posthemorrhagic anemia; Q60.0 Renal agenesis, unilateral; F33.9 Major depressive disorder, recurrent, unspecified; N17.9 Acute kidney failure, unspecified; D51.9 Vitamin B12 deficiency anemia, unspecified; D63.1 Anemia in chronic kidney disease; N18.3 Chronic kidney disease, stage 3 (moderate); I13.10 Hypertensive heart and chronic kidney disease without heart failure, with stage 1 through stage 4 chronic kidney disease, or unspecified chronic kidney disease; K44.9 Diaphragmatic hernia without obstruction or gangrene; H91.90 Unspecified hearing loss, unspecified ear; K21.9 Gastro-esophageal reflux disease without esophagitis; G25.81 Restless legs syndrome; N20.0 Calculus of kidney; R06.02 Shortness of breath; M19.90 Unspecified osteoarthritis, unspecified site; H57.9 Unspecified disorder of eye and adnexa; G89.4 Chronic pain syndrome; M54.5 Low back pain; K57.90 Diverticulosis of intestine, part unspecified, without perforation or abscess without bleeding; Z79.899 Other long term (current) drug therapy; Z90.49 Acquired absence of other specified parts of digestive tract; Z87.820 Personal history of traumatic brain injury; Z98.890 Other specified postprocedural states; Z87.828 Personal history of other (healed) physical injury and trauma; Z87.891 Personal history of nicotine dependence
CPT/HCPCS: 36415; 36430; 43270; 71046; 80048; 80053; 82150; 82272; 82607; 82668; 82728; 82746; 83540; 83550; 83615; 83690; 83921; 84484; 85025; 85027; 85045; 85610; 85730; 86850; 86900; 86901; 86920; 93005; 96374; 96375; 99285

== ENCOUNTER 2019-10-11 14:22 | Inpatient (IN) | payer MEDICARE, BC ==
[2019-10-11 15:38] LABS: Anisocytosis Slight; Hypochromasia Marked; MCHC 30.2 g/dL (31.0-37.0); MCV 99.5 fL (80.0-100.0); Macrocytosis Slight; Platelet Count 344 k/uL (150-450); RDW 17.5 % (11.5-15.5); WBC 8.1 k/uL (3.8-10.6)
[2019-10-11 15:47] LABS: HCT 19.9 % (34.0-46.0)
[2019-10-11 15:49] LABS: ALT 12 U/L (4-34); AST 20 U/L (14-36); African American GFR (CKD) 44 (>60 ml/min/1.73 sqM); Albumin 3.3 g/dL (3.5-5.0); Alkaline Phosphatase 86 U/L (38-126); Anion Gap 8 mmol/L; Blood Urea Nitrogen 29 mg/dL (7-17); Calcium 8.8 mg/dL (8.4-10.2); Carbon Dioxide 19 mmol/L (22-30); Chloride 113 mmol/L (98-107); Glucose 106 mg/dL (74-99); Magnesium 1.7 mg/dL (1.6-2.3); Non-African American GFR(CKD) 38 (>60 ml/min/1.73 sqM); Potassium 5.1 mmol/L (3.5-5.1); Sodium 140 mmol/L (137-145); Total Bilirubin <0.1 mg/dL (0.2-1.3); Total Protein 5.8 g/dL (6.3-8.2)
--- NOTE | 2019-10-11 15:59 | XR ---
EXAMINATION TYPE: XR chest 2V DATE OF EXAM: 10/11/2019 COMPARISON: 09/24/2019 HISTORY: Chest pain and syncope TECHNIQUE: Frontal and lateral views of the chest are obtained. FINDINGS: Diffuse osseous demineralization and exaggerated thoracic kyphosis. Vertebral body heights are similar to the prior. Cardiomediastinal silhouette is enlarged. There is continued strand-like b ibasilar atelectasis. Hyperinflation again suggest underlying COPD. No new focal consolidation, pleur al effusion or pneumothorax. IMPRESSION: Stable findings from the prior of 09/24/2019 with bibasilar strand-like atelectasis, poss ible underlying COPD and enlarged cardiomediastinal silhouette.
[2019-10-11 16:07] LABS: Basophils # (M) 0.08 k/uL (0-0.2); Eosinophils # (M) 0.41 k/uL (0-0.7); Lymphocytes # (M) 0.89 k/uL (1.0-4.8); Monocytes # (M) 0.57 k/uL (0-1.0); Neutrophils # (M) 6.16 k/uL (1.3-7.7); Neutrophils % (M) 76 %; Nucleated Red Blood Cells 0 /100 WBC (0-0); Polychromasia Present; Total Cells Counted 100
[2019-10-11] MEDS ORDERED: PANTOPRAZOLE 40 MG/10 ML VIAL IVP STA (16:14)
[2019-10-11 16:51] LABS: INR 0.9 (<1.2); Partial Thromboplastin Time 22.2 sec (22.0-30.0); Prothrombin Time 9.5 sec (9.0-12.0)
--- NOTE | 2019-10-11 16:51 | XR ---
EXAMINATION TYPE: XR KUB DATE OF EXAM: 10/11/2019 4:40 PM CLINICAL HISTORY: GI bleed, evaluate for pneumoperitoneum, abdominal pain TECHNIQUE: Single upright image of the abdomen is obtained. COMPARISON: 09/20/2019. FINDINGS: No pneumoperitoneum is seen. No dilated large or small bowel. There is diffuse osseous jannie neralization. No suspicious calcification in the abdomen or pelvis.. IMPRESSION: Nonobstructive bowel gas pattern. No pneumoperitoneum seen.
[2019-10-11] MEDS ORDERED: NITROGLYCERIN SL TABS 0.4 MG TAB SUBLINGUAL PRN (18:25)
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
[2019-10-11] MEDS ORDERED: BISACODYL 5 MG TABLET.DR PO PRN (20:23)
[2019-10-11] MEDS ORDERED: ACETAMINOPHEN TAB 325 MG TAB PO PRN (20:23)
[2019-10-11] MEDS: VENLAFAXINE HCL ER 150 MG CAP PO SCH (22:29)
[2019-10-12 03:30] LABS: Cholesterol 138 mg/dL (<200); HDL Cholesterol 35 mg/dL (40-60); LDL Cholesterol,Calculated 80 mg/dL (0-99); Triglycerides 117 mg/dL (<150)
[2019-10-12 03:33] LABS: Anisocytosis Slight; Basophils # (A) 0.1 k/uL (0-0.2); Basophils % (A) 1 %; Eosinophils # (A) 0.4 k/uL (0-0.7); Eosinophils % (A) 5 %; HCT 26.4 % (34.0-46.0); Hypochromasia Marked; Lymphocytes # (A) 0.7 k/uL (1.0-4.8); Lymphocytes % (A) 10 %; MCH 29.7 pg (25.0-35.0); MCHC 30.6 g/dL (31.0-37.0); MCV 97.2 fL (80.0-100.0); Macrocytosis Slight; Mean Platelet Volume 7.7; Monocytes # (A) 0.8 k/uL (0-1.0); Monocytes % (A) 11 %; Neutrophils # (A) 4.4 k/uL (1.3-7.7); Neutrophils % (A) 62 %; Platelet Count 275 k/uL (150-450); Poikilocytosis Slight; RBC 2.71 m/uL (3.80-5.40); RDW 16.7 % (11.5-15.5); WBC 7.1 k/uL (3.8-10.6)
[2019-10-12 03:36] LABS: HGB 8.1 gm/dL (11.4-16.0)
[2019-10-12 04:22] LABS: Band Neutrophils % 1 %; Basophils # (M) 0.14 k/uL (0-0.2); Metamyelocytes # (M) 0.07 k/uL (0); Metamyelocytes % 1 %; Monocytes # (M) 0.64 k/uL (0-1.0); Neutrophils % (M) 73 %; Nucleated Red Blood Cells 0 /100 WBC (0-0); Total Cells Counted 100
[2019-10-12 04:23] LABS: Polychromasia Present
[2019-10-12] MEDS: PANTOPRAZOLE 40 MG TABLET PO SCH ×2 (06:21→18:02)
[2019-10-12] MEDS: VENLAFAXINE HCL ER 150 MG CAP PO SCH ×2 (10:25→20:42)
[2019-10-12] MEDS: ESCITALOPRAM 10 MG TAB PO SCH (10:25)
[2019-10-12] MEDS: LOSARTAN 50 MG TAB PO SCH (10:25)
[2019-10-12] MEDS: amLODIPine 10 MG TAB PO SCH (10:26)
[2019-10-12] MEDS: HYDROCHLOROTHIAZIDE 25 MG TAB PO SCH (10:27)
[2019-10-12] MEDS: NITROGLYCERIN OINT 1 INCH/GM PACKET TOPICAL SCH ×2 (10:27→18:01)
[2019-10-12] MEDS: METOPROLOL TARTRATE 25 MG TAB PO SCH ×2 (10:27→20:41)
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
--- NOTE | 2019-10-12 12:18 | ECHOF ---
Referral Reason:sob, cp MEASUREMENTS -------- HEIGHT: 160.0 cm WEIGHT: 73.5 kg BP: IVSd: 0.9 cm (0.6 - 1.1) LVIDd: 3.5 cm (3.9 - 5.3) LVPWd: 1.0 cm (0.6 - 1.1) IVSs: 1.4 cm LVIDs: 1.5 cm LVPWs: 1.5 cm LAESV Index (A-L): 27.52 ml/m Ao Diam: 2.5 cm (2.0 - 3.7) AV Cusp: 1.6 cm (1.5 - 2.6) LA Diam: 3.1 cm (2.7 - 3.8) MV EXCURSION: 15.965 mm (> 18.000) MV EF SLOPE: 130 mm/s (70 - 150) EPSS: 1.1 cm MV E Niko: 1.14 m/s MV DecT: 268 ms MV A Niko: 1.25 m/s MV E/A Ratio: 0.92 RAP: 5.00 mmHg RVSP: 25.99 mmHg FINDINGS -------- Sinus rhythm. This was a technically good study. The left ventricular size is normal. Left ventricular wall thickness is normal. Overall left vent ricular systolic function is normal with, an EF between 55 - 60 %. Normal LAP Grade 1 Diastolic Dys function. The right ventricle is normal in size. The left atrial size is normal. Normal LA size by volume 22+/-6 ml/m2. The right atrial size is normal. The aortic valve is trileaflet and appears structurally normal. The mitral valve is normal. Mild mitral regurgitation is present. The tricuspid valve appears structurally normal. Mild tricuspid regurgitation present. Right vent ricular systolic pressure is normal at < 35 mmHg. There is no pulmonic regurgitation present. The aortic root size is normal. Normal inferior vena cava with normal inspiratory collapse consistent with estimated right atrial pre ssure of 5 mmHg. There is no pericardial effusion. CONCLUSIONS -------- 1. Sinus rhythm. 2. This was a technically good study. 3. The left ventricular size is normal. 4. Left ventricular wall thickness is normal. 5. Overall left ventricular systolic function is normal with, an EF between 55 - 60 %. 6. Normal LAP Grade 1 Diastolic Dysfunction. 7. The right ventricle is normal in size. 8. The left atrial size is normal. 9. Normal LA size by volume 22+/-6 ml/m2. 10. The right atrial size is normal. 11. The aortic valve is trileaflet and appears structurally normal. 12. The mitral valve is normal. 13. Mild mitral regurgitation is present. 14. The tricuspid valve appears structurally normal. 15. Mild tricuspid regurgitation present. 16. Right ventricular systolic pressure is normal at < 35 mmHg. 17. There is no pulmonic regurgitation present. 18. The aortic root size is normal. 19. Normal inferior vena cava with normal inspiratory collapse consistent with estimated right atrial pressure of 5 mmHg. 20. There is no pericardial effusion. [employer] DIPPER: Lianet Knox RDCS
[2019-10-12 13:24] LABS: Anisocytosis Slight; HCT 26.4 % (34.0-46.0); HGB 8.2 gm/dL (11.4-16.0); Hypochromasia Marked; MCH 30.4 pg (25.0-35.0); MCHC 31.2 g/dL (31.0-37.0); MCV 97.5 fL (80.0-100.0); Macrocytosis Slight; Mean Platelet Volume 8.2; Platelet Count 295 k/uL (150-450); Poikilocytosis Slight; RBC 2.71 m/uL (3.80-5.40); RDW 16.6 % (11.5-15.5); WBC 6.1 k/uL (3.8-10.6)
[2019-10-12] MEDS ORDERED: PROPOFOL 10 MG/ML 20 ML VIAL IV ONE (13:46)
[2019-10-12] MEDS ORDERED: LIDOCAINE 1% INJ 10MG/ML (20 ML MDV) ONE (13:46)
[2019-10-12 13:58] LABS: Eosinophils # (M) 0.37 k/uL (0-0.7); Lymphocytes # (M) 0.49 k/uL (1.0-4.8); Monocytes # (M) 0.55 k/uL (0-1.0); Neutrophils % (M) 77 %; Nucleated Red Blood Cells 0 /100 WBC (0-0); Polychromasia Present; Total Cells Counted 100
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
[2019-10-12 19:17] LABS: Anisocytosis Slight; HCT 28.8 % (34.0-46.0); HGB 8.9 gm/dL (11.4-16.0); Hypochromasia Marked; MCH 30.5 pg (25.0-35.0); MCHC 30.8 g/dL (31.0-37.0); MCV 98.8 fL (80.0-100.0); Macrocytosis Slight; Mean Platelet Volume 8.1; Platelet Count 326 k/uL (150-450); Poikilocytosis Slight; RBC 2.92 m/uL (3.80-5.40); RDW 16.3 % (11.5-15.5); WBC 7.1 k/uL (3.8-10.6)
[2019-10-12 20:31] LABS: Band Neutrophils % 1 %; Eosinophils # (M) 0.28 k/uL (0-0.7); Lymphocytes # (M) 1.14 k/uL (1.0-4.8); Monocytes # (M) 0.28 k/uL (0-1.0); Neutrophils % (M) 75 %; Nucleated Red Blood Cells 0 /100 WBC (0-0); Total Cells Counted 100
[2019-10-12 20:32] LABS: Polychromasia Present
[2019-10-12] MEDS: ATORVASTATIN 20 MG TAB PO SCH (20:41)
[2019-10-13] MEDS: NITROGLYCERIN OINT 1 INCH/GM PACKET TOPICAL SCH ×3 (00:28→08:42)
[2019-10-13] MEDS: PANTOPRAZOLE 40 MG TABLET PO SCH ×2 (06:27→17:28)
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
[2019-10-13 07:53] LABS: Albumin 3.2 g/dL (3.5-5.0); Calcium 8.7 mg/dL (8.4-10.2); Potassium 5.2 mmol/L (3.5-5.1); Total Bilirubin 0.2 mg/dL (0.2-1.3); Total Protein 5.9 g/dL (6.3-8.2)
[2019-10-13] MEDS: VENLAFAXINE HCL ER 150 MG CAP PO SCH ×2 (08:40→21:07)
[2019-10-13] MEDS: METOPROLOL TARTRATE 25 MG TAB PO SCH ×2 (08:40→21:07)
[2019-10-13] MEDS: LOSARTAN 50 MG TAB PO SCH (08:40)
[2019-10-13] MEDS: ESCITALOPRAM 10 MG TAB PO SCH (08:40)
[2019-10-13] MEDS: HYDROCHLOROTHIAZIDE 25 MG TAB PO SCH (08:40)
[2019-10-13] MEDS: amLODIPine 10 MG TAB PO SCH (08:40)
--- NOTE | 2019-10-13 09:53 | P.PN ---
Subjective Progress Note Date: 10/13/19 The supplies and 79-year-old female patient with history of GI bleed, hypertension and renal disease. She was sent to the hospital here by her primary care physician for anemia. She is recently admitted a few weeks ago for acute blood loss anemia secondary to GI bleed and underwent an EGD at that time showing multiple angiectasia which were treated with argon plasma coagulation therapy. Upon arrival here hemoglobin was 6 and she received 2 units of packed red blood cells. Most recent hemoglobin was 8.9. Patient had also been complaining of some chest heaviness with walking. As well as some shortness of breath. She is initiated on Nitropaste yesterday with improvement. Patient says she is able to get up to the bathroom without any difficulties at this time. In reviewing the notes, it appears patient will be having an EGD with today. Objective - Vital Signs Vital signs: Vital Signs Temp 98.1 F 10/13/19 08:00 Pulse 60 10/13/19 08:00 Resp 18 10/13/19 08:00 BP 133/58 10/13/19 08:00 Pulse Ox 94 L 10/13/19 08:00 Intake & Output 10/12/19 10/13/19 10/13/19 18:59 06:59 18:59 Intake Total 780 Balance 780 Weight 73.8 kg Intake: Oral 780 Other: # Voids 3 1 - Exam PHYSICAL EXAMINATION: HEENT: Head is atraumatic, normocephalic. Pupils equal, round. Neck is supple. There is no elevated jugular venous pressure. Hard of hearing. HEART EXAMINATION: Heart sounds regular, S1 and S2 normal. No murmur or gallop heard. CHEST EXAMINATION: Lungs are clear to auscultation. No chest wall tenderness is noted on palpation or with deep breathing. ABDOMEN: Soft, nontender. Bowel sounds are heard. No organomegaly noted. EXTREMITIES: 2+ peripheral pulses with no evidence of peripheral edema and no calf tenderness noted. NEUROLOGIC patient is awake, alert and oriented x3. . - Labs CBC & Chem 7: 10/12/19 18:01 10/13/19 07:13 Labs: Abnormal Lab Results - Last 24 Hours (Table) 10/12/19 10/12/19 10/13/19 Range/Units 11:56 18:01 07:13 RBC 2.71 L 2.92 L (3.80-5.40) m/uL Hgb 8.2 L 8.9 L (11.4-16.0) gm/dL Hct 26.4 L 28.8 L (34.0-46.0) % MCHC 30.8 L (31.0-37.0) g/dL RDW 16.6 H 16.3 H (11.5-15.5) % Lymphocytes # (Manual) 0.49 L (1.0-4.8) k/uL Potassium 5.2 H (3.5-5.1) mmol/L Chloride 114 H (98-107) mmol/L Carbon Dioxide 20 L (22-30) mmol/L BUN 31 H (7-17) mg/dL Creatinine 1.57 H (0.52-1.04) mg/dL Total Protein 5.9 L (6.3-8.2) g/dL Albumin 3.2 L (3.5-5.0) g/dL Assessment and Plan Assessment: 1 acute blood loss anemia secondary to GI bleeding #2 chest heaviness with associated shortness of breath suggestive of demand ischemia secondary to anemia, no acute changes on EKG, troponins negative 3, improved with nitro paste #3 hypertension #4 chronic kidney disease with worsening BUN and creatinine today. Plan: From plasterer journeyman perspective, we will stop Nitropaste and add Imdur. Discontinue hydrochlorothiazide due to worsening renal function and hypotension. We'll continue to follow the patient for further recommendations accordingly. ELEMENTARY ART TEACHER note has been reviewed, I agree with a documented findings and plan of care. Patient was seen and examined.
--- NOTE | 2019-10-13 09:54 | P.PN ---
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 This is an 79-year-old female patient of Dr. Cordon with past medical history of hypertension, chronic kidney disease stage III, restless leg syndrome, chronic anemia with iron infusions and blood transfusions in the past, chronic B12 deficiency anemia, recurrent depression, restless leg syndrome. Patient had recent hospitalization in September which time she was treated for acute blood loss anemia secondary to AVM status post transfusion of 2 units packed RBCs and status post EGD with argon plasma coagulation therapy. Patient states that she saw Dr. Cordon and was told that her blood count was low. She states she has been feeling weak. She also states she has black stools. No abdominal pain. No chest pain. Patient is extremely hard of hearing. Patient came into [facility] emergency center for evaluation. Patient was afebrile, heart rate in the 80s, blood pressure 111/68, pulse ox 97%. Hemoglobin is 6, BUN 29 creatinine 1.32, CO2 19, blood sugar 106. Liver function tests normal. Troponin negative. Coronavirus PCR not detected. Stool for occult blood positive. EKG sinus rhythm with no acute ST changes. KUB is nonobstructive bowel gas pattern. No pneumoperitoneum. Chest x-ray is stable with bibasilar strand-like atelectasis, possible underlying COPD and a large cardiomediastinal silhouette. This was compared to chest x-ray from September 23. Patient admitted to the cardiac stepdown unit, transfusion of 2 units packed RBC s with repeat hemoglobin 8.1. Cardiology consult and ordered Nitropaste 3 times daily, started atorvastatin and metoprolol 25 mg twice daily and hold antiplatelet medication. Echocardiogram reveals EF of 55-60%, mild mitral regurgitation, mild tricuspid regurgitation. GI is also on consult. 10/12: Hemoglobin is above 90 g since the initial transfusion, patient is scheduled for an EGD for possible AVM cauterization which will be done at 1:00 today, still hemodynamically stable, still nothing by mouth, we will advance diet recheck blood count the patient is stable without any further bleeding in the next 48 hours she'll be able to go home. Objective - Vital Signs Vital signs: Vital Signs Temp 98.1 F 10/13/19 08:00 Pulse 60 10/13/19 08:00 Resp 18 10/13/19 08:00 BP 133/58 10/13/19 08:00 Pulse Ox 94 L 10/13/19 08:00 Intake & Output 10/12/19 10/13/19 10/13/19 18:59 06:59 18:59 Intake Total 780 Balance 780 Weight 73.8 kg Intake: Oral 780 Other: # Voids 3 1 - Exam Review of Systems Constitutional: Reports fatigue, Reports weakness, Denies anorexia, Denies chills, Denies fever, Denies lethargy, Denies malaise, Denies poor appetite, Denies weight loss Eyes: denies blurred vision, denies pain Ears, nose, mouth and throat: Denies dysphagia, Denies headache, Denies nasal congestion, Denies nasal discharge, Denies sore throat, Denies vertigo Cardiovascular: Denies chest pain, Denies dyspnea on exertion, Denies edema, Denies shortness of breath, Denies syncope Respiratory: Denies cough, Denies cough with sputum, Denies dyspnea, Denies excessive sputum, Denies hemoptysis, Denies home oxygen, Denies sleep apnea, Denies wheezing Gastrointestinal: Reports melena, Denies abdominal pain, Denies BRBPR, Denies diarrhea, Denies loss of appetite, Denies nausea, Denies vomiting Genitourinary: Denies dysuria, Denies hematuria, Denies urgency, Denies urinary frequency Menstruation: Reports postmenopausal Musculoskeletal: Reports muscle weakness, Denies myalgias Integumentary: Denies pruritus, Denies rash, Denies wounds Neurological: Denies change in mentation, Denies change in speech, Denies gait dysfunction, Denies numbness, Denies seizures, Denies vertigo, Denies weakness Psychiatric: Denies anxiety, Denies depression Endocrine: Denies fatigue, Denies weight change Physical Exam Vitals: Gen: This is an 79-year-old female. She is resting but appears to be comfortable and in no acute distress. HEENT: Head is atraumatic, normocephalic. Pupils equal, round. Sclerae is anicteric. Significantly hard of hearing. NECK: Supple. No JVD. No lymphadenopathy. No thyromegaly. LUNGS: Clear to auscultation. No wheezes or rhonchi. No intercostal retractions. HEART: Regular rate and rhythm. No murmur. ABDOMEN: Soft. Bowel sounds are present. No masses. No tenderness. EXTREMITIES: No pedal edema. No calf tenderness. NEUROLOGICAL: Patient is awake, alert and oriented x3. Cranial nerves 2 through 12 are grossly intact. - Labs CBC & Chem 7: 10/12/19 18:01 10/13/19 07:13 Labs: Abnormal Lab Results - Last 24 Hours (Table) 10/12/19 10/12/19 10/13/19 Range/Units 11:56 18:01 07:13 RBC 2.71 L 2.92 L (3.80-5.40) m/uL Hgb 8.2 L 8.9 L (11.4-16.0) gm/dL Hct 26.4 L 28.8 L (34.0-46.0) % MCHC 30.8 L (31.0-37.0) g/dL RDW 16.6 H 16.3 H (11.5-15.5) % Lymphocytes # (Manual) 0.49 L (1.0-4.8) k/uL Potassium 5.2 H (3.5-5.1) mmol/L Chloride 114 H (98-107) mmol/L Carbon Dioxide 20 L (22-30) mmol/L BUN 31 H (7-17) mg/dL Creatinine 1.57 H (0.52-1.04) mg/dL Total Protein 5.9 L (6.3-8.2) g/dL Albumin 3.2 L (3.5-5.0) g/dL Assessment and Plan Plan: 1. Acute blood loss anemia most likely secondary to AVM status post transfusion of 2 units packed RBCs. Continue Protonix 40 mg oral twice daily. Monitor hemoglobin. Patient is going for EGD and possible cauterization for an AVM area in the stomach. 2. Acute GI bleed. Mostly from AVM lesion in the stomach area which will be cauterized today continue to watch hemoglobin twice a day and transfuse if hemoglobin drops below 7. 3. Recent hospitalization for acute blood loss anemia secondary to AVM status post transfusion of 2 units of RBCs and EGD with argon plasma coagulation therapy. 3. Worsening dyspnea secondary to anemia. Continue monitoring hemoglobin closely. Consult with cardiology appreciated. Echocardiogram as above. Nitropaste has been added, atorvastatin, Lopressor 25 mg twice daily. 4. Anginal symptoms: Most likely brought by the severity of the anemia and no further chest pain or shortness of breath since hemoglobin is above 80 g. 5. Chronic kidney disease stage III. Monitor electrolytes and renal function. 6. Hypertension. Continue hydrochlorothiazide 25 mg daily, losartan 100 mg daily, amlodipine 10 mg daily. 7. Recurrent depression. Continue Effexor or ex RR 150 mg twice a day and Lexapro 10 mg a day. 8. Restless leg syndrome. Continue Requip 2 mg daily at bedtime as needed. 9. Chronic arthralgia mostly osteoarthritis has been on Tylenol products at this point not been able to be on any anti-inflammatory agent. 10. Chronic pain syndrome: Has been on Tylenol 3 mostly for lower back pain continue Tylenol 3 as needed.
[2019-10-13] MEDS: ISOSORBIDE MONONITRATE ER 30 MG TAB.ER.24H PO SCH (11:53)
[2019-10-13] MEDS ORDERED: SODIUM CHLORIDE 0.9% 500 ML 500 ML IV ONE (13:47)
--- NOTE | 2019-10-13 14:12 | P.PCN ---
Date of Procedure: 10/13/19 Description of Procedure: BRIEF HISTORY: 79-year-old female with a past medical history significant for hypertension, chronic kidney disease, restless leg syndrome, chronic anemia requiring iron infusions and infusion of vitamin B12 in the past who presented to the hospital due to complaints of worsening weakness. The patient reports feeling weak and fatigued prior to presentation. She also reports shortness of breath on exertion. Patient has baseline hemoglobin in the 10 range. She follows up with the hematology service and has required transfusions of IV iron in the past as well as vitamin B12. The patient has had multiple endoscopic evaluations in the past with EGD performed on recent admission significant for multiple small bowel angiodysplasias treated with argon plasma coagulation therapy. She had colonoscopy in 08/2016 significant for diverticulosis and has undergone upper endoscopy/small bowel enteroscopy is in the past with findings of small bowel angiectasia treated with argon plasma coagulation therapy. Her hemoglobin was found to be markedly depressed on presentation at 6, improved after transfusion of packed red blood cells. She does report dark bowel movements at home but is on oral iron therapy. PROCEDURE PERFORMED: Esophagogastroduodenoscopy with argon plasma coagulation therapy for treatment of small bowel angioectasia. PREOPERATIVE DIAGNOSIS: Anemia of acute blood loss, melena, history of angioectasia. ESTIMATED BLOOD LOSS: Minimal. IV sedation per anesthesia. PROCEDURE: After informed consent was obtained, the patient was brought into the endoscopy unit. IV sedation was administered by Anesthesia under continuous monitoring. Initially the Olympus GIF-190 video endoscope was inserted into the mouth. Esophagus intubated without any difficulty. It was gradually advanced into the stomach and duodenum and carefully examined. The bulb and the second part of the duodenum appeared grossly normal, however there were 4 small bowel angiectasia noted in the second portion which were treated successfully with argon plasma coagulation therapy. The scope at this time was withdrawn to the stomach, adequately insufflated with air, and upon careful examination, mucosa of the antrum, body, cardia and the fundus appeared normal. The scope was then withdrawn into the esophagus. The GE junction was located at 36 cm from the incisors, with a 2 cm hiatal hernia noted. The esophagus appeared normal. There were no erosions or ulcerations seen and the patient tolerated the procedure well. IMPRESSION: 1. 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 2. Small hiatal hernia. RECOMMENDATIONS: The findings of this examination were discussed with the patient. Okay for full liquid diet. Continue to monitor hemoglobin and hematocrit and transfuse as needed. If further bleeding consider push enteroscopy or further evaluation. Otherwise continue medical management and iron supplementation.
[2019-10-13] MEDS: ATORVASTATIN 20 MG TAB PO SCH (21:08)
[2019-10-14] MEDS: PANTOPRAZOLE 40 MG TABLET PO SCH ×2 (06:31→16:42)
[2019-10-14 06:50] LABS: Anisocytosis Slight; HCT 29.6 % (34.0-46.0); HGB 8.9 gm/dL (11.4-16.0); Hypochromasia Marked; MCH 29.5 pg (25.0-35.0); MCV 98.4 fL (80.0-100.0); Macrocytosis Slight; Mean Platelet Volume 7.9; Platelet Count 356 k/uL (150-450); Poikilocytosis Slight; RBC 3.01 m/uL (3.80-5.40); RDW 16.4 % (11.5-15.5); WBC 6.8 k/uL (3.8-10.6)
[2019-10-14 07:01] LABS: Albumin 3.7 g/dL (3.5-5.0); Calcium 9.1 mg/dL (8.4-10.2); Potassium 4.8 mmol/L (3.5-5.1); Total Bilirubin 0.3 mg/dL (0.2-1.3); Total Protein 6.6 g/dL (6.3-8.2)
[2019-10-14] MEDS: VENLAFAXINE HCL ER 150 MG CAP PO SCH ×2 (07:41→20:45)
[2019-10-14] MEDS: LOSARTAN 50 MG TAB PO SCH (07:41)
[2019-10-14] MEDS: amLODIPine 10 MG TAB PO SCH (07:41)
[2019-10-14] MEDS: ISOSORBIDE MONONITRATE ER 30 MG TAB.ER.24H PO SCH (07:42)
[2019-10-14] MEDS: METOPROLOL TARTRATE 25 MG TAB PO SCH ×2 (07:42→20:45)
[2019-10-14] MEDS: ESCITALOPRAM 10 MG TAB PO SCH (07:42)
--- NOTE | 2019-10-14 09:23 | P.PN ---
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 This is an 79-year-old female patient of Dr. Cordon with past medical history of hypertension, chronic kidney disease stage III, restless leg syndrome, chronic anemia with iron infusions and blood transfusions in the past, chronic B12 deficiency anemia, recurrent depression, restless leg syndrome. Patient had recent hospitalization in September which time she was treated for acute blood loss anemia secondary to AVM status post transfusion of 2 units packed RBCs and status post EGD with argon plasma coagulation therapy. Patient states that she saw Dr. Cordon and was told that her blood count was low. She states she has been feeling weak. She also states she has black stools. No abdominal pain. No chest pain. Patient is extremely hard of hearing. Patient came into [facility] emergency center for evaluation. Patient was afebrile, heart rate in the 80s, blood pressure 111/68, pulse ox 97%. Hemoglobin is 6, BUN 29 creatinine 1.32, CO2 19, blood sugar 106. Liver function tests normal. Troponin negative. Coronavirus PCR not detected. Stool for occult blood positive. EKG sinus rhythm with no acute ST changes. KUB is nonobstructive bowel gas pattern. No pneumoperitoneum. Chest x-ray is stable with bibasilar strand-like atelectasis, possible underlying COPD and a large cardiomediastinal silhouette. This was compared to chest x-ray from September 23. Patient admitted to the cardiac stepdown unit, transfusion of 2 units packed RBC s with repeat hemoglobin 8.1. Cardiology consult and ordered Nitropaste 3 times daily, started atorvastatin and metoprolol 25 mg twice daily and hold antiplatelet medication. Echocardiogram reveals EF of 55-60%, mild mitral regurgitation, mild tricuspid regurgitation. GI is also on consult. 10/12: Hemoglobin is above 90 g since the initial transfusion, patient is scheduled for an EGD for possible AVM cauterization which will be done at 1:00 today, still hemodynamically stable, still nothing by mouth, we will advance diet recheck blood count the patient is stable without any further bleeding in the next 48 hours she'll be able to go home. 10/13: Patient hemoglobin still stable at 8.9 g no transfusion needed, she ended up going for EGD yesterday and found a few area of AVM were cauterized yesterday she is doing very well no sign of active bleed at this point, patient be seen GI today and probably advance her diet if she is doing well tomorrow can be discharged home tomorrow to keep running CBC weekly from now on for the next 6 weeks. Objective - Vital Signs Vital signs: Vital Signs Temp 98.1 F 10/14/19 07:39 Pulse 56 L 10/14/19 07:39 Resp 18 10/14/19 08:00 BP 138/59 10/14/19 07:39 Pulse Ox 94 L 10/14/19 07:39 Intake & Output 10/13/19 10/14/19 10/14/19 18:59 06:59 18:59 Intake Total 150 Balance 150 Weight 74 kg Intake: IV 150 Other: # Voids 2 - Exam Review of Systems Constitutional: Reports fatigue, Reports weakness, Denies anorexia, Denies chills, Denies fever, Denies lethargy, Denies malaise, Denies poor appetite, Denies weight loss Eyes: denies blurred vision, denies pain Ears, nose, mouth and throat: Denies dysphagia, Denies headache, Denies nasal congestion, Denies nasal discharge, Denies sore throat, Denies vertigo Cardiovascular: Denies chest pain, Denies dyspnea on exertion, Denies edema, Denies shortness of breath, Denies syncope Respiratory: Denies cough, Denies cough with sputum, Denies dyspnea, Denies excessive sputum, Denies hemoptysis, Denies home oxygen, Denies sleep apnea, Denies wheezing Gastrointestinal: Reports melena, Denies abdominal pain, Denies BRBPR, Denies diarrhea, Denies loss of appetite, Denies nausea, Denies vomiting Genitourinary: Denies dysuria, Denies hematuria, Denies urgency, Denies urinary frequency Menstruation: Reports postmenopausal Musculoskeletal: Reports muscle weakness, Denies myalgias Integumentary: Denies pruritus, Denies rash, Denies wounds Neurological: Denies change in mentation, Denies change in speech, Denies gait dysfunction, Denies numbness, Denies seizures, Denies vertigo, Denies weakness Psychiatric: Denies anxiety, Denies depression Endocrine: Denies fatigue, Denies weight change Physical Exam Vitals: Gen: This is an 79-year-old female. She is resting but appears to be comfortable and in no acute distress. HEENT: Head is atraumatic, normocephalic. Pupils equal, round. Sclerae is anicteric. Significantly hard of hearing. NECK: Supple. No JVD. No lymphadenopathy. No thyromegaly. LUNGS: Clear to auscultation. No wheezes or rhonchi. No intercostal retractions. HEART: Regular rate and rhythm. No murmur. ABDOMEN: Soft. Bowel sounds are present. No masses. No tenderness. EXTREMITIES: No pedal edema. No calf tenderness. NEUROLOGICAL: Patient is awake, alert and oriented x3. Cranial nerves 2 through 12 are grossly intact. - Labs CBC & Chem 7: 10/14/19 06:32 10/14/19 06:32 Labs: Abnormal Lab Results - Last 24 Hours (Table) 10/14/19 10/14/19 Range/Units 06:32 06:32 RBC 3.01 L (3.80-5.40) m/uL Hgb 8.9 L (11.4-16.0) gm/dL Hct 29.6 L (34.0-46.0) % MCHC 30.0 L (31.0-37.0) g/dL RDW 16.4 H (11.5-15.5) % Chloride 113 H (98-107) mmol/L Carbon Dioxide 20 L (22-30) mmol/L BUN 29 H (7-17) mg/dL Creatinine 1.66 H (0.52-1.04) mg/dL Assessment and Plan Plan: 1. Acute blood loss anemia most likely secondary to AVM status post transfusion of 2 units packed RBCs. Continue Protonix 40 mg oral twice daily. Monitor hemoglobin. Patient had EGD and a few area were cauterized yesterday successfully by GI, no sign of active bleed at this point. 2. Acute GI bleed. Mostly from AVM lesion in the stomach area which will be cauterized today continue to watch hemoglobin twice a day and transfuse if hemoglobin drops below 7. 3. Recent hospitalization for acute blood loss anemia secondary to AVM status post transfusion of 2 units of RBCs and EGD with argon plasma coagulation therapy. 3. Worsening dyspnea secondary to anemia. Continue monitoring hemoglobin closely. Consult with cardiology appreciated. Echocardiogram as above. Nitropaste has been added, atorvastatin, Lopressor 25 mg twice daily. 4. Anginal symptoms: Most likely brought by the severity of the anemia and no further chest pain or shortness of breath since hemoglobin is above 80 g. 5. Chronic kidney disease stage III. Monitor electrolytes and renal function. 6. Hypertension. Continue hydrochlorothiazide 25 mg daily, losartan 100 mg daily, amlodipine 10 mg daily. 7. Recurrent depression. Continue Effexor or ex RR 150 mg twice a day and Lexapro 10 mg a day. 8. Restless leg syndrome. Continue Requip 2 mg daily at bedtime as needed. 9. Chronic arthralgia mostly osteoarthritis has been on Tylenol products at this point not been able to be on any anti-inflammatory agent. 10. Chronic pain syndrome: Has been on Tylenol 3 mostly for lower back pain continue Tylenol 3 as needed. Discharge planning: We'll advance diet today and the patient is doing well tomorrow with no significant drop in hemoglobin can be discharged home safely.
--- NOTE | 2019-10-14 10:30 | PN ---
PROGRESS NOTE Mrs. Pastor is an 79-year-old female who presented with GI bleed. She underwent endoscopy yesterday with AVM cauterization. She is feeling better today. Her breathing is stable. She denies any symptoms of chest pain. She denies any dizziness or palpitations. She denies any nausea. She continues to be on amlodipine 10 mg daily, Lipitor 20 mg daily, isosorbide mononitrate 30 mg daily, losartan 100 mg daily, metoprolol tartrate 25 mg twice a day. PHYSICAL EXAMINATION: Blood pressure 138/59 with a heart rate in the 60s. LUNGS: Clear. HEART regular rate and rhythm, S1, S2. No S3 with systolic murmur. No diastolic murmur. No rub. ABDOMEN: Soft, nontender. Positive bowel sounds. No organomegaly. EXTREMITIES: No edema. LAB DATA: Lab data revealed a hemoglobin of 8.9, BUN and creatinine 29 and 1.66. IMPRESSION: 1. Gastrointestinal bleeding, status post transfusion and endoscopy. 2. Chest discomfort, stable. No further recurrence. 3. Hypertension. 4. Chronic kidney disease. RECOMMENDATIONS: I will continue present therapy. Follow her renal function. Increase her activity and depending on her progress, further recommendations will be made. MMODL / IJN: [id number] /
--- NOTE | 2019-10-14 17:59 | P.PN ---
Subjective Progress Note Date: 10/14/19 Principal diagnosis: GI bleed, bleeding angioectasia, anemia acute blood loss Patient is sitting bedside no nausea or vomiting. She is tolerating her diet and denies any signs or symptoms of GI bleed. Objective - Vital Signs Vital signs: Vital Signs Temp 98.1 F 10/14/19 07:39 Pulse 56 L 10/14/19 07:39 Resp 18 10/14/19 08:00 BP 138/59 10/14/19 07:39 Pulse Ox 94 L 10/14/19 07:39 Intake & Output 10/13/19 10/14/19 10/14/19 18:59 06:59 18:59 Intake Total 150 Balance 150 Weight 74 kg Intake: IV 150 Other: # Voids 2 - Exam On physical examination, patient appears comfortable in no apparent distress. HEAD: Normocephalic, atraumatic. EYES: No scleral icterus. No conjunctival injection. MOUTH: No lesions, tongue midline. NECK: Trachea midline, no gross abnormalities. ABDOMEN: Soft, nontender nondistended. Bowel sounds are positive. No organomegaly. No guarding or rigidity. EXTREMITIES: No pedal edema. SKIN: No rashes, no jaundice. NEUROLOGIC: Alert and oriented x3. No focal deficits. - Labs CBC & Chem 7: 10/14/19 06:32 10/14/19 06:32 Labs: Abnormal Lab Results - Last 24 Hours (Table) 10/14/19 10/14/19 Range/Units 06:32 06:32 RBC 3.01 L (3.80-5.40) m/uL Hgb 8.9 L (11.4-16.0) gm/dL Hct 29.6 L (34.0-46.0) % MCHC 30.0 L (31.0-37.0) g/dL RDW 16.4 H (11.5-15.5) % Chloride 113 H (98-107) mmol/L Carbon Dioxide 20 L (22-30) mmol/L BUN 29 H (7-17) mg/dL Creatinine 1.66 H (0.52-1.04) mg/dL Assessment and Plan (1) GI bleed Narrative/Plan: 79-year-old female with multiple prior admissions due to symptomatic anemia of acute blood loss. Presenting due to weakness and shortness of breath. Patient found to have an acute fall in hemoglobin to 6 on presentation. On recent hospitalization the patient had EGD with findings of multiple small bowel angiectasia treated with argon plasma coagulation therapy. EGD yesterday significant for multiple angiectasia in the small bowel treated with argon plasma coagulation therapy. Hemoglobin is stable. Current Visit: Yes Status: Acute Code(s): K92.2 - GASTROINTESTINAL HEMORRHAGE, UNSPECIFIED SNOMED Code(s): 83704735 (2) Anemia associated with acute blood loss Current Visit: Yes Status: Acute Code(s): D62 - ACUTE POSTHEMORRHAGIC ANEMIA SNOMED Code(s): 663193827 Plan: Supportive care Okay for diet Okay for diet Continue Protonix therapy Continue to monitor hemoglobin and hematocrit and transfuse as needed Okay for discharge when otherwise medically stable Thank you for allowing us to participate in the care of the patient,GI service will stand by, please call us back with any questions or concerns
[2019-10-14] MEDS: ATORVASTATIN 20 MG TAB PO SCH (20:45)
[2019-10-15 06:12] LABS: Anisocytosis Slight; HCT 26.8 % (34.0-46.0); HGB 8.3 gm/dL (11.4-16.0); Hypochromasia Marked; MCH 30.2 pg (25.0-35.0); MCV 97.5 fL (80.0-100.0); Macrocytosis Slight; Mean Platelet Volume 7.7; Platelet Count 361 k/uL (150-450); Poikilocytosis Slight; RBC 2.75 m/uL (3.80-5.40); RDW 16.2 % (11.5-15.5); WBC 6.6 k/uL (3.8-10.6)
[2019-10-15] MEDS: PANTOPRAZOLE 40 MG TABLET PO SCH (06:15)
[2019-10-15 06:32] LABS: ALT 10 U/L (4-34); AST 15 U/L (14-36); African American GFR (CKD) 29 (>60 ml/min/1.73 sqM); Albumin 3.3 g/dL (3.5-5.0); Alkaline Phosphatase 93 U/L (38-126); Anion Gap 5 mmol/L; Blood Urea Nitrogen 39 mg/dL (7-17); Calcium 8.6 mg/dL (8.4-10.2); Carbon Dioxide 21 mmol/L (22-30); Chloride 113 mmol/L (98-107); Glucose 88 mg/dL (74-99); Non-African American GFR(CKD) 25 (>60 ml/min/1.73 sqM); Potassium 4.7 mmol/L (3.5-5.1); Sodium 139 mmol/L (137-145); Total Bilirubin <0.1 mg/dL (0.2-1.3); Total Protein 5.8 g/dL (6.3-8.2)
[2019-10-15 06:57] LABS: Band Neutrophils % 1 %; Eosinophils # (M) 0.53 k/uL (0-0.7); Monocytes # (M) 0.53 k/uL (0-1.0); Neutrophils % (M) 77 %; Nucleated Red Blood Cells 0 /100 WBC (0-0); Total Cells Counted 100
[2019-10-15 06:58] LABS: Polychromasia Present
[2019-10-15 08:35] VITALS: BP 135/75; PULSE 59; RESP 20; TEMP 97.4
[2019-10-15] MEDS: ISOSORBIDE MONONITRATE ER 30 MG TAB.ER.24H PO SCH (08:47)
[2019-10-15] MEDS: ESCITALOPRAM 10 MG TAB PO SCH (08:47)
[2019-10-15] MEDS: METOPROLOL TARTRATE 25 MG TAB PO SCH (08:47)
[2019-10-15] MEDS: VENLAFAXINE HCL ER 150 MG CAP PO SCH (08:47)
[2019-10-15] MEDS ORDERED: LOSARTAN 50 MG TAB PO SCH (09:00)
--- NOTE | 2019-10-15 10:45 | P.PN ---
Subjective Progress Note Date: 10/15/19 This is an 79-year-old female patient with history of GI bleed, hypertension, renal disease, initially came to the hospital with symptoms of atypical chest pain and associated GI bleed. Endoscopy was performed which revealed multiple duodenal angiectasia in the second portion treated with plasma coagulation therapy, mild hiatal hernia. The patient was seen and examined this morning, she feels well, denies any chest discomfort, no difficulty in breathing. Echocardiogram with Doppler study was performed which revealed an ejection fraction of 55-60%. White blood cell count 6.6, hemoglobin 8.3, platelet count 361. Sodium 139, potassium 4.7, BUN 39, creatinine 1.8. Objective - Vital Signs Vital signs: Vital Signs Temp 97.4 F L 10/15/19 08:00 Pulse 59 L 10/15/19 08:00 Resp 20 10/15/19 08:00 BP 135/75 10/15/19 08:00 Pulse Ox 98 10/15/19 08:00 Intake & Output 10/14/19 10/15/19 10/15/19 18:59 06:59 18:59 Intake Total 180 240 240 Output Total 180 Balance 180 60 240 Weight 74.2 kg Intake: Oral 180 240 240 Output: Urine 180 Other: Voiding Method Toilet # Voids 1 # Bowel Movements 1 - Exam PHYSICAL EXAMINATION: HEENT: Head is atraumatic, normocephalic. Pupils equal, round. Neck is supple. There is no elevated jugular venous pressure. Hard of hearing. HEART EXAMINATION: Heart sounds regular, S1 and S2 normal. No murmur or gallop heard. CHEST EXAMINATION: Lungs are clear to auscultation. No chest wall tenderness is noted on palpation or with deep breathing. ABDOMEN: Soft, nontender. Bowel sounds are heard. No organomegaly noted. EXTREMITIES: 2+ peripheral pulses with no evidence of peripheral edema and no calf tenderness noted. NEUROLOGIC patient is awake, alert and oriented x3. - Labs CBC & Chem 7: 10/15/19 05:45 10/15/19 05:45 Labs: Abnormal Lab Results - Last 24 Hours (Table) 10/15/19 10/15/19 Range/Units 05:45 05:45 RBC 2.75 L (3.80-5.40) m/uL Hgb 8.3 L (11.4-16.0) gm/dL Hct 26.8 L (34.0-46.0) % RDW 16.2 H (11.5-15.5) % Lymphocytes # (Manual) 0.40 L (1.0-4.8) k/uL Chloride 113 H (98-107) mmol/L Carbon Dioxide 21 L (22-30) mmol/L BUN 39 H (7-17) mg/dL Creatinine 1.88 H (0.52-1.04) mg/dL Total Bilirubin <0.1 L (0.2-1.3) mg/dL Total Protein 5.8 L (6.3-8.2) g/dL Albumin 3.3 L (3.5-5.0) g/dL Assessment and Plan Plan: Assessment: 1 acute blood loss anemia secondary to GI bleeding, hemoglobin today 8.3. #2 chest heaviness with associated shortness of breath suggestive of demand ischemia secondary to anemia, no acute changes on EKG, troponins negative 3, #3 hypertension #4 chronic kidney disease with worsening BUN and creatinine today. Plan We will decrease the dose of losartan to 50 mg daily secondary to the elevated potassium and creatinine levels. From our perspective the patient may be able to be discharged home today, we'll make a follow-up appointment in the office post discharge. DNP note has been reviewed, I agree with a documented findings and plan of care. Patient was seen and examined.
--- NOTE | 2019-10-15 11:31 | P.DS ---
Providers Date of admission: 10/11/19 17:53 Expected date of discharge: 10/15/19 Attending physician: Naheed Velasquez Consults: 10/11/19 18:25 Consult Physician Urgent Consulting Provider: Armando Inman Consult Reason/Comments: chest pain Do you want consulting provider notified?: Yes Primary care physician: [facility] Course: This is an 79-year-old female patient of Dr. Cordon with past medical history of hypertension, chronic kidney disease stage III, restless leg syndrome, chronic anemia with iron infusions and blood transfusions in the past, chronic B12 deficiency anemia, recurrent depression, restless leg syndrome. Patient had recent hospitalization in September which time she was treated for acute blood loss anemia secondary to AVM status post transfusion of 2 units packed RBCs and status post EGD with argon plasma coagulation therapy. Patient states that she saw Dr. Cordon and was told that her blood count was low. She states she has been feeling weak. She also states she has black stools. No abdominal pain. No chest pain. Patient is extremely hard of hearing. Patient came into [facility] emergency center for evaluation. Patient was afebrile, heart rate in the 80s, blood pressure 111/68, pulse ox 97%. Hemoglobin is 6, BUN 29 creatinine 1.32, CO2 19, blood sugar 106. Liver function tests normal. Troponin negative. Coronavirus PCR not detected. Stool for occult blood positive. EKG sinus rhythm with no acute ST changes. KUB is nonobstructive bowel gas pattern. No pneumoperitoneum. Chest x-ray is stable with bibasilar strand-like atelectasis, possible underlying COPD and a large cardiomediastinal silhouette. This was compared to chest x-ray from September 23. Patient admitted to the cardiac stepdown unit, transfusion of 2 units packed RBCs with repeat hemoglobin 8.1. Cardiology consult and ordered Nitropaste 3 times daily, started atorvastatin and metoprolol 25 mg twice daily and hold antiplatelet medication. Echocardiogram reveals EF of 55-60%, mild mitral regurgitation, mild tricuspid regurgitation. GI is also on consult. 10/12: Hemoglobin is above 90 g since the initial transfusion, patient is scheduled for an EGD for possible AVM cauterization which will be done at 1:00 today, still hemodynamically stable, still nothing by mouth, we will advance diet recheck blood count the patient is stable without any further bleeding in the next 48 hours she'll be able to go home. 10/13: Patient hemoglobin still stable at 8.9 g no transfusion needed, she ended up going for EGD yesterday and found a few area of AVM were cauterized yesterday she is doing very well no sign of active bleed at this point, patient be seen GI today and probably advance her diet if she is doing well tomorrow can be disc harged home tomorrow to keep running CBC weekly from now on for the next 6 weeks. 10/14: Patient started a low fiber heart healthy diet yesterday and is tolerating. No nausea or vomiting. No diarrhea. She denies having any lightheadedness or dizziness. No abdominal pain. No chest pain. Hemoglobin today is 8.3, BUN 39 creatinine 1.88. Patient has been cleared for discharge by GI and cardiology. Patient will be discharged home today in stable condition. Discharge diagnoses: 1. Acute blood loss anemia most likely secondary to AVM status post transfusion of 2 units packed RBCs. 2. 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 3. Recent hospitalization for acute blood loss anemia secondary to AVM status post transfusion of 2 units of RBCs and EGD with argon plasma coagulation therapy. 3. Worsening dyspnea secondary to anemia. 4. Anginal symptoms secondary to anemia. 5. Chronic kidney disease stage III. 6. Hypertension. 7. Recurrent depression. 8. Restless leg syndrome. 9. Chronic arthralgia mostly osteoarthritis. 10. Chronic pain syndrome. Discharge plan: Home Impression and plan of care have been directed as dictated by the signing physician. Corina Phan nurse practitioner acting as scribe for signing physician. Patient Condition at Discharge: Good Plan - Discharge Summary Discharge Rx Participant: No New Discharge Prescriptions: New Isosorbide Mononitrate ER [Imdur] 30 mg PO DAILY #30 tab.er.24h Atorvastatin [Lipitor] 20 mg PO HS #30 tab Metoprolol Tartrate [Lopressor] 25 mg PO BID #60 tab Nitroglycerin Sl Tabs [Nitrostat] 0.4 mg SUBLINGUAL Q5M PRN #25 tab PRN Reason: Chest Pain Pantoprazole [Protonix] 40 mg PO BID-W/MEALS #60 tablet.dr Continue Vit C/E/Zn/Coppr/Lutein/Zeaxan [Preservision Areds 2 Softgel] 2 cap PO DAILY ALPRAZolam [Xanax] 0.25 mg PO HS PRN PRN Reason: Anxiety amLODIPine [Norvasc] 10 mg PO DAILY rOPINIRole HCL [Requip] 2 mg PO HS Venlafaxine HCl [Effexor XR] 150 mg PO BID Escitalopram [Lexapro] 10 mg PO DAILY Acetaminophen Tab [Tylenol] 1,000 mg PO Q6HR PRN PRN Reason: Pain Bisacodyl [Dulcolax] 5 mg PO DAILY #30 tablet.dr Changed Losartan Potassium 50 mg PO DAILY #0 Discontinued Hydrochlorothiazide 25 mg PO DAILY Omeprazole [PriLOSEC] 40 mg PO BID #60 cap Discharge Medication List Vit C/E/Zn/Coppr/Lutein/Zeaxan [Preservision Areds 2 Softgel] 2 cap PO DAILY 11/15/16 [History] ALPRAZolam [Xanax] 0.25 mg PO HS PRN 09/24/19 [History] Acetaminophen Tab [Tylenol] 1,000 mg PO Q6HR PRN 09/24/19 [History] Escitalopram [Lexapro] 10 mg PO DAILY 09/24/19 [History] Venlafaxine HCl [Effexor XR] 150 mg PO BID 09/24/19 [History] amLODIPine [Norvasc] 10 mg PO DAILY 09/24/19 [History] rOPINIRole HCL [Requip] 2 mg PO HS 09/24/19 [History] Bisacodyl [Dulcolax] 5 mg PO DAILY #30 tablet. 09/28/19 [Rx] Atorvastatin [Lipitor] 20 mg PO HS #30 tab 10/15/19 [Rx] Isosorbide Mononitrate ER [Imdur] 30 mg PO DAILY #30 tab.er.24h 10/15/19 [Rx] Losartan Potassium 50 mg PO DAILY #0 10/15/19 [Rx] Metoprolol Tartrate [Lopressor] 25 mg PO BID #60 tab 10/15/19 [Rx] Nitroglycerin Sl Tabs [Nitrostat] 0.4 mg SUBLINGUAL Q5M PRN #25 tab 10/15/19 [Rx] Pantoprazole [Protonix] 40 mg PO BID-W/MEALS #60 tablet. 10/15/19 [Rx] Follow up Appointment(s)/Referral(s): Carey Parisi MD [STAFF PHYSICIAN] - 2 Weeks (office will call with appointment time) Ezio Cordon MD [Primary Care Provider] - 10/18/19 9:45 am (Blood work in the office) Zen Estrada MD [STAFF PHYSICIAN] - 11/01/19 1:00 pm (come 15 minutes early, bring license, insurance cards and mask) Patient Instructions/Handouts: Angina (DC), Gastrointestinal Bleeding (DC) Discharge Disposition: HOME SELF-CARE
[2019-10-15] MEDS: amLODIPine 10 MG TAB PO SCH (11:32)
== END 2019-10-15 11:38 | disposition home or self-care (01) | DRG 378 ==
LOC: EC 14:22 → 3SCARD 17:53
PROVIDERS: ADMIT Family Medicine; ATTEND Family Medicine
PROC: 30233N1 Transfusion of Nonautologous Red Blood Cells into Peripheral Vein, Percutaneous Approach (ICD-10-PCS; 2019-10-11)
PROC: 0W3P8ZZ Control Bleeding in Gastrointestinal Tract, Via Natural or Artificial Opening Endoscopic (ICD-10-PCS; principal; 2019-10-13 13:35)
DX: K31.811 Angiodysplasia of stomach and duodenum with bleeding (principal); I24.8 Other forms of acute ischemic heart disease; Q60.0 Renal agenesis, unilateral; J98.11 Atelectasis; D62 Acute posthemorrhagic anemia; F33.9 Major depressive disorder, recurrent, unspecified; K44.9 Diaphragmatic hernia without obstruction or gangrene; I12.9 Hypertensive chronic kidney disease with stage 1 through stage 4 chronic kidney disease, or unspecified chronic kidney disease; N18.3 Chronic kidney disease, stage 3 (moderate); Z87.891 Personal history of nicotine dependence; K46.9 Unspecified abdominal hernia without obstruction or gangrene; D51.9 Vitamin B12 deficiency anemia, unspecified; G25.81 Restless legs syndrome; G89.4 Chronic pain syndrome; I08.1 Rheumatic disorders of both mitral and tricuspid valves; H91.90 Unspecified hearing loss, unspecified ear; K57.90 Diverticulosis of intestine, part unspecified, without perforation or abscess without bleeding; M19.90 Unspecified osteoarthritis, unspecified site; Z11.59 Encounter for screening for other viral diseases; Z79.899 Other long term (current) drug therapy; Z90.49 Acquired absence of other specified parts of digestive tract; Z87.820 Personal history of traumatic brain injury; Z86.79 Personal history of other diseases of the circulatory system; Z91.81 History of falling
CPT/HCPCS: 36415; 36430; 43270; 71046; 74018; 80053; 80061; 82272; 83735; 84484; 85025; 85027; 85610; 85730; 86850; 86900; 86901; 86920; 87635; 93005; 93306; 96374; 99285

== ENCOUNTER 2020-04-26 17:30 | Emergency (ER) | payer MEDICARE, BC ==
--- NOTE | 2020-04-26 18:25 | CT ---
EXAMINATION TYPE: CT brain cspine wo con DATE OF EXAM: 04/26/2020 COMPARISON: 11/15/2015. HISTORY: Head and neck pain/injury status post fall. CT DLP: 1329.8 mGycm Automated exposure control for dose reduction was used. TECHNIQUE: CT scan of the head and cervical spine are performed without contrast. FINDINGS: There is no acute intracranial hemorrhage, mass effect, or midline shift identified. The ventricles and sulci are within normal limits in size. The globes are intact are clear. There is mi ld white matter disease and parenchymal volume loss. The paranasal sinuses demonstrate moderate mucos al thickening of the left maxillary sinus. Right frontal borehole is again seen. Otherwise no acute o sseous abnormality. Cervical spine is visualized in its entirety from C1 through upper thoracic levels and demonstrates s atisfactory alignment without evidence of acute fracture or dislocation. Prevertebral soft tissue ap pears within normal limits. The C1-C2 articulation is unremarkable. There is moderate cervical spon dylosis. IMPRESSION: 1. There is no acute fracture or dislocation evident in the cervical spine. 2. No acute intracranial hemorrhage, mass effect, or midline shift is seen.
[2020-04-26] MEDS ORDERED: LIDOCAINE 1% INJ 10MG/ML (20 ML MDV) SQ ONE ×2 (18:37→18:43)
[2020-04-26 18:53] LABS: INR 0.9 (<1.2); Prothrombin Time 9.6 sec (9.0-12.0)
[2020-04-26 18:58] LABS: HCT 35.5 % (34.0-46.0); HGB 10.9 gm/dL (11.4-16.0); Hypochromasia Moderate; MCH 29.3 pg (25.0-35.0); MCHC 30.6 g/dL (31.0-37.0); MCV 95.6 fL (80.0-100.0); Mean Platelet Volume 8.1; Platelet Count 291 k/uL (150-450); RBC 3.72 m/uL (3.80-5.40); RDW 15.8 % (11.5-15.5); WBC 8.1 k/uL (3.8-10.6)
[2020-04-26 18:59] LABS: Albumin 3.9 g/dL (3.5-5.0); Calcium 9.5 mg/dL (8.4-10.2); Potassium 5.3 mmol/L (3.5-5.1); Total Bilirubin 0.3 mg/dL (0.2-1.3); Total Protein 6.7 g/dL (6.3-8.2)
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
[2020-04-26 19:17] LABS: Eosinophils # (M) 1.22 k/uL (0-0.7); Lymphocytes # (M) 0.32 k/uL (1.0-4.8); Monocytes # (M) 0.65 k/uL (0-1.0); Neutrophils # (M) 5.91 k/uL (1.3-7.7); Neutrophils % (M) 73 %; Nucleated Red Blood Cells 0 /100 WBC (0-0); Total Cells Counted 100
[2020-04-26 19:29] VITALS: BP 137/72; PULSE 61; RESP 16; TEMP 97.8
--- NOTE | 2020-04-28 07:15 | CDI ---
Documentation Clarification Request Dear Naz Guzman PA-C> Please do addendum to ED document with details/ procedure note to describe laceration repair. Need length of repair, depth of repair, type of sutures. Medical Decision Making Section only says laceration repaired. Thank you, Mile Ambriz, Flooring Grader If you have any questions, please contact Supervisor Picking Crew at [phone] [facility]
--- NOTE | 2020-05-15 14:45 | ED ---
Medical Decision Making - Medical Decision Making verbal consent obtained from patient and patient family-2cm laceration was repaired using 5, 6.0 nylon sutures simple interrupted after local anesthetic applied SQ lidocaine 1% 1mL. patient tolerated procedure well, no complications minimal pain/blood loss. - Lab Data Result diagrams: 04/26/20 18:20 04/26/20 18:20 Lab Results 04/26/20 04/26/20 04/26/20 Range/Units 18:20 18:20 18:20 WBC 8.1 (3.8-10.6) k/uL RBC 3.72 L (3.80-5.40) m/uL Hgb 10.9 L (11.4-16.0) gm/dL Hct 35.5 (34.0-46.0) % MCV 95.6 (80.0-100.0) fL MCH 29.3 (25.0-35.0) pg MCHC 30.6 L (31.0-37.0) g/dL RDW 15.8 H (11.5-15.5) % Plt Count 291 (150-450) k/uL MPV 8.1 Neutrophils % (Manual) 73 % Lymphocytes % (Manual) 4 % Monocytes % (Manual) 8 % Eosinophils % (Manual) 15 % Neutrophils # (Manual) 5.91 (1.3-7.7) k/uL Lymphocytes # (Manual) 0.32 L (1.0-4.8) k/uL Monocytes # (Manual) 0.65 (0-1.0) k/uL Eosinophils # (Manual) 1.22 H (0-0.7) k/uL Nucleated RBCs 0 (0-0) /100 WBC Manual Slide Review Performed Hypochromasia Moderate PT 9.6 (9.0-12.0) sec INR 0.9 (<1.2) APTT 23.0 (22.0-30.0) sec Sodium 143 (137-145) mmol/L Potassium 5.3 H (3.5-5.1) mmol/L Chloride 113 H (98-107) mmol/L Carbon Dioxide 25 (22-30) mmol/L Anion Gap 5 mmol/L BUN 30 H (7-17) mg/dL Creatinine 1.71 H (0.52-1.04) mg/dL Est GFR (CKD-EPI)AfAm 32 (>60 ml/min/1.73 sqM) Est GFR (CKD-EPI)NonAf 28 (>60 ml/min/1.73 sqM) Glucose 107 H (74-99) mg/dL Calcium 9.5 (8.4-10.2) mg/dL Total Bilirubin 0.3 (0.2-1.3) mg/dL AST 14 (14-36) U/L ALT 7 (4-34) U/L Alkaline Phosphatase 97 (38-126) U/L Troponin I (0.000-0.034) ng/mL Total Protein 6.7 (6.3-8.2) g/dL Albumin 3.9 (3.5-5.0) g/dL 04/26/ Range/Units 18:20 WBC (3.8-10.6) k/uL RBC (3.80-5.40) m/uL Hgb (11.4-16.0) gm/dL Hct (34.0-46.0) % MCV (80.0-100.0) fL MCH (25.0-35.0) pg MCHC (31.0-37.0) g/dL RDW (11.5-15.5) % Plt Count (150-450) k/uL MPV Neutrophils % (Manual) % Lymphocytes % (Manual) % Monocytes % (Manual) % Eosinophils % (Manual) % Neutrophils # (Manual) (1.3-7.7) k/uL Lymphocytes # (Manual) (1.0-4.8) k/uL Monocytes # (Manual) (0-1.0) k/uL Eosinophils # (Manual) (0-0.7) k/uL Nucleated RBCs (0-0) /100 WBC Manual Slide Review Hypochromasia PT (9.0-12.0) sec INR (<1.2) APTT (22.0-30.0) sec Sodium (137-145) mmol/L Potassium (3.5-5.1) mmol/L Chloride (98-107) mmol/L Carbon Dioxide (22-30) mmol/L Anion Gap mmol/L BUN (7-17) mg/dL Creatinine (0.52-1.04) mg/dL Est GFR (CKD-EPI)AfAm (>60 ml/min/1.73 sqM) Est GFR (CKD-EPI)NonAf (>60 ml/min/1.73 sqM) Glucose (74-99) mg/dL Calcium (8.4-10.2) mg/dL Total Bilirubin (0.2-1.3) mg/dL AST (14-36) U/L ALT (4-34) U/L Alkaline Phosphatase (38-126) U/L Troponin I <0.012 (0.000-0.034) ng/mL Total Protein (6.3-8.2) g/dL Albumin (3.5-5.0) g/dL Disposition Clinical Impression: Laceration, Fall, Facial laceration Disposition: HOME SELF-CARE Condition: Good Instructions (If sedation given, give patient instructions): Care For Your Stitches (ED), Fall Prevention for Older Adults (ED), Facial Laceration (ED) Additional Instructions: Please use medication as discussed. Please follow-up with family doctor in the next 2 days. Return for suture removal for the next 5-7 days. Please return to emergency room if the symptoms increase or worsen or for any other concerns. Is patient prescribed a controlled substance at d/c from ED?: No Referrals: Ezio Cordon MD [Primary Care Provider] - 1-2 days
== END 2020-04-26 19:25 | disposition home or self-care (01) ==
LOC: EC 17:30
DX: S01.81XA Laceration without foreign body of other part of head, initial encounter (principal); S01.01XA Laceration without foreign body of scalp, initial encounter; I10 Essential (primary) hypertension; K21.9 Gastro-esophageal reflux disease without esophagitis; F32.9 Major depressive disorder, single episode, unspecified; H91.90 Unspecified hearing loss, unspecified ear; Z79.899 Other long term (current) drug therapy; W18.30XA Fall on same level, unspecified, initial encounter; Y92.009 Unspecified place in unspecified non-institutional (private) residence as the place of occurrence of the external cause
CPT/HCPCS: 36415; 93005; 80053; 84484; 85025; 85610; 85730; 72125; 70450; 99284; 12011; J2001

== ENCOUNTER → 2020-09-19 | Outpatient (CLI) | payer MEDICARE, BC ==
--- NOTE | 2020-09-21 18:59 | XR ---
EXAMINATION TYPE: XR chest 2V DATE OF EXAM: 09/19/2020 COMPARISON: 10/11/2019 HISTORY: 80 year-old female Z11.1, screening for respiratory TB. TECHNIQUE: Frontal and lateral views FINDINGS: The heart is upper limits of normal in size. Mild atherosclerotic arch calcifications. Mild interstit ial prominence. The mild patchy left basilar opacity. No consolidation or pleural effusion. IMPRESSION: Borderline heart size and chronic appearing changes. There is some mild patchy density at the left ba se that could represent atelectasis or early infiltrate. Correlate with patient's symptoms.
== END | disposition home or self-care (01) ==
LOC: RADXRMAIN 13:18
PROVIDERS: ATTEND Internal Medicine Geriatric Medicine
DX: Z11.1 Encounter for screening for respiratory tuberculosis (principal); R91.8 Other nonspecific abnormal finding of lung field
CPT/HCPCS: 71046

== ENCOUNTER → 2020-11-06 | Outpatient (CLI) | payer MEDICARE, BC ==
--- NOTE | 2020-11-07 07:55 | US ---
EXAMINATION TYPE: US kidneys/renal and bladder DATE OF EXAM: 11/06/2020 COMPARISON: CT 09/20/19 CLINICAL HISTORY: N18.30 KIDNEY DISEASE STAGE 3. EXAM MEASUREMENTS: Right Kidney: Atrophic and not seen. Left Kidney: 10.1 x 5.9 x 4.7 cm Post Void Residual Volume: Not calculated. Bladder not fully distended Right Kidney: atrophic and not seen. Left Kidney: Mid pole cyst = 1.3 x 1.2 x 0.9 cm, lobular shape, difficult to visualize due to positio nerissa and overlying bowel gas. Bladder: wnl Bilateral Jets seen: Not at this time The right kidney is atrophic and not visualized. The left kidney is difficult to visualize due to pos itioning and overlying bowel gas. There is an interpolar cyst measuring 1.3 cm. IMPRESSION: 1. The right kidney is atrophic and not visualized on this study. 2. The left kidney is poorly visualized. No hydronephrosis or shadowing calculi are seen. There is a 1.3 cm interpolar left renal cyst. 3. The bilateral ureteral jets are not visualized.
== END | disposition home or self-care (01) ==
LOC: RADUSWWP 15:28
PROVIDERS: ATTEND Internal Medicine Geriatric Medicine
DX: N18.30 Chronic kidney disease, stage 3 unspecified (principal); N28.1 Cyst of kidney, acquired
CPT/HCPCS: 76770

== ENCOUNTER 2020-11-10 17:11 | Inpatient (IN) | payer MEDICARE, BC ==
[2020-11-12 14:57] VITALS: BMI 26.2
[2020-11-13 20:45] VITALS: RESP 16
[2020-11-14 12:06] VITALS: BP 162/68; PULSE 74; TEMP 97.7
== END 2020-11-14 15:11 | disposition home or self-care (01) | DRG 392 ==
LOC: EC 17:11 → EEVIPCON 19:34 → 5NMEDONC 19:34
PROVIDERS: ADMIT Internal Medicine Geriatric Medicine; ATTEND Internal Medicine Geriatric Medicine
PROC: 30233N1 Transfusion of Nonautologous Red Blood Cells into Peripheral Vein, Percutaneous Approach (ICD-10-PCS; 2020-11-10)
PROC: 0D598ZZ Destruction of Duodenum, Via Natural or Artificial Opening Endoscopic (ICD-10-PCS; principal; 2020-11-12)
PROC: 0W3P8ZZ Control Bleeding in Gastrointestinal Tract, Via Natural or Artificial Opening Endoscopic (ICD-10-PCS; 2020-11-12)
DX: K31.819 Angiodysplasia of stomach and duodenum without bleeding (principal); K92.2 Gastrointestinal hemorrhage, unspecified; N17.9 Acute kidney failure, unspecified; I13.0 Hypertensive heart and chronic kidney disease with heart failure and stage 1 through stage 4 chronic kidney disease, or unspecified chronic kidney disease; F33.2 Major depressive disorder, recurrent severe without psychotic features; D62 Acute posthemorrhagic anemia; N39.0 Urinary tract infection, site not specified; E87.2 Acidosis; I50.30 Unspecified diastolic (congestive) heart failure; Z20.822 Contact with and (suspected) exposure to COVID-19; K55.20 Angiodysplasia of colon without hemorrhage; D50.9 Iron deficiency anemia, unspecified; D46.9 Myelodysplastic syndrome, unspecified; N18.30 Chronic kidney disease, stage 3 unspecified; G25.81 Restless legs syndrome; Z87.891 Personal history of nicotine dependence; K21.9 Gastro-esophageal reflux disease without esophagitis; K46.9 Unspecified abdominal hernia without obstruction or gangrene; D51.8 Other vitamin B12 deficiency anemias; E78.5 Hyperlipidemia, unspecified; E87.5 Hyperkalemia; F41.1 Generalized anxiety disorder; H91.90 Unspecified hearing loss, unspecified ear; I25.10 Atherosclerotic heart disease of native coronary artery without angina pectoris
CPT/HCPCS: 36415; 43255; 80048; 80053; 81001; 83540; 83550; 83735; 85025; 85027; 85610; 85730; 86850; 86900; 86901; 86920; 87077; 87086; 87186; 87635; 93005; 94760; 99285

== ENCOUNTER 2020-12-18 13:06 | Inpatient (IN) | payer MEDICARE, BC ==
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
[2020-12-18 13:50] LABS: Hypochromasia Marked; MCH 29.1 pg (25.0-35.0); MCHC 29.9 g/dL (31.0-37.0); MCV 97.1 fL (80.0-100.0); Mean Platelet Volume 7.6; Platelet Count 357 k/uL (150-450); Poikilocytosis Slight; RBC 1.91 m/uL (3.80-5.40); RDW 15.9 % (11.5-15.5); WBC 6.9 k/uL (3.8-10.6)
[2020-12-18 14:00] LABS: INR 0.9 (<1.2); Partial Thromboplastin Time 22.4 sec (22.0-30.0); Prothrombin Time 9.6 sec (9.0-12.0)
--- NOTE | 2020-12-18 14:02 | XR ---
EXAMINATION TYPE: XR chest 2V DATE OF EXAM: 12/18/2020 COMPARISON: 09/19/2020 HISTORY: Weakness TECHNIQUE: Frontal and lateral views of the chest are obtained. FINDINGS: There is no focal air space opacity, pleural effusion, or pneumothorax seen. The cardiac silhouette size is within normal limits. The osseous structures are intact. IMPRESSION: No acute cardiopulmonary process.
[2020-12-18 14:07] LABS: Appearance,Urine Cloudy (Clear); Bacteria,Urine Occasional /hpf; Bilirubin,Urine Negative (Negative); Blood,Urine Negative (Negative); Color,Urine Light Yellow; Glucose,Urine (UA) Negative (Negative); Hyaline Casts,Urine 1 /lpf (0-2); Ketones,Urine Negative (Negative); Leukocyte Esterase,Urine Large (Negative); Mucus,Urine Rare /hpf; Nitrite,Urine Positive (Negative); PH, Urine 5.5 (5.0-8.0); Protein,Urine Negative (Negative); RBC,Urine 4 /hpf (0-5); Specific Gravity,Urine 1.013 (1.001-1.035); Squamous Epithelial Cell,Urine 8 /hpf (0-4); Urobilinogen,Urine <2.0 mg/dL (<2.0); WBC,Urine 117 /hpf (0-5)
[2020-12-18 14:11] LABS: ALT 11 U/L (4-34); AST 15 U/L (14-36); African American GFR (CKD) 26 (>60 ml/min/1.73 sqM); Albumin 3.1 g/dL (3.5-5.0); Alkaline Phosphatase 65 U/L (38-126); Anion Gap 8 mmol/L; Blood Urea Nitrogen 67 mg/dL (7-17); Calcium 8.6 mg/dL (8.4-10.2); Carbon Dioxide 18 mmol/L (22-30); Chloride 113 mmol/L (98-107); Glucose 117 mg/dL (74-99); Magnesium 2.4 mg/dL (1.6-2.3); Non-African American GFR(CKD) 23 (>60 ml/min/1.73 sqM); Potassium 5.2 mmol/L (3.5-5.1); Sodium 139 mmol/L (137-145); Total Bilirubin <0.1 mg/dL (0.2-1.3); Total Protein 5.4 g/dL (6.3-8.2)
[2020-12-18 14:13] LABS: HCT 18.6 % (34.0-46.0); HGB 5.6 gm/dL (11.4-16.0)
[2020-12-18] MEDS ORDERED: PANTOPRAZOLE 40 MG/10 ML VIAL IVP STA (14:15)
[2020-12-18] MEDS ORDERED: NALOXONE 0.4 MG/ML 1 ML VIAL IV PRN (14:28)
[2020-12-18] MEDS ORDERED: cefTRIAXone IN SWFI 1,000 MG/10 ML SYRINGE IVP STA (14:28)
[2020-12-18 14:42] LABS: Band Neutrophils % 2 %; Eosinophils # (M) 0.48 k/uL (0-0.7); Monocytes # (M) 0.35 k/uL (0-1.0); Neutrophils % (M) 73 %; Nucleated Red Blood Cells 0 /100 WBC (0-0); Polychromasia Present; Total Cells Counted 100
[2020-12-18 14:43] LABS: Hypochromasia (M) Present
[2020-12-18] MEDS ORDERED: ACETAMINOPHEN TAB 325 MG TAB PO PRN (17:54)
[2020-12-18] MEDS ORDERED: DICYCLOMINE 20 MG TAB PO PRN (17:54)
[2020-12-18] MEDS: SODIUM CHLORIDE 0.9% 1,000 ML IV SCH ×2 (18:37→21:20)
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
[2020-12-18] MEDS: MELATONIN 5 MG TABLET PO SCH (20:24)
[2020-12-18] MEDS: ALPRAZolam 0.5 MG TAB PO SCH (20:24)
[2020-12-18] MEDS: PANTOPRAZOLE 40 MG/10 ML VIAL IVP SCH (20:24)
[2020-12-18 20:47] LABS: LDH 1137 U/L (313-618)
[2020-12-18 23:42] LABS: Anisocytosis Slight; HCT 24.7 % (34.0-46.0); Hypochromasia Marked; MCH 27.9 pg (25.0-35.0); MCHC 30.5 g/dL (31.0-37.0); Mean Platelet Volume 7.3; Platelet Count 286 k/uL (150-450); Poikilocytosis Slight; RBC 2.71 m/uL (3.80-5.40); RDW 17.4 % (11.5-15.5); WBC 5.4 k/uL (3.8-10.6)
[2020-12-18 23:48] LABS: INR 0.9 (<1.2); Partial Thromboplastin Time 23.4 sec (22.0-30.0)
[2020-12-18 23:55] LABS: HGB 7.6 gm/dL (11.4-16.0); MCV 91.2 fL (80.0-100.0)
[2020-12-19 00:23] LABS: Anisocytosis (M) Present; Basophils # (M) 0.05 k/uL (0-0.2); Eosinophils # (M) 0.49 k/uL (0-0.7); Monocytes # (M) 0.16 k/uL (0-1.0); Neutrophils % (M) 74 %; Nucleated Red Blood Cells 0 /100 WBC (0-0); Polychromasia Present; Total Cells Counted 100
[2020-12-19] MEDS: ACETAMINOPHEN TAB 325 MG TAB PO PRN ×2 (04:09→16:18)
[2020-12-19 04:44] LABS: Folate, Serum 6.3 ng/mL
[2020-12-19 05:22] LABS: % Iron Saturation 5.69 (12.00-45.00); Ferritin 15.4 ng/mL (10.0-291.0); Iron 19 ug/dL (50-170); Rheumatoid Factor, Qnt <4 IU/mL (0-15); Total Iron Binding Capacity 334 ug/dL (228-460)
[2020-12-19] MEDS: SODIUM CHLORIDE 0.9% 1,000 ML IV SCH ×4 (06:10→21:02)
[2020-12-19] MEDS: CITALOPRAM HYDROBROMIDE 20 MG TAB PO SCH (08:03)
[2020-12-19] MEDS: ALPRAZolam 0.25 MG TAB PO SCH (08:03)
[2020-12-19] MEDS: amLODIPine 10 MG TAB PO SCH (08:04)
[2020-12-19] MEDS: polyethylene glycoL 3350 17 GM POWD.PACK PO SCH (08:04)
[2020-12-19] MEDS: PANTOPRAZOLE 40 MG/10 ML VIAL IVP SCH ×2 (08:04→21:01)
[2020-12-19] MEDS: VIT A,C & E-LUTEIN-MINERALS 1 EACH TAB PO SCH (08:04)
[2020-12-19] MEDS: ISOSORBIDE DINITRATE 10 MG TAB PO SCH (08:04)
[2020-12-19] MEDS: DULoxetine HCL 20 MG CAPSULE.DR PO SCH (08:04)
[2020-12-19] MEDS: SODIUM FERRIC GLUCONAT-SUCROSE 125 MG in SODIUM CHLORIDE 0.9% 100 ML IVPB SCH (09:09)
--- NOTE | 2020-12-19 09:10 | P.PN ---
Subjective Progress Note Date: 12/19/20 Principal diagnosis: Symptomatic Anemia hemoglobin improved after transfusion Objective - Vital Signs Vital signs: Vital Signs Temp 97.9 F 12/19/20 08:00 Pulse 61 12/19/20 08:00 Resp 16 12/19/20 08:00 BP 124/59 12/19/20 08:00 Pulse Ox 96 12/19/20 08:00 Intake & Output 12/18/20 12/19/20 12/19/20 18:59 06:59 18:59 Intake Total 310 310 120 Balance 310 310 120 Weight 68.492 kg 67.4 kg Intake: Oral 120 Blood Product 310 310 Rc As-1 Unit 310 [id number] Rc Cpda-1 Unit 0 310 [id number] Other: Voiding Method Toilet # Voids 1 1 - Exam - Constitutional General appearance: cooperative - EENT Eyes: EOMI, poor dentition ENT: hard of hearing, NA/AT - Neck Neck: normal ROM - Respiratory Respiratory: bilateral: CTA - Cardiovascular Rhythm: regularly irregular - Gastrointestinal General gastrointestinal: normal bowel sounds, soft - Integumentary Integumentary: pale - Neurologic Neurologic: CNII-XII intact - Musculoskeletal Musculoskeletal: generalized weakness - Psychiatric Psychiatric: A&O x's 3, appropriate affect, intact judgment & insight - Labs CBC & Chem 7: 12/19/20 08:03 12/19/20 08:03 Labs: Abnormal Lab Results - Last 24 Hours (Table) 12/18/20 12/18/20 12/18/20 Range/Units 13:21 13:21 13:21 RBC 1.91 L (3.80-5.40) m/uL Hgb 5.6 L* D (11.4-16.0) gm/dL Hct 18.6 L* (34.0-46.0) % MCHC 29.9 L (31.0-37.0) g/dL RDW 15.9 H (11.5-15.5) % Lymphocytes # (Manual) 0.90 L (1.0-4.8) k/uL Retic Count (0.5-2.0) % Potassium 5.2 H (3.5-5.1) mmol/L Chloride 113 H (98-107) mmol/L Carbon Dioxide 18 L (22-30) mmol/L BUN 67 H (7-17) mg/dL Creatinine 1.99 H (0.52-1.04) mg/dL Glucose 117 H (74-99) mg/dL Magnesium 2.4 H (1.6-2.3) mg/dL Iron (50-170) ug/dL % Saturation (12.00-45.00) Total Bilirubin <0.1 L (0.2-1.3) mg/dL Lactate Dehydrogenase (313-618) U/L Total Protein 5.4 L (6.3-8.2) g/dL Total Protein (PEP) (6.2-8.2) g/dL Albumin 3.1 L (3.5-5.0) g/dL Vitamin B12 984.0 H (200.0-944.0) pg/mL Urine Appearance (Clear) Urine Nitrite (Negative) Ur Leukocyte Esterase (Negative) Urine WBC (0-5) /hpf Ur Squamous Epith Cells (0-4) /hpf Urine Bacteria (None) /hpf Urine Mucus (None) /hpf Crossmatch 12/18/20 12/18/20 12/18/20 Range/Units 13:21 13:30 13:51 RBC (3.80-5.40) m/uL Hgb (11.4-16.0) gm/dL Hct (34.0-46.0) % MCHC (31.0-37.0) g/dL RDW (11.5-15.5) % Lymphocytes # (Manual) (1.0-4.8) k/uL Retic Count (0.5-2.0) % Potassium (3.5-5.1) mmol/L Chloride (98-107) mmol/L Carbon Dioxide (22-30) mmol/L BUN (7-17) mg/dL Creatinine (0.52-1.04) mg/dL Glucose (74-99) mg/dL Magnesium (1.6-2.3) mg/dL Iron 19 L (50-170) ug/dL % Saturation 5.69 L (12.00-45.00) Total Bilirubin (0.2-1.3) mg/dL Lactate Dehydrogenase 1137 H (313-618) U/L Total Protein (6.3-8.2) g/dL Total Protein (PEP) (6.2-8.2) g/dL Albumin (3.5-5.0) g/dL Vitamin B12 (200.0-944.0) pg/mL Urine Appearance Cloudy H (Clear) Urine Nitrite Positive H (Negative) Ur Leukocyte Esterase Large H (Negative) Urine WBC 117 H (0-5) /hpf Ur Squamous Epith Cells 8 H (0-4) /hpf Urine Bacteria Occasional H (None) /hpf Urine Mucus Rare H (None) /hpf Crossmatch See Detail 12/18/20 12/18/20 12/18/20 Range/Units 23:11 23:11 23:11 RBC 2.71 L (3.80-5.40) m/uL Hgb 7.6 L D (11.4-16.0) gm/dL Hct 24.7 L (34.0-46.0) % MCHC 30.5 L (31.0-37.0) g/dL RDW 17.4 H (11.5-15.5) % Lymphocytes # (Manual) 0.70 L (1.0-4.8) k/uL Retic Count 5.0 H (0.5-2.0) % Potassium (3.5-5.1) mmol/L Chloride (98-107) mmol/L Carbon Dioxide (22-30) mmol/L BUN (7-17) mg/dL Creatinine (0.52-1.04) mg/dL Glucose (74-99) mg/dL Magnesium (1.6-2.3) mg/dL Iron (50-170) ug/dL % Saturation (12.00-45.00) Total Bilirubin (0.2-1.3) mg/dL Lactate Dehydrogenase (313-618) U/L Total Protein (6.3-8.2) g/dL Total Protein (PEP) 5.0 L (6.2-8.2) g/dL Albumin (3.5-5.0) g/dL Vitamin B12 (200.0-944.0) pg/mL Urine Appearance (Clear) Urine Nitrite (Negative) Ur Leukocyte Esterase (Negative) Urine WBC (0-5) /hpf Ur Squamous Epith Cells (0-4) /hpf Urine Bacteria (None) /hpf Urine Mucus (None) /hpf Crossmatch Microbiology - Last 24 Hours (Table) 12/18/20 13:51 Urine Culture - Preliminary Urine,Clean Catch Assessment and Plan (1) B12 deficiency anemia Current Visit: Yes Status: Acute Code(s): D51.9 - VITAMIN B12 DEFICIENCY ANEMIA, UNSPECIFIED SNOMED Code(s): 51482972 (2) AVM (arteriovenous malformation) of colon Current Visit: Yes Status: Acute Code(s): K55.20 - ANGIODYSPLASIA OF COLON WITHOUT HEMORRHAGE SNOMED Code(s): 735670703 (3) Anemia Current Visit: Yes Status: Acute Code(s): D64.9 - ANEMIA, UNSPECIFIED SNOMED Code(s): 180996698 (4) JEROME (acute kidney injury) Current Visit: No Status: Acute Code(s): N17.9 - ACUTE KIDNEY FAILURE, UNSPECIFIED SNOMED Code(s): 84226766 (5) Iron deficiency anemia Current Visit: No Status: Acute Code(s): D50.9 - IRON DEFICIENCY ANEMIA, UNS PECIFIED SNOMED Code(s): 25489394 Plan: Assessment and Recommendations: Acute on Chronic Microcytic anemia: - Secondary to Iron and B12 deficiency - Coagulate AVMs Status POst EGD in November with GI, GI to evaluate further this admission - PRBC today and will proceed with Parental Iron this admission. She is being treated for suspected UTI, however no signs of sepsis therefore continuing with IV iron benefit outweighs risk - Other potential contributing factors could be related to renal insufficiency (appears to have chronic kidney disease (unknown stage) and has been a few years since full anemia work-up for monoclonal proteins, will re-evaluate this admission - Daily CBC - Repeat Anemia Work-up PRIOR to PRBC transfusion for accuracy - Further anemia work-up with other abnormal findings of worsening and long standing renal function decreased. - Parental Iron after transfusion if no sign of sepsis Physician Attest: I have completed the full history and physical and agree with above dictation Dictated as a scribe. woody
[2020-12-19 09:18] LABS: Anisocytosis Slight; HCT 26.5 % (34.0-46.0); HGB 8.1 gm/dL (11.4-16.0); Hypochromasia Marked; MCH 28.4 pg (25.0-35.0); MCHC 30.6 g/dL (31.0-37.0); MCV 92.7 fL (80.0-100.0); Mean Platelet Volume 7.5; Platelet Count 294 k/uL (150-450); Poikilocytosis Slight; RBC 2.86 m/uL (3.80-5.40); RDW 17.4 % (11.5-15.5); WBC 5.5 k/uL (3.8-10.6)
[2020-12-19 09:46] LABS: Calcium 8.8 mg/dL (8.4-10.2); Potassium 4.7 mmol/L (3.5-5.1); Total Bilirubin 0.1 mg/dL (0.2-1.3); Total Protein 5.2 g/dL (6.3-8.2)
[2020-12-19 12:04] LABS: Eosinophils # (M) 0.72 k/uL (0-0.7); Monocytes # (M) 0.55 k/uL (0-1.0); Neutrophils % (M) 69 %; Nucleated Red Blood Cells 0 /100 WBC (0-0); Total Cells Counted 200
[2020-12-19 12:10] LABS: Polychromasia Present
[2020-12-19 14:40] LABS: Immunoglobulin A 67.2 mg/dL (60.0-350.0); Immunoglobulin M 82.1 mg/dL (40.0-280.0)
[2020-12-19 14:42] LABS: Free Kappa Lt Chain Qnt, Serum 4.65 mg/dL (0.33-1.94)
[2020-12-19] MEDS: ALPRAZolam 0.5 MG TAB PO SCH (21:00)
[2020-12-19] MEDS: MELATONIN 5 MG TABLET PO SCH (21:00)
[2020-12-20] MEDS: ALPRAZolam 0.25 MG TAB PO SCH (08:11)
[2020-12-20] MEDS: amLODIPine 10 MG TAB PO SCH (08:11)
[2020-12-20] MEDS: CITALOPRAM HYDROBROMIDE 20 MG TAB PO SCH (08:11)
[2020-12-20] MEDS: polyethylene glycoL 3350 17 GM POWD.PACK PO SCH (08:13)
[2020-12-20] MEDS: PANTOPRAZOLE 40 MG/10 ML VIAL IVP SCH ×2 (08:14→20:57)
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
[2020-12-20] MEDS: VIT A,C & E-LUTEIN-MINERALS 1 EACH TAB PO SCH (09:54)
[2020-12-20] MEDS: DULoxetine HCL 20 MG CAPSULE.DR PO SCH (09:54)
[2020-12-20] MEDS: ISOSORBIDE DINITRATE 10 MG TAB PO SCH (09:55)
[2020-12-20] MEDS: SODIUM FERRIC GLUCONAT-SUCROSE 125 MG in SODIUM CHLORIDE 0.9% 100 ML IVPB SCH (12:37)
[2020-12-20] MEDS: SODIUM CHLORIDE 0.9% 1,000 ML IV SCH (12:38)
--- NOTE | 2020-12-20 13:00 | P.PN ---
Subjective Progress Note Date: 12/19/20 HISTORY OF PRESENT ILLNESS 80-year-old female patient of Dr. Cordon with past medical history of hypertension, renal disease, congenital loss of one kidney, recurrent anemia, chronic kidney disease stage III, restless leg syndrome, history of chronic anemia with frequent iron transfusions and blood transfusion follows hematology, chronic B12 deficiency, recurrent depression. Patient and multiple admissions including September 2019. Patient had multiple transfusions for acute blood loss anemia secondary to AVM. EGD was performed status post iron plasma coagulation therapy. Hospitalized in October 2019 with similar complaint underwent EGD requiring argon plasma therapy for treatment of small bowel injury days ER. Patient was last admitted on for acute blood loss anemia with a hemoglobin of 5.1 underwent push enteroscopy showing multiple small bowel AVM status post argon plasma coag ablation therapy discharged on 11/13 status post 2 units PRBCs. Comes in with abnormal labs in primary care office patient has documented exertional dyspnea and chest heaviness. She denies any history of melena or bright red rectal bleeding. Vitals were reviewed temp 98.7 pulse 89 and respiratory rate 22 blood pressure 106/59 stopped level reviewed patient's hemoglobins 5.6 hematocrit 18.6 WBC 6.9 platelet 357 sodium 1 1938 potassium 5.2 chloride 113 bicarb 18 BUN 67 creatinine 1.99 baseline creatinine 1.3 magnesium 2.4 total bilirubin 0.1 troponin 0.012 normal LFTs UA s uggestive of infection with positive nitrite and large leukocytes with multiple WBCs. 12/19: Patient is followed by oncology and GI consult is in place due to history of AVMs. Repeat blood work reveals WBC 5.5, hemoglobin 8.1, platelet count 294. BUN 55 and creatinine 1.78. IgG low at 626, IgA 67.2, IgM 82.4, rheumatoid factor less than 4. VALENTINE screen negative. Free kappa 4.65, free lambda 3.48. Urine culture is in progress. Patient has been afebrile, heart rate 61, blood pressure 124/59, pulse ox 96% on room air. Patient is status post 2 units of packed RBCs on 12/18. Continue to monitor hemoglobin. REVIEW OF SYSTEMS Constitutional: Denies chills, Denies fever, endorses lethargy, endorses malaise, Denies poor appetite Eyes: denies decreased vision, denies diplopia, denies discharge, denies pain Ears: deny: decreased hearing Ears, nose, mouth and throat: Denies dental pain, Denies headache, Denies nasal discharge, Denies nose pain Cardiovascular: Denies chest pain, endorses decreased exercise tolerance, Denies edema, Denies high blood pressure, Denies irregular heart beat, Denies palpitations, Denies paroxysmal nocturnal dyspnea, Denies rapid heart beat, Denies shortness of breath Respiratory: Denies congestion, Denies cough, Denies cough with sputum, endorses dyspnea, Denies home oxygen, Denies wheezing Gastrointestinal: Denies abdominal pain, Denies change in bowel habits, Denies coffee ground emesis, Denies early satiety, Denies excessive gas, Denies heartburn, Denies hematemesis, Denies hematochezia, Denies loss of appetite, Denies nausea, Denies vomiting Genitourinary: Denies dysuria, Denies flank pain, Denies kidney stones, Denies m enorrhagia, Denies urgency, Denies urinary frequency Musculoskeletal: Denies gait dysfunction, Denies limitation of motion, Denies morning stiffness, Denies muscle cramps Integumentary: Denies rash, Denies wounds, Denies brittle nails, Denies change in hair/nails, Denies darkening of skin Neurological: Denies balance difficulties, Denies change in speech, Denies double vision, Denies gait dysfunction, Denies loss of vision, Denies motor disturbance, Denies numbness, Denies paralysis, Denies paresthesias, Denies seizures Psychiatric: Denies anxiety, Denies depression Endocrine: Denies excessive sweating, Denies excessive thirst, Denies high blood sugars, Denies palpitations Hematologic/Lymphatic: Denies easy bruising, Denies lymphadenopathy PHYSICAL EXAMINATION Gen: This is an 80-year-old female patient, resting in bed and appears to be comfortable and in no acute distress. HEENT: Head is atraumatic, normocephalic. Pupils equal, round. Sclerae is anicteric. NECK: Supple. No JVD. No lymphadenopathy. No thyromegaly. LUNGS: Clear to auscultation. No wheezes or rhonchi. No intercostal retractions. HEART: Regular rate and rhythm. No murmur. ABDOMEN: Soft. Bowel sounds are present. No masses. No tenderness. EXTREMITIES: No pedal edema. No calf tenderness. NEUROLOGICAL: Patient is awake, alert and oriented x3. Cranial nerves 2 through 12 are grossly intact. ASSESSMENT AND PLAN 1. Acute blood loss anemia most likely secondary to AVM . Status post transfusion 2 units of packed RBCs. Protonix 40 mg IV twice daily. Monitor hemoglobin. Consult in place with GI 2. Acute GI bleed. With elevated BUN and creatinine GI consult. Fecal occult ordered 3. Previous hospitalizations for acute blood loss anemia secondary to AVM status post transfusions, and EGD with argon plasma coagulation therapy. 3. Worsening dyspnea secondary to anemia. Continue monitoring hemoglobin closely. 4. Acute urinary tract infection. Patient started on ceftriaxone 1 g IV piggyback daily, urine culture in process. 5. Acute kidney injury. Continue IV fluids 0.9 normal saline at 75 mL per hour. Hold Lasix. 6. Hyperkalemia secondary to acute kidney injury, resolved. 7. Metabolic acidosis. 8. Chronic B12 deficiency anemia. 9. Chronic kidney disease stage III with congenital loss of one kidney. Monitor electrolytes and renal function. 10. Hypertension. hold losartan 100 mg daily, continue amlodipine 10 mg daily. Hold Lasix. 11. Recurrent depression and generalized anxiety disorder. Continue Celexa 40 mg daily, Cymbalta 20 mg daily, Xanax 0.25 mg daily and 0.5 at bedtime. 12. DVT prophylaxis. TRINO duncan and SCDs. 13. GI prophylaxis: Continue patient on pantoprazole. DISCHARGE PLAN [facility] Impression and plan of care have been directed as dictated by the signing physician. Corina Phan nurse practitioner acting as scribe for signing yuri grace. Objective - Vital Signs Vital signs: Vital Signs Temp 97.9 F 12/19/20 08:00 Pulse 61 12/19/20 08:00 Resp 16 12/19/20 08:00 BP 124/59 12/19/20 08:00 Pulse Ox 96 12/19/20 08:00 Intake & Output 12/18/20 12/19/20 12/19/20 18:59 06:59 18:59 Intake Total 310 310 360 Output Total 250 Balance 310 310 110 Weight 68.492 kg 67.4 kg Intake: Oral 360 Blood Product 310 310 Rc As-1 Unit 310 [id number] Rc Cpda-1 Unit 0 310 [id number] Output: Urine 250 Other: Voiding Method Toilet Toilet # Voids 1 1 - Labs CBC & Chem 7: 12/19/20 08:03 12/19/20 08:03 Labs: Abnormal Lab Results - Last 24 Hours (Table) 12/18/20 12/18/20 12/18/20 Range/Units 13:21 13:21 13:21 RBC 1.91 L (3.80-5.40) m/uL Hgb 5.6 L* D (11.4-16.0) gm/dL Hct 18.6 L* (34.0-46.0) % MCHC 29.9 L (31.0-37.0) g/dL RDW 15.9 H (11.5-15.5) % Lymphocytes # (Manual) 0.90 L (1.0-4.8) k/uL Retic Count (0.5-2.0) % Potassium 5.2 H (3.5-5.1) mmol/L Chloride 113 H (98-107) mmol/L Carbon Dioxide 18 L (22-30) mmol/L BUN 67 H (7-17) mg/dL Creatinine 1.99 H (0.52-1.04) mg/dL Glucose 117 H (74-99) mg/dL Magnesium 2.4 H (1.6-2.3) mg/dL Iron (50-170) ug/dL % Saturation (12.00-45.00) Total Bilirubin <0.1 L (0.2-1.3) mg/dL Lactate Dehydrogenase (313-618) U/L Total Protein 5.4 L (6.3-8.2) g/dL Total Protein (PEP) (6.2-8.2) g/dL Albumin 3.1 L (3.5-5.0) g/dL Vitamin B12 984.0 H (200.0-944.0) pg/mL Urine Appearance (Clear) Urine Nitrite (Negative) Ur Leukocyte Esterase (Negative) Urine WBC (0-5) /hpf Ur Squamous Epith Cells (0-4) /hpf Urine Bacteria (None) /hpf Urine Mucus (None) /hpf Crossmatch 12/18/20 12/18/20 12/18/20 Range/Units 13: 13:30 13:51 RBC (3.80-5.40) m/uL Hgb (11.4-16.0) gm/dL Hct (34.0-46.0) % MCHC (31.0-37.0) g/dL RDW (11.5-15.5) % Lymphocytes # (Manual) (1.0-4.8) k/uL Retic Count (0.5-2.0) % Potassium (3.5-5.1) mmol/L Chloride (98-107) mmol/L Carbon Dioxide (22-30) mmol/L BUN (7-17) mg/dL Creatinine (0.52-1.04) mg/dL Glucose (74-99) mg/dL Magnesium (1.6-2.3) mg/dL Iron 19 L (50-170) ug/dL % Saturation 5.69 L (12.00-45.00) Total Bilirubin (0.2-1.3) mg/dL Lactate Dehydrogenase 1137 H (313-618) U/L Total Protein (6.3-8.2) g/dL Total Protein (PEP) (6.2-8.2) g/dL Albumin (3.5-5.0) g/dL Vitamin B12 (200.0-944.0) pg/mL Urine Appearance Cloudy H (Clear) Urine Nitrite Positive H (Negative) Ur Leukocyte Esterase Large H (Negative) Urine WBC 117 H (0-5) /hpf Ur Squamous Epith Cells 8 H (0-4) /hpf Urine Bacteria Occasional H (None) /hpf Urine Mucus Rare H (None) /hpf Crossmatch See Detail 12/18/20 12/18/20 12/18/20 Range/Units 23:11 23:11 23:11 RBC 2.71 L (3.80-5.40) m/uL Hgb 7.6 L D (11.4-16.0) gm/dL Hct 24.7 L (34.0-46.0) % MCHC 30.5 L (31.0-37.0) g/dL RDW 17.4 H (11.5-15.5) % Lymphocytes # (Manual) 0.70 L (1.0-4.8) k/uL Retic Count 5.0 H (0.5-2.0) % Potassium (3.5-5.1) mmol/L Chloride (98-107) mmol/L Carbon Dioxide (22-30) mmol/L BUN (7-17) mg/dL Creatinine (0.52-1.04) mg/dL Glucose (74-99) mg/dL Magnesium (1.6-2.3) mg/dL Iron (50-170) ug/dL % Saturation (12.00-45.00) Total Bilirubin (0.2-1.3) mg/dL Lactate Dehydrogenase (313-618) U/L Total Protein (6.3-8.2) g/dL Total Protein (PEP) 5.0 L (6.2-8.2) g/dL Albumin (3.5-5.0) g/dL Vitamin B12 (200.0-944.0) pg/mL Urine Appearance (Clear) Urine Nitrite (Negative) Ur Leukocyte Esterase (Negative) Urine WBC (0-5) /hpf Ur Squamous Epith Cells (0-4) /hpf Urine Bacteria (None) /hpf Urine Mucus (None) /hpf Crossmatch 12/19/20 12/19/20 Range/Units 08:03 08:03 RBC 2.86 L (3.80-5.40) m/uL Hgb 8.1 L (11.4-16.0) gm/dL Hct 26.5 L (34.0-46.0) % MCHC 30.6 L (31.0-37.0) g/dL RDW 17.4 H (11.5-15.5) % Lymphocytes # (Manual) (1.0-4.8) k/uL Retic Count (0.5-2.0) % Potassium (3.5-5.1) mmol/L Chloride 115 H (98-107) mmol/L Carbon Dioxide (22-30) mmol/L BUN 55 H (7-17) mg/dL Creatinine 1.78 H (0.52-1.04) mg/dL Glucose 101 H (74-99) mg/dL Magnesium (1.6-2.3) mg/dL Iron (50-170) ug/dL % Saturation (12.00-45.00) Total Bilirubin 0.1 L (0.2-1.3) mg/dL Lactate Dehydrogenase (313-618) U/L Total Protein 5.2 L (6.3-8.2) g/dL Total Protein (PEP) (6.2-8.2) g/dL Albumin 3.0 L (3.5-5.0) g/dL Vitamin B12 (200.0-944.0) pg/mL Urine Appearance (Clear) Urine Nitrite (Negative) Ur Leukocyte Esterase (Negative) Urine WBC (0-5) /hpf Ur Squamous Epith Cells (0-4) /hpf Urine Bacteria (None) /hpf Urine Mucus (None) /hpf Crossmatch Microbiology - Last 24 Hours (Table) 12/18/20 13:51 Urine Culture - Preliminary Urine,Clean Catch
--- NOTE | 2020-12-20 13:04 | P.PN ---
Subjective Progress Note Date: 12/20/20 HISTORY OF PRESENT ILLNESS 80-year-old female patient of Dr. Cordon with past medical history of hypertension, renal disease, congenital loss of one kidney, recurrent anemia, chronic kidney disease stage III, restless leg syndrome, history of chronic anemia with frequent iron transfusions and blood transfusion follows hematology, chronic B12 deficiency, recurrent depression. Patient and multiple admissions including September 2019. Patient had multiple transfusions for acute blood loss anemia secondary to AVM. EGD was performed status post iron plasma coagulation therapy. Hospitalized in October 2019 with similar complaint underwent EGD requiring argon plasma therapy for treatment of small bowel injury days ER. Patient was last admitted on for acute blood loss anemia with a hemoglobin of 5.1 underwent push enteroscopy showing multiple small bowel AVM status post argon plasma coag ablation therapy discharged on 11/13 status post 2 units PRBCs. Comes in with abnormal labs in primary care office patient has documented exertional dyspnea and chest heaviness. She denies any history of melena or bright red rectal bleeding. Vitals were reviewed temp 98.7 pulse 89 and respiratory rate 22 blood pressure 106/59 stopped level reviewed patient's hemoglobins 5.6 hematocrit 18.6 WBC 6.9 platelet 357 sodium 1 1938 potassium 5.2 chloride 113 bicarb 18 BUN 67 creatinine 1.99 baseline creatinine 1.3 magnesium 2.4 total bilirubin 0.1 troponin 0.012 normal LFTs UA s uggestive of infection with positive nitrite and large leukocytes with multiple WBCs. 12/19: Patient is followed by oncology and GI consult is in place due to history of AVMs. Repeat blood work reveals WBC 5.5, hemoglobin 8.1, platelet count 294. BUN 55 and creatinine 1.78. IgG low at 626, IgA 67.2, IgM 82.4, rheumatoid factor less than 4. VALENTINE screen negative. Free kappa 4.65, free lambda 3.48. Urine culture is in progress. Patient has been afebrile, heart rate 61, blood pressure 124/59, pulse ox 96% on room air. Patient is status post 2 units of packed RBCs on 12/18. Continue to monitor hemoglobin. 12/20: Patient denies having any symptoms of bleeding. She has had no bowel movements. She states she does get lightheaded when she first gets up but that the only time. She has been advanced to a regular diet by GI. IV fluids will be discontinued. Patient has been afebrile, heart rate 60, blood pressure 132/55, pulse ox 92% on room air. Repeat blood work will be ordered for to mendoza and possible discharge. REVIEW OF SYSTEMS Constitutional: Denies chills, Denies fever, endorses lethargy, endorses malaise, Denies poor appetite Eyes: denies decreased vision, denies diplopia, denies discharge, denies pain Ears: deny: decreased hearing Ears, nose, mouth and throat: Denies dental pain, Denies headache, Denies nasal discharge, Denies nose pain Cardiovascular: Denies chest pain, endorses decreased exercise tolerance, Denies edema, Denies high blood pressure, Denies irregular heart beat, Denies palpitations, Denies paroxysmal nocturnal dyspnea, Denies rapid heart beat, Denies shortness of breath Respiratory: Denies congestion, Denies cough, Denies cough with sputum, endorses dyspnea, Denies home oxygen, Denies wheezing Gastrointestinal: Denies abdominal pain, Denies change in bowel habits, Denies coffee ground emesis, Denies early satiety, Denies hematemesis, Denies hematochezia, Denies loss of appetite, Denies nausea, Denies vomiting Genitourinary: Denies dysuria, Denies flank pain, Denies kidney stones, Denies menorrhagia, Denies urgency, Denies urinary frequency Musculoskeletal: Denies gait dysfunction, Denies limitation of motion, Denies morning stiffness, Denies muscle cramps Integumentary: Denies rash, Denies wounds, Denies brittle nails, Denies change in hair/nails, Denies darkening of skin Neurological: Denies balance difficulties, Denies change in speech, Denies double vision, Denies gait dysfunction, Denies loss of vision, Denies motor disturbance, Denies numbness, Denies paralysis, Denies paresthesias, Denies seizures Psychiatric: Denies anxiety, Denies depression Endocrine: Denies excessive sweating, Denies excessive thirst, Denies high blood sugars, Denies palpitations Hematologic/Lymphatic: Denies easy bruising, Denies lymphadenopathy PHYSICAL EXAMINATION Gen: This is an 80-year-old female patient, resting in bed and appears to be comfortable and in no acute distress. HEENT: Head is atraumatic, normocephalic. Pupils equal, round. Sclerae is anicteric. NECK: Supple. No JVD. No lymphadenopathy. No thyromegaly. LUNGS: Clear to auscultation. No wheezes or rhonchi. No intercostal retractions. HEART: Regular rate and rhythm. No murmur. ABDOMEN: Soft. Bowel sounds are present. No masses. No tenderness. EXTREMITIES: No pedal edema. No calf tenderness. NEUROLOGICAL: Patient is awake, alert and oriented x3. Cranial nerves 2 through 12 are grossly intact. ASSESSMENT AND PLAN 1. Acute blood loss anemia most likely secondary to AVM . Status post transfusion 2 units of packed RBCs. Protonix 40 mg IV twice daily. Monitor hemoglobin. Consult in place with GI. Repeat CBC in the morning. 2. Acute GI bleed, possible. With elevated BUN and creatinine GI consult. Fecal occult ordered 3. Previous hospitalizations for acute blood loss anemia secondary to AVM status post transfusions, and EGD with argon plasma coagulation therapy. 3. Worsening dyspnea secondary to anemia. Continue monitoring hemoglobin closely. 4. Acute urinary tract infection. Patient started on ceftriaxone 1 g IV piggyback daily, urine culture in process. 5. Acute kidney injury. Continue IV fluids 0.9 normal saline at 75 mL per hour. Hold Lasix. 6. Hyperkalemia secondary to acute kidney injury, resolved. 7. Metabolic acidosis. 8. Chronic B12 deficiency anemia. 9. Chronic kidney disease stage III with congenital loss of one kidney. Monitor electrolytes and renal function. 10. Hypertension. hold losartan 100 mg daily, continue amlodipine 10 mg daily. Hold Lasix. 11. Recurrent depression and generalized anxiety disorder. Continue Celexa 40 mg daily, Cymbalta 20 mg daily, Xanax 0.25 mg daily and 0.5 at bedtime. 12. DVT prophylaxis. TRINO hose and SCDs. 13. GI prophylaxis: Continue patient on pantoprazole. DISCHARGE PLAN [facility] Impression and plan of care have been directed as dictated by the signing physician. Corina Phan nurse practitioner acting as scribe for signing physician. Objective - Vital Signs Vital signs: Vital Signs Temp 98.4 F 12/20/20 05:16 Pulse 60 12/20/20 05:16 Resp 16 12/20/20 05:16 BP 132/55 12/20/20 05:16 Pulse Ox 96 12/20/20 08:06 Intake & Output 12/19/20 12/20/20 12/20/20 18:59 06:59 18:59 Intake Total 360 480 Output Total 750 Balance -390 480 Intake: Oral 360 480 Output: Urine 750 Other: Voiding Method Toilet Toilet Toilet - Labs CBC & Chem 7: 12/19/20 08:03 12/19/20 08:03 Labs: Abnormal Lab Results - Last 24 Hours (Table) 12/18/20 12/18/20 12/19/20 Range/Units 23:11 23:11 08:03 RBC 2.86 L (3.80-5.40) m/uL Hgb 8.1 L (11.4-16.0) gm/dL Hct 26.5 L (34.0-46.0) % MCHC 30.6 L (31.0-37.0) g/dL RDW 17.4 H (11.5-15.5) % Lymphocytes # (Manual) 0.50 L (1.0-4.8) k/uL Eosinophils # (Manual) 0.72 H (0-0.7) k/uL Chloride (98-107) mmol/L BUN (7-17) mg/dL Creatinine (0.52-1.04) mg/dL Glucose (74-99) mg/dL Total Bilirubin (0.2-1.3) mg/dL Total Protein (6.3-8.2) g/dL Albumin (3.5-5.0) g/dL IgG 626.0 L (700.0-1600.0) mg/dL Free [place] LC, Quant 4.65 H (0.33-1.94) mg/dL Free Lambda LC, Quant 3.48 H (0.57-2.63) mg/dL 12/19/20 Range/Units 08:03 RBC (3.80-5.40) m/uL Hgb (11.4-16.0) gm/dL Hct (34.0-46.0) % MCHC (31.0-37.0) g/dL RDW (11.5-15.5) % Lymphocytes # (Manual) (1.0-4.8) k/uL Eosinophils # (Manual) (0-0.7) k/uL Chloride 115 H (98-107) mmol/L BUN 55 H (7-17) mg/dL Creatinine 1.78 H (0.52-1.04) mg/dL Glucose 101 H (74-99) mg/dL Total Bilirubin 0.1 L (0.2-1.3) mg/dL Total Protein 5.2 L (6.3-8.2) g/dL Albumin 3.0 L (3.5-5.0) g/dL IgG (700.0-1600.0) mg/dL Free [place] LC, Quant (0.33-1.94) mg/dL Free Lambda LC, Quant (0.57-2.63) mg/dL Microbiology - Last 24 Hours (Table) 12/18/20 13:51 Urine Culture - Preliminary Urine,Clean Catch Gram Neg Bacilli
[2020-12-20] MEDS: ALPRAZolam 0.5 MG TAB PO SCH (20:57)
[2020-12-20] MEDS: MELATONIN 5 MG TABLET PO SCH (20:57)
[2020-12-21] MEDS: SODIUM CHLORIDE 0.9% 1,000 ML IV SCH (00:23)
[2020-12-21 06:18] LABS: Anisocytosis Slight; HCT 25.4 % (34.0-46.0); Hypochromasia Marked; MCH 29.2 pg (25.0-35.0); MCHC 31.4 g/dL (31.0-37.0); Mean Platelet Volume 7.2; Platelet Count 294 k/uL (150-450); Poikilocytosis Slight; RBC 2.73 m/uL (3.80-5.40); RDW 16.8 % (11.5-15.5); WBC 6.7 k/uL (3.8-10.6)
[2020-12-21] MEDS: CITALOPRAM HYDROBROMIDE 20 MG TAB PO SCH (07:58)
[2020-12-21] MEDS: ALPRAZolam 0.25 MG TAB PO SCH (07:58)
[2020-12-21] MEDS: ACETAMINOPHEN TAB 325 MG TAB PO PRN ×2 (07:58→22:17)
[2020-12-21] MEDS: amLODIPine 10 MG TAB PO SCH (07:58)
[2020-12-21] MEDS: PANTOPRAZOLE 40 MG/10 ML VIAL IVP SCH (07:59)
[2020-12-21] MEDS: ISOSORBIDE DINITRATE 10 MG TAB PO SCH (07:59)
[2020-12-21] MEDS: DULoxetine HCL 20 MG CAPSULE.DR PO SCH (07:59)
[2020-12-21] MEDS: polyethylene glycoL 3350 17 GM POWD.PACK PO SCH ×2 (07:59→08:05)
[2020-12-21] MEDS: VIT A,C & E-LUTEIN-MINERALS 1 EACH TAB PO SCH (07:59)
[2020-12-21] MEDS ORDERED: PROPOFOL 10 MG/ML 20 ML VIAL IV ONE (08:50)
[2020-12-21] MEDS ORDERED: IV FLUID CONTINUATION 1,000 ML IV ONE ×2 (08:52)
--- NOTE | 2020-12-21 09:29 | P.PN ---
Subjective Progress Note Date: 12/20/20 Principal diagnosis: Anemia acute blood loss, small bowel angiectasia Patient is lying in bed and is tolerated diet. No abdominal pain. She denies any signs or symptoms of GI bleeding. Objective - Vital Signs Vital signs: Vital Signs Temp 98.4 F 12/20/20 05:16 Pulse 60 12/20/20 05:16 Resp 16 12/20/20 05:16 BP 132/55 12/20/20 05:16 Pulse Ox 96 12/20/20 08:06 Intake & Output 12/19/20 12/20/20 12/20/20 18:59 06:59 18:59 Intake Total 360 480 Output Total 750 Balance -390 480 Intake: Oral 360 480 Output: Urine 750 Other: Voiding Method Toilet Toilet Toilet - Exam On physical examination, patient appears comfortable in no apparent distress. HEAD: Normocephalic, atraumatic. EYES: No scleral icterus. No conjunctival injection. MOUTH: No lesions, tongue midline. NECK: Trachea midline, no gross abnormalities. ABDOMEN: Soft, nontender to palpation. Bowel sounds are positive. No organomegaly. No guarding or rigidity. EXTREMITIES: No pedal edema. SKIN: No rashes, no jaundice. NEUROLOGIC: Alert and oriented. No focal deficits. - Labs CBC & Chem 7: 12/21/20 05:43 12/19/20 08:03 Labs: Abnormal Lab Results - Last 24 Hours (Table) 12/18/20 12/18/20 12/19/20 Range/Units 23:11 23:11 08:03 Lymphocytes # (Manual) 0.50 L (1.0-4.8) k/uL Eosinophils # (Manual) 0.72 H (0-0.7) k/uL IgG 626.0 L (700.0-1600.0) mg/dL Free [place] LC, Quant 4.65 H (0.33-1.94) mg/dL Free Lambda LC, Quant 3.48 H (0.57-2.63) mg/dL Microbiology - Last 24 Hours (Table) 12/18/20 13:51 Urine Culture - Preliminary Urine,Clean Catch Gram Neg Bacilli Assessment and Plan (1) Anemia associated with acute blood loss Narrative/Plan: 80-year-old female with multiple medical comorbidities and multiple hospitalizations for anemia. Anemia is multifactorial secondary to vitamin B12 deficiency, iron deficiency and suspicion for chronic loss from small bowel angioectasia with multiple endoscopic evaluations in the past requiring argon plasma coagulation therapy for small bowel angioectasia. She is denying any signs or symptoms of GI bleeding at this time and does feel better status post transfusion of PRBCs. Current Visit: Yes Status: Acute Code(s): D62 - ACUTE POSTHEMORRHAGIC ANEMIA SNOMED Code(s): 328181658 (2) B12 deficiency anemia Current Visit: Yes Status: Acute Code(s): D51.9 - VITAMIN B12 DEFICIENCY ANEMIA, UNSPECIFIED SNOMED Code(s): 50233530 (3) Iron deficiency anemia Current Visit: No Status: Acute Code(s): D50.9 - IRON DEFICIENCY ANEMIA, UNSPECIFIED SNOMED Code(s): 81647310 Plan: Supportive care Full liquid diet, nothing by mouth after midnight Continue to monitor hemoglobin and hematocrit and transfuse as needed Continue to monitor stool output Continue IV iron infusions as per recommendations by hematology service Recent EGD in 11/24 reviewed, plan for EGD tomorrow for further evaluation Continue Protonix therapy Thank you for allowing us to participate in the care of the patient we will continue to follow
--- NOTE | 2020-12-21 09:33 | P.PCN ---
Date of Procedure: 12/21/20 Description of Procedure: BRIEF HISTORY: 80-year-old female with multiple medical comorbidities including hypertension, chronic kidney disease, congenital loss of one kidney, restless leg syndrome, history of chronic anemia on iron replacement, chronic B12 deficiency, and prior small bowel bleeding who presented to the hospital due to abnormal laboratory evaluation. The patient was found to be anemic in the outpatient setting and was told to come to the hospital for further evaluation. She has had multiple evaluations for similar complaints. She denies any NSAID use or anticoagulation therapy. Previously she underwent EGD and 10/23 with argon plasma coagulation therapy for small bowel angiectasia, previous to that she had had EGD on 09/26/19 with argon plasma coagulation for angiectasia as well as a small hiatal hernia. In 2017 she had EGD with argon plasma coagulation therapy and Endo Clip placement for duodenal angiectasia and in August 2016 she underwent EGD and colonoscopy with Dr. Quach showing duodenitis, mild gastritis, hiatal hernia and diverticulosis. On her last admission and November she had EGD on 11/12/20 with multiple small bowel nonbleeding AVMs treated with argon plasma coagulation therapy, a small hiatal hernia and a patent distal esophageal Schatzki's ring noted. At this time she is denying any signs or symptoms of GI bleeding. She is denying any abdominal pain. She has received IV iron infusion since presentation. Hemoglobin is stable after transfusion at 7.6 from 5.6 on presentation. PROCEDURE PERFORMED: Esophagogastroduodenoscopy with argon plasma coagulation/ERBE for treatment of small bowel angioectasia. PREOPERATIVE DIAGNOSIS: Anemia of acute blood loss, history of small bowel angioectasia. ESTIMATED BLOOD LOSS: Minimal. IV sedation per anesthesia. PROCEDURE: After informed consent was obtained, the patient was brought into the endoscopy unit. IV sedation was administered by Anesthesia under continuous monitoring. Initially the Olympus GIF-190 video endoscope was inserted into the mouth. Esophagus intubated without any difficulty. It was gradually advanced into the stomach and duodenum and carefully examined. The bulb and the second part of the duodenum appeared normal, Except for 5 nonbleeding angiectasia noted in the second portion of the duodenum treated with argon plasma coagulation therapy for prevention of bleeding. The scope at this time was withdrawn to the stomach, adequately insufflated with air, and upon careful examination, mucosa of the antrum, body, cardia and the fundus appeared normal. The scope was then withdrawn into the esophagus. The GE junction was located at 36 cm from the inci sors, With a small hiatal hernia noted and a widely patent distal esophageal Schatzki's ring. The esophagus appeared normal. There were no erosions or ulcerations seen and the patient tolerated the procedure well. IMPRESSION: 1. Multiple nonbleeding small bowel angiectasia treated with argon plasma coagulation therapy/ERBE. 2. Small hiatal hernia. 3. Widely patent distal Schatzki's ring. RECOMMENDATIONS: The findings of this examination were discussed with the patient. Okay for full liquid diet today and to advance tomorrow. Continue to monitor hemoglobin and hematocrit and transfuse as needed continue Protonix therapy. Okay for discharge when otherwise medically stable.
[2020-12-21] MEDS: SODIUM FERRIC GLUCONAT-SUCROSE 125 MG in SODIUM CHLORIDE 0.9% 100 ML IVPB SCH (10:30)
--- NOTE | 2020-12-21 10:44 | P.PN ---
Subjective Progress Note Date: 12/21/20 HISTORY OF PRESENT ILLNESS 80-year-old female patient of Dr. Cordon with past medical history of hypertension, renal disease, congenital loss of one kidney, recurrent anemia, chronic kidney disease stage III, restless leg syndrome, history of chronic anemia with frequent iron transfusions and blood transfusion follows hematology, chronic B12 deficiency, recurrent depression. Patient and multiple admissions including September 2019. Patient had multiple transfusions for acute blood loss anemia secondary to AVM. EGD was performed status post iron plasma coagulation therapy. Hospitalized in October 2019 with similar complaint underwent EGD requiring argon plasma therapy for treatment of small bowel injury days ER. Patient was last admitted on for acute blood loss anemia with a hemoglobin of 5.1 underwent push enteroscopy showing multiple small bowel AVM status post argon plasma coag ablation therapy discharged on 11/13 status post 2 units PRBCs. Comes in with abnormal labs in primary care office patient has documented exertional dyspnea and chest heaviness. She denies any history of melena or bright red rectal bleeding. Vitals were reviewed temp 98.7 pulse 89 and respiratory rate 22 blood pressure 106/59 stopped level reviewed patient's hemoglobins 5.6 hematocrit 18.6 WBC 6.9 platelet 357 sodium 1 1938 potassium 5.2 chloride 113 bicarb 18 BUN 67 creatinine 1.99 baseline creatinine 1.3 magnesium 2.4 total bilirubin 0.1 troponin 0.012 normal LFTs UA s uggestive of infection with positive nitrite and large leukocytes with multiple WBCs. 12/19: Patient is followed by oncology and GI consult is in place due to history of AVMs. Repeat blood work reveals WBC 5.5, hemoglobin 8.1, platelet count 294. BUN 55 and creatinine 1.78. IgG low at 626, IgA 67.2, IgM 82.4, rheumatoid factor less than 4. VALENTINE screen negative. Free kappa 4.65, free lambda 3.48. Urine culture is in progress. Patient has been afebrile, heart rate 61, blood pressure 124/59, pulse ox 96% on room air. Patient is status post 2 units of packed RBCs on 12/18. Continue to monitor hemoglobin. 12/20: Patient denies having any symptoms of bleeding. She has had no bowel movements. She states she does get lightheaded when she first gets up but that the only time. She has been advanced to a regular diet by GI. IV fluids will be discontinued. Patient has been afebrile, heart rate 60, blood pressure 132/55, pulse ox 92% on room air. Repeat blood work will be ordered for to kelly and possible discharge. 12/21: Dr. ryan she performed EGD this morning finding multiple nonbleeding small bowel angiectasia treated with argon plasma coagulation therapy, small hiatal hernia, widely patent distal Schatzki's ring. Recommendations are for a full liquid diet today all day and tomorrow can be advanced to regular. Repeat hemoglobin is 8.0. Plan to monitor patient overnight for bleeding, repeat hemoglobin in the morning and probable discharge home. REVIEW OF SYSTEMS Constitutional: Denies chills, Denies fever, endorses lethargy, endorses mal aise, Denies poor appetite Eyes: denies decreased vision, denies diplopia, denies discharge, denies pain Ears: deny: decreased hearing Ears, nose, mouth and throat: Denies dental pain, Denies headache, Denies nasal discharge, Denies nose pain Cardiovascular: Denies chest pain, endorses decreased exercise tolerance, Denies edema, Denies high blood pressure, Denies irregular heart beat, Denies palpi tations, Denies paroxysmal nocturnal dyspnea, Denies rapid heart beat, Denies shortness of breath Respiratory: Denies congestion, Denies cough, Denies cough with sputum, endorses dyspnea, Denies home oxygen, Denies wheezing Gastrointestinal: Denies abdominal pain, Denies change in bowel habits, Denies coffee ground emesis, Denies early satiety, Denies hematemesis, Denies hematochezia, Denies loss of appetite, Denies nausea, Denies vomiting Genitourinary: Denies dysuria, Denies flank pain, Denies kidney stones, Denies menorrhagia, Denies urgency, Denies urinary frequency Musculoskeletal: Denies gait dysfunction, Denies limitation of motion, Denies morning stiffness, Denies muscle cramps Integumentary: Denies rash, Denies wounds, Denies brittle nails, Denies change in hair/nails, Denies darkening of skin Neurological: Denies balance difficulties, Denies change in speech, Denies double vision, Denies gait dysfunction, Denies loss of vision, Denies motor disturbance, Denies numbness, Denies paralysis, Denies paresthesias, Denies seizures Psychiatric: Denies anxiety, Denies depression Endocrine: Denies excessive sweating, Denies excessive thirst, Denies high blood sugars, Denies palpitations PHYSICAL EXAMINATION Gen: This is an 80-year-old female patient, resting in bed and appears to be comfortable and in no acute distress. HEENT: Head is atraumatic, normocephalic. Pupils equal, round. Sclerae is anicteric. NECK: Supple. No JVD. No lymphadenopathy. No thyromegaly. LUNGS: Clear to auscultation. No wheezes or rhonchi. No intercostal retractions. HEART: Regular rate and rhythm. No murmur. ABDOMEN: Soft. Bowel sounds are present. No masses. No tenderness. EXTREMITIES: No pedal edema. No calf tenderness. NEUROLOGICAL: Patient is awake, alert and oriented x3. Cranial nerves 2 through 12 are grossly intact. ASSESSMENT AND PLAN 1. Acute blood loss anemia most likely secondary to AVM. Status post transfusion 2 units of packed RBCs. Protonix 40 mg IV twice daily. Monitor hemoglobin. Consult in place with GI appreciated. Repeat CBC in the morning. 2. Acute GI bleed secondary to small bowel agitation is status post argon plasma coagulation therapy. Consult with GI appreciated. Plan is for full liquid diet all day Tuesday and start regular diet on Tuesday. 3. Previous hospitalizations for acute blood loss anemia secondary to AVM status post transfusions, and EGD with argon plasma coagulation therapy. 3. Worsening dyspnea secondary to anemia. Continue monitoring hemoglobin closely. 4. Acute urinary tract infection. Patient started on ceftriaxone 1 g IV piggyback daily, urine culture in process. 5. Acute kidney injury. Continue IV fluids 0.9 normal saline at 75 mL per hour. Hold Lasix. 6. Hyperkalemia secondary to acute kidney injury, resolved. 7. Metabolic acidosis. 8. Chronic B12 deficiency anemia. 9. Chronic kidney disease stage III with congenital loss of one kidney. Monitor electrolytes and renal function. 10. Hypertension. hold losartan 100 mg daily, continue amlodipine 10 mg daily. Hold Lasix. 11. Recurrent depression and generalized anxiety disorder. Continue Celexa 40 mg daily, Cymbalta 20 mg daily, Xanax 0.25 mg daily and 0.5 at bedtime. 12. DVT prophylaxis. TRINO hose and SCDs. 13. GI prophylaxis: Continue patient on pantoprazole. DISCHARGE PLAN [facility] on Tuesday Impression and plan of care have been directed as dictated by the signing physician. Corina Phan nurse practitioner acting as scribe for signing physician. Objective - Vital Signs Vital signs: Vital Signs Temp 98.6 F 12/21/20 04:59 Pulse 72 12/21/20 04:59 Resp 16 12/21/20 04:59 BP 147/60 12/21/20 04:59 Pulse Ox 94 L 12/21/20 04:59 Intake & Output 12/20/20 12/21/20 12/21/20 18:59 06:59 18:59 Intake Total 1347 Balance 1347 Intake: Intake, IV Titration 900 Amount Sodium Chloride 0.9% 1, 900 000 ml @ 75 mls/hr IV . [id number] RADHA Rx#:[id number] Oral 447 Other: Voiding Method Toilet Toilet # Voids 2 2 # Bowel Movements 1 - Labs CBC & Chem 7: 12/21/20 05:43 12/19/20 08:03 Labs: Abnormal Lab Results - Last 24 Hours (Table) 12/18/20 12/21/20 Range/Units 20:30 05:43 RBC 2.73 L (3.80-5.40) m/uL Hgb 8.0 L (11.4-16.0) gm/dL Hct 25.4 L (34.0-46.0) % RDW 16.8 H (11.5-15.5) % Stool Occult Blood Positive H (Negative) Microbiology - Last 24 Hours (Table) 12/18/20 13:51 Urine Culture - Final Urine,Clean Catch Escherichia coli
[2020-12-21] MEDS: PANTOPRAZOLE 40 MG TABLET PO SCH (17:09)
[2020-12-21] MEDS: CEPHALEXIN 250 MG CAP PO SCH ×2 (17:09→20:25)
[2020-12-21 19:42] VITALS: RESP 16
[2020-12-21] MEDS: ALPRAZolam 0.5 MG TAB PO SCH (20:25)
[2020-12-21] MEDS: MELATONIN 5 MG TABLET PO SCH (20:25)
[2020-12-22 06:03] LABS: Anisocytosis Slight; HCT 29.1 % (34.0-46.0); HGB 8.6 gm/dL (11.4-16.0); Hypochromasia Marked; MCH 28.5 pg (25.0-35.0); MCHC 29.6 g/dL (31.0-37.0); MCV 96.3 fL (80.0-100.0); Macrocytosis Slight; Mean Platelet Volume 7.3; Platelet Count 278 k/uL (150-450); Poikilocytosis Slight; RBC 3.02 m/uL (3.80-5.40); RDW 16.7 % (11.5-15.5); WBC 6.9 k/uL (3.8-10.6)
[2020-12-22] MEDS: ALPRAZolam 0.25 MG TAB PO SCH (08:21)
[2020-12-22] MEDS: DULoxetine HCL 20 MG CAPSULE.DR PO SCH (08:21)
[2020-12-22] MEDS: polyethylene glycoL 3350 17 GM POWD.PACK PO SCH (08:21)
[2020-12-22] MEDS: CEPHALEXIN 250 MG CAP PO SCH (08:21)
[2020-12-22] MEDS: ISOSORBIDE DINITRATE 10 MG TAB PO SCH (08:22)
[2020-12-22] MEDS: VIT A,C & E-LUTEIN-MINERALS 1 EACH TAB PO SCH (08:22)
[2020-12-22] MEDS: PANTOPRAZOLE 40 MG TABLET PO SCH (08:22)
[2020-12-22] MEDS: amLODIPine 10 MG TAB PO SCH (08:22)
--- NOTE | 2020-12-22 10:07 | P.DS ---
Providers Date of admission: 12/18/20 14:28 Expected date of discharge: 12/22/20 Attending physician: Jaye Fulton MD Consults: 12/18/20 14:29 Consult Physician Routine Consulting Provider: Zen Estrada Consult Reason/Comments: Anemia Do you want consulting provider notified?: Yes 12/18/20 18:40 Consult Physician Stat Consulting Provider: Gem Dubois Consult Reason/Comments: Chronic Anemia Do you want consulting provider notified?: Yes Primary care physician: Ezio Cordon [facility] Course: HISTORY OF PRESENT ILLNESS 80-year-old female patient of Dr. Cordon with past medical history of hypertension, renal disease, congenital loss of one kidney, recurrent anemia, chronic kidney disease stage III, restless leg syndrome, history of chronic anemia with frequent iron transfusions and blood transfusion follows hematology, chronic B12 deficiency, recurrent depression. Patient and multiple admissions including September 2019. Patient had multiple transfusions for acute blood loss anemia secondary to AVM. EGD was performed status post iron plasma coagulation therapy. Hospitalized in October 2019 with similar complaint underwent EGD requiring argon plasma therapy for treatment of small bowel injury days ER. Patient was last admitted on for acute blood loss anemia with a hemoglobin of 5.1 underwent push enteroscopy showing multiple small bowel AVM status post argon plasma coag ablation therapy discharged on 11/13 status post 2 units PRBCs. Comes in with abnormal labs in primary care office patient has documented exertional dyspnea and chest heaviness. She denies any history of melena or bright red rectal bleeding. Vitals were reviewed temp 98.7 pulse 89 and respiratory rate 22 blood pressure 106/59 stopped level reviewed patient's hemoglobins 5.6 hematocrit 18.6 WBC 6.9 platelet 357 sodium 1 1938 potassium 5.2 chloride 113 bicarb 18 BUN 67 creatinine 1.99 baseline creatinine 1.3 magnesium 2.4 total bilirubin 0.1 troponin 0.012 normal LFTs UA suggestive of infection with positive nitrite and large leukocytes with multiple WBCs. 12/19: Patient is followed by oncology and GI consult is in place due to history of AVMs. Repeat blood work reveals WBC 5.5, hemoglobin 8.1, platelet count 294. BUN 55 and creatinine 1.78. IgG low at 626, IgA 67.2, IgM 82.4, rheumatoid factor less than 4. VALENTINE screen negative. Free kappa 4.65, free lambda 3.48. Urine culture is in progress. Patient has been afebrile, heart rate 61, blood pressure 124/59, pulse ox 96% on room air. Patient is status post 2 units of packed RBCs on 12/18. Continue to monitor hemoglobin. 12/20: Patient denies having any symptoms of bleeding. She has had no bowel movements. She states she does get lightheaded when she first gets up but that the only time. She has been advanced to a regular diet by GI. IV fluids will be discontinued. Patient has been afebrile, heart rate 60, blood pressure 132/55, pulse ox 92% on room air. Repeat blood work will be ordered for tomorrow and possible discharge. 12/21: Dr. ryan she performed EGD this morning finding multiple nonbleeding small bowel angiectasia treated with argon plasma coagulation therapy, small hiatal hernia, widely patent distal Schatzki's ring. Recommendations are for a full liquid diet today all day and tomorrow can be advanced to regular. Repeat hemoglobin is 8.0. Plan to monitor patient overnight for bleeding, repeat hemoglobin in the morning and probable discharge home. 12/22: Repeat hemoglobin is 8.6 and patient is cleared for discharge by GI. Patient is completely dressed and ready to leave. She denies any abdominal pain, nausea, vomiting diarrhea. She does have a follow-up appointment with Dr. Dubois tomorrow. Patient will be discharged home today in stable condition. ASSESSMENT AND PLAN 1. Acute blood loss anemia most likely secondary to AVM. Status post transfusion 2 units of packed RBCs. 2. Acute GI bleed secondary to small bowel angiectasia status post argon plasma coagulation therapy. 3. Previous hospitalizations for acute blood loss anemia secondary to AVM status post transfusions, and EGD with argon plasma coagulation therapy. 4. Worsening dyspnea secondary to anemia. 5. Acute E. coli urinary tract infection. 6. Acute kidney injury. 7. Hyperkalemia secondary to acute kidney injury, resolved. 8. Metabolic acidosis. 9. Chronic B12 deficiency anemia. 10. Chronic kidney disease stage III with congenital loss of one kidney. 11. Hypertension. 11. Recurrent depression and generalized anxiety disorder. DISCHARGE PLAN [facility] Impression and plan of care have been directed as dictated by the signing physician. Corina Phan nurse practitioner acting as scribe for signing physician. Patient Condition at Discharge: Good Plan - Discharge Summary Discharge Rx Participant: No New Discharge Prescriptions: New Cephalexin [Keflex] 250 mg PO TID #21 cap Continue Vit C/E/Zn/Coppr/Lutein/Zeaxan [Preservision Areds 2 Softgel] 2 cap PO DAILY amLODIPine [Norvasc] 10 mg PO DAILY Furosemide [Lasix] 40 mg PO DAILY Isosorbide Dinitrate 30 mg PO DAILY Losartan Potassium 100 mg PO DAILY Pantoprazole [Protonix] 40 mg PO AC-BID ALPRAZolam [Xanax] 0.5 mg PO HS ALPRAZolam [Xanax] 0.25 mg PO DAILY Dicyclomine [Bentyl] 20 mg PO QID PRN PRN Reason: CRAMPING Melatonin 5 mg PO HS Acetaminophen [Tylenol 8 Hour] 1,300 mg PO Q8H PRN PRN Reason: Pain Citalopram Hydrobromide [CeleXA] 40 mg PO DAILY DULoxetine HCL [Cymbalta] 20 mg PO DAILY polyethylene glycoL 3350 [Miralax] 17 gm PO DAILY Discharge Medication List Vit C/E/Zn/Coppr/Lutein/Zeaxan [Preservision Areds 2 Softgel] 2 cap PO DAILY 11/15/16 [History] amLODIPine [Norvasc] 10 mg PO DAILY 09/24/19 [History] Furosemide [Lasix] 40 mg PO DAILY 04/26/20 [History] Isosorbide Dinitrate 30 mg PO DAILY 04/26/20 [History] Losartan Potassium 100 mg PO DAILY 04/26/20 [History] Pantoprazole [Protonix] 40 mg PO AC-BID 04/26/20 [History] ALPRAZolam [Xanax] 0.25 mg PO DAILY 11/10/20 [History] ALPRAZolam [Xanax] 0.5 mg PO HS 11/10/20 [History] Citalopram Hydrobromide [CeleXA] 40 mg PO DAILY 11/10/20 [History] DULoxetine HCL [Cymbalta] 20 mg PO DAILY 11/10/20 [History] polyethylene glycoL 3350 [Miralax] 17 gm PO DAILY 11/10/20 [History] Acetaminophen [Tylenol 8 Hour] 1,300 mg PO Q8H PRN 12/18/20 [History] Dicyclomine [Bentyl] 20 mg PO QID PRN 12/18/20 [History] Melatonin 5 mg PO HS 12/18/20 [History] Cephalexin [Keflex] 250 mg PO TID #21 cap 12/22/20 [Rx] Follow up Appointment(s)/Referral(s): Ezio Cordon MD [Primary Care Provider] - 12/25/20 10:15 am (Appointment will be with JUNIOR LEGAL SECRETARY Erica Cedeño.) Zen Estrada MD [STAFF PHYSICIAN] - 01/01/21 10:15 am (Appointment will be with AUDIE Ellis.) Patient Instructions/Handouts: Urinary Tract Infection in Women (DC), Anemia (DC), Vitamin B12 Deficiency (GEN) Activity/Diet/Wound Care/Special Instructions: Patient has legal guardian - contact them at discharge Patient will return to [facility] at discharge unless discharged on or after 12/24/20 - if discharged on or after this date will be going to a room and board home - call legal guardian
--- NOTE | 2020-12-22 11:18 | P.PN ---
Subjective Progress Note Date: 12/22/20 Principal diagnosis: Symptomatic Anemia Patient seen and examined this am. PLan will be to have Iron IV and close monitoring CBC as outpatient. Anticipate the need for ongoing every 1-2 months parental iron infusions to maintain stable hemoglobin Objective - Vital Signs Vital signs: Vital Signs Temp 98.7 F 12/22/20 05:00 Pulse 64 12/22/20 05:00 Resp 16 12/22/20 05:00 BP 154/68 12/22/20 05:00 Pulse Ox 93 L 12/22/20 05:00 Intake & Output 12/21/20 12/22/20 12/22/20 18:59 06:59 18:59 Intake Total 200 Balance 200 Intake: IV 200 Other: Voiding Method Toilet Toilet Toilet # Voids 1 2 - Exam - Constitutional General appearance: cooperative - EENT Eyes: EOMI, poor dentition ENT: hard of hearing, NA/AT - Neck Neck: normal ROM - Respiratory Respiratory: bilateral: CTA - Cardiovascular Rhythm: regularly irregular - Gastrointestinal General gastrointestinal: normal bowel sounds, soft - Integumentary Integumentary: pale - Neurologic Neurologic: CNII-XII intact - Musculoskeletal Musculoskeletal: generalized weakness - Psychiatric Psychiatric: A&O x's 3, appropriate affect, intact judgment & insight - Labs CBC & Chem 7: 12/22/20 05:02 12/19/20 08:03 Labs: Abnormal Lab Results - Last 24 Hours (Table) 12/18/20 12/22/20 Range/Units 23:11 05:02 RBC 3.02 L (3.80-5.40) m/uL Hgb 8.6 L (11.4-16.0) gm/dL Hct 29.1 L (34.0-46.0) % MCHC 29.6 L (31.0-37.0) g/dL RDW 16.7 H (11.5-15.5) % Erythropoietin 114.42 H (2.00-30.00) mIU/mL Assessment and Plan (1) B12 deficiency anemia Current Visit: Yes Status: Acute Code(s): D51.9 - VITAMIN B12 DEFICIENCY ANEMIA, UNSPECIFIED SNOMED Code(s): 07881892 (2) AVM (arteriovenous malformation) of colon Current Visit: Yes Status: Acute Code(s): K55.20 - ANGIODYSPLASIA OF COLON WITHOUT HEMORRHAGE SNOMED Code(s): 254149719 (3) Anemia Current Visit: Yes Status: Acute Code(s): D64.9 - ANEMIA, UNSPECIFIED SNOMED Code(s): 603544020 (4) JEROME (acute kidney injury) Current Visit: No Status: Acute Code(s): N17.9 - ACUTE KIDNEY FAILURE, UNSPECIFIED SNOMED Code(s): 46776709 (5) Iron deficiency anemia Current Visit: No Status: Acute Code(s): D50.9 - IRON DEFICIENCY ANEMIA, UNSPECIFIED SNOMED Code(s): 20663676 Plan: Assessment and Recommendations: Acute on Chronic Microcytic anemia: - Secondary to Iron and B12 deficiency - Daily CBC - Parental Iron ongoing as outpatient. Will set up with outpatient RN, and set up appointment to follow-up 4 weeks from last Parental Iron infusion to re- assess for likely continued therapy. - Will also need continued B12 IM as outpatient Physician Attest: I have completed the full history and physical and agree with above dictation Dictated as a scribe. l
[2020-12-22 11:39] VITALS: BP 154/69; PULSE 69; TEMP 97.8
[2020-12-22 12:46] LABS: Albumin 3.08 g/dL (3.80-4.90); Gamma Globulin 0.56 g/dL (0.70-1.50)
--- NOTE | 2020-12-22 15:06 | P.PN ---
Subjective Progress Note Date: 12/22/20 Principal diagnosis: Anemia, GI bleed The patient was seen and examined sitting up at the bedside completely dressed and states she is being discharged. She is status post EGD with findings of multiple small bowel AVMs were treated. Her hemoglobin was stable today at 8.6. She denies any signs or symptoms of GI bleed. Objective - Vital Signs Vital signs: Vital Signs Temp 98.7 F 12/22/20 05:00 Pulse 64 12/22/20 05:00 Resp 16 12/22/20 05:00 BP 154/68 12/22/20 05:00 Pulse Ox 93 L 12/22/20 05:00 Intake & Output 12/21/20 12/22/20 12/22/20 18:59 06:59 18:59 Intake Total 200 Balance 200 Intake: IV 200 Other: Voiding Method Toilet Toilet Toilet # Voids 1 2 - Exam General appearance: The patient is alert, oriented, appears in no acute distress. HET: Head is normocephalic and atraumatic. Conjunctiva pink. Sclera anicteric. Neck: Supple without lymphadenopathy. Abdomen: Soft, nontender, nondistended with bowel sounds. No guarding or rigidity. Extremities: Normal skin color and turgor. No pedal edema Skin: No rashes, no jaundice Neurological: No focal deficits. Alert and oriented 3. - Labs CBC & Chem 7: 12/22/20 05:02 12/19/20 08:03 Labs: Abnormal Lab Results - Last 24 Hours (Table) 12/18/20 12/22/20 Range/Units 23:11 05:02 RBC 3.02 L (3.80-5.40) m/uL Hgb 8.6 L (11.4-16.0) gm/dL Hct 29.1 L (34.0-46.0) % MCHC 29.6 L (31.0-37.0) g/dL RDW 16.7 H (11.5-15.5) % Erythropoietin 114.42 H (2.00-30.00) mIU/mL Assessment and Plan (1) Anemia associated with acute blood loss Narrative/Plan: 80-year-old female with multiple medical comorbidities and multiple hospitalizations for anemia. Anemia is multifactorial secondary to vitamin B12 deficiency, iron deficiency and suspicion for chronic loss from small bowel angioectasia with multiple endoscopic evaluations in the past requiring argon plasma coagulation therapy for small bowel angioectasia. She is denying any signs or symptoms of GI bleeding at this time and does feel better status post transfusion of PRBCs. Status: Acute Code(s): D62 - ACUTE POSTHEMORRHAGIC ANEMIA SNOMED Code(s): 491924483 (2) B12 deficiency anemia Status: Acute Code(s): D51.9 - VITAMIN B12 DEFICIENCY ANEMIA, UNSPECIFIED SNOMED Code(s): 53944229 (3) Iron deficiency anemia Status: Acute Code(s): D50.9 - IRON DEFICIENCY ANEMIA, UNSPECIFIED SNOMED Code(s): 28579673 (4) Arteriovenous malformation small bowel Narrative/Plan: status post EGD, with findings of multiple AVMS treated Status: Acute Code(s): K55.20 - ANGIODYSPLASIA OF COLON WITHOUT HEMORRHAGE SNOMED Code(s): 696188305 Plan: 1. Diet as tolerated 2. CBC reviewed, hemoglobin stable 3. Patient is status post EGD 4. No further plans of endoscopic evaluation 5. Patient may be discharged home from a gastroenterology standpoint Dr. Estrada I agree with the dictator's note, documented as a scribe by Deepa Ryan.
== END 2020-12-22 12:30 | disposition home or self-care (01) | DRG 378 ==
LOC: EC 13:06 → 4SSUR 14:28 → 3SCARD 15:38 → 5NMEDONC 12-20 01:36
PROVIDERS: ADMIT Internal Medicine; ATTEND Internal Medicine
PROC: 30233N1 Transfusion of Nonautologous Red Blood Cells into Peripheral Vein, Percutaneous Approach (ICD-10-PCS; 2020-12-18)
PROC: 0W3P8ZZ Control Bleeding in Gastrointestinal Tract, Via Natural or Artificial Opening Endoscopic (ICD-10-PCS; principal; 2020-12-21 08:30)
DX: K31.811 Angiodysplasia of stomach and duodenum with bleeding (principal); D62 Acute posthemorrhagic anemia; E87.2 Acidosis; F33.9 Major depressive disorder, recurrent, unspecified; N17.9 Acute kidney failure, unspecified; N39.0 Urinary tract infection, site not specified; Q60.0 Renal agenesis, unilateral; K44.9 Diaphragmatic hernia without obstruction or gangrene; I12.9 Hypertensive chronic kidney disease with stage 1 through stage 4 chronic kidney disease, or unspecified chronic kidney disease; B96.20 Unspecified Escherichia coli [E. coli] as the cause of diseases classified elsewhere; K22.2 Esophageal obstruction; D50.9 Iron deficiency anemia, unspecified; D51.9 Vitamin B12 deficiency anemia, unspecified; E87.5 Hyperkalemia; F41.1 Generalized anxiety disorder; G25.81 Restless legs syndrome; H91.90 Unspecified hearing loss, unspecified ear; N18.30 Chronic kidney disease, stage 3 unspecified; Z79.899 Other long term (current) drug therapy; Z90.49 Acquired absence of other specified parts of digestive tract; Z98.890 Other specified postprocedural states; Z82.49 Family history of ischemic heart disease and other diseases of the circulatory system; Z91.81 History of falling
CPT/HCPCS: 36415; 43255; 71046; 80053; 81001; 82272; 82607; 82668; 82728; 82746; 82784; 83010; 83540; 83550; 83605; 83615; 83735; 83883; 84165; 84445; 84484; 85025; 85027; 85045; 85610; 85730; 86038; 86334; 86431; 86850; 86900; 86901; 86920; 87077; 87086; 87186; 93005; 94760; 99285

== ENCOUNTER 2021-04-23 11:33 | Emergency (ER) | payer MEDICARE, BC ==
[2021-04-23 13:00] VITALS: TEMP 98.1
[2021-04-23] MEDS ORDERED: ONDANSETRON 4 MG/2 ML VIAL IVP STA (15:19)
[2021-04-23] MEDS ORDERED: SODIUM CHLORIDE 0.9% 1,000 ML IV STA (15:19)
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
[2021-04-23 16:28] LABS: Calcium 8.8 mg/dL (8.4-10.2); Potassium 4.8 mmol/L (3.5-5.1)
[2021-04-23 16:51] LABS: HCT 39.3 % (34.0-46.0); HGB 12.9 gm/dL (11.4-16.0); MCH 30.5 pg (25.0-35.0); MCHC 32.9 g/dL (31.0-37.0); MCV 92.6 fL (80.0-100.0); Mean Platelet Volume 8.5; Platelet Count 230 k/uL (150-450); RBC 4.25 m/uL (3.80-5.40); RDW 14.3 % (11.5-15.5); WBC 6.9 k/uL (3.8-10.6)
--- NOTE | 2021-04-23 16:58 | XR ---
EXAMINATION TYPE: XR abdomen acute w cxr DATE OF EXAM: 04/23/2021 COMPARISON: 12/18/[address] abdomen pelvis 09/20/2019. HISTORY: Diarrhea, shortness of breath, weakness TECHNIQUE: Acute abdomen series with chest radiograph obtained. FINDINGS: Cardiomediastinal silhouette normal. Pulmonary vasculature normal. There is mild patchy airspace opac ity at the right lung base. No pleural effusion or pneumothorax. No acute displaced osseous normality . Upright and supine images of the abdomen and pelvis obtained. No pneumoperitoneum. Nonspecific bowel gas pattern. No significant air-fluid levels. Calcific densities overlying the left renal shadow like ly represent nephrolithiasis. Dextrocurvature of the lumbar spine. Degenerative changes of the hips. IMPRESSION: 1. Mild patchy airspace opacity at the right lung base may represent atelectasis or developing pneum onia. 2. Nonspecific bowel gas pattern. 3. Likely left nephrolithiasis.
[2021-04-23 17:07] LABS: Lymphocytes # (M) 0.76 k/uL (1.0-4.8); Monocytes # (M) 0.14 k/uL (0-1.0); Neutrophils % (M) 87 %; Nucleated Red Blood Cells 0 /100 WBC (0-0); Total Cells Counted 100
[2021-04-23] MEDS ORDERED: SODIUM CHLORIDE 0.9% 50 ML IVPB ONE (18:00)
[2021-04-23] MEDS ORDERED: BAMLANIVIMAB (EUA) 700 MG, ETESEVIMAB (EUA) 1,400 MG in SODIUM CHLORIDE 0.9% 50 ML IVPB ONE (18:15)
[2021-04-23 19:55] VITALS: BP 117/45; PULSE 67; RESP 20
== END 2021-04-23 21:05 | disposition home or self-care (01) ==
LOC: EC 11:33
DX: U07.1 COVID-19 (principal); E86.0 Dehydration; N17.9 Acute kidney failure, unspecified; K21.9 Gastro-esophageal reflux disease without esophagitis; I12.9 Hypertensive chronic kidney disease with stage 1 through stage 4 chronic kidney disease, or unspecified chronic kidney disease; N18.9 Chronic kidney disease, unspecified; F32.9 Major depressive disorder, single episode, unspecified; Z90.49 Acquired absence of other specified parts of digestive tract
CPT/HCPCS: 99284 ×2; 96375 ×2; 96361 ×3; 36415; 93005; 80048; 83605; 83735; 85025; 87636; 74022; M0245; J2405; J3490; 96374

== ENCOUNTER 2021-04-27 16:28 | Emergency (ER) | payer MEDICARE, BC ==
[2021-04-27 16:54] VITALS: TEMP 97.7
[2021-04-27] MEDS ORDERED: SODIUM CHLORIDE 0.9% 1,000 ML IV ONE (17:08)
[2021-04-27 17:57] LABS: Appearance,Urine Cloudy (Clear); Bacteria,Urine Many /hpf; Bilirubin,Urine Negative (Negative); Blood,Urine Negative (Negative); Color,Urine Light Yellow; Glucose,Urine (UA) Negative (Negative); Hyaline Casts,Urine 4 /lpf (0-2); Ketones,Urine Negative (Negative); Leukocyte Esterase,Urine Moderate (Negative); Mucus,Urine Rare /hpf; Nitrite,Urine Negative (Negative); PH, Urine 5.5 (5.0-8.0); Protein,Urine Trace (Negative); RBC,Urine 2 /hpf (0-5); Specific Gravity,Urine 1.009 (1.001-1.035); Squamous Epithelial Cell,Urine 2 /hpf (0-4); Urobilinogen,Urine <2.0 mg/dL (<2.0); WBC,Urine 27 /hpf (0-5)
[2021-04-27 17:58] LABS: Albumin 3.8 g/dL (3.5-5.0); Calcium 9.2 mg/dL (8.4-10.2); Magnesium 2.2 mg/dL (1.6-2.3); Total Bilirubin 0.6 mg/dL (0.2-1.3); Total Protein 7.2 g/dL (6.3-8.2)
[2021-04-27 18:25] LABS: HCT 40.8 % (34.0-46.0); HGB 13.4 gm/dL (11.4-16.0); MCH 30.5 pg (25.0-35.0); MCV 92.4 fL (80.0-100.0); Platelet Count 297 k/uL (150-450); RBC 4.41 m/uL (3.80-5.40); RDW 14.4 % (11.5-15.5); WBC 7.9 k/uL (3.8-10.6)
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
[2021-04-27] MEDS ORDERED: cefTRIAXone IN SWFI 1,000 MG/10 ML SYRINGE IVP STA (18:57)
[2021-04-27 19:06] LABS: Basophils # (M) 0.08 k/uL (0-0.2); Lymphocytes # (M) 0.55 k/uL (1.0-4.8); Monocytes # (M) 0.47 k/uL (0-1.0); Myelocytes # (M) 0.08 k/uL (0); Myelocytes % 1 %; Neutrophils # (M) 6.87 k/uL (1.3-7.7); Neutrophils % (M) 87 %; Nucleated Red Blood Cells 0 /100 WBC (0-0); Total Cells Counted 200
[2021-04-27 19:10] LABS: Poikilocytosis (M) Present
[2021-04-27 20:53] VITALS: BP 136/78; PULSE 58; RESP 18
== END 2021-04-27 20:54 | disposition home or self-care (01) ==
LOC: EC 16:28
DX: U07.1 COVID-19 (principal); I12.9 Hypertensive chronic kidney disease with stage 1 through stage 4 chronic kidney disease, or unspecified chronic kidney disease; N18.9 Chronic kidney disease, unspecified; H91.90 Unspecified hearing loss, unspecified ear; N39.0 Urinary tract infection, site not specified; K21.9 Gastro-esophageal reflux disease without esophagitis; Z79.899 Other long term (current) drug therapy
CPT/HCPCS: 36415; 80053; 83735; 85025; 81001; 87086; 87077; 87186; 99283; 96374; J0696

== ENCOUNTER 2021-11-22 08:14 | Emergency (ER) | payer MEDICARE, BC ==
[2021-11-22 08:33] VITALS: TEMP 98
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
[2021-11-22 09:37] LABS: Appearance,Urine Turbid (Clear); Bacteria,Urine Moderate /hpf; Bilirubin,Urine Negative (Negative); Blood,Urine Small (Negative); Color,Urine Yellow; Glucose,Urine (UA) Negative (Negative); Hyaline Casts,Urine 6 /lpf (0-2); Ketones,Urine Negative (Negative); Leukocyte Esterase,Urine Large (Negative); Mucus,Urine Rare /hpf; Nitrite,Urine Positive (Negative); PH, Urine 5.5 (5.0-8.0); Protein,Urine 1+ (Negative); RBC,Urine 5 /hpf (0-5); Specific Gravity,Urine 1.015 (1.001-1.035); Squamous Epithelial Cell,Urine 22 /hpf (0-4); Urobilinogen,Urine <2.0 mg/dL (<2.0); WBC,Urine >182 /hpf (0-5)
[2021-11-22 09:41] LABS: HCT 29.3 % (34.0-46.0); HGB 8.8 gm/dL (11.4-16.0); Hypochromasia Marked; MCH 27.6 pg (25.0-35.0); MCHC 30.1 g/dL (31.0-37.0); MCV 91.7 fL (80.0-100.0); Mean Platelet Volume 7.3; Platelet Count 445 k/uL (150-450); Poikilocytosis Slight; RBC 3.19 m/uL (3.80-5.40); RDW 15.5 % (11.5-15.5); WBC 6.2 k/uL (3.8-10.6)
[2021-11-22 09:47] LABS: Albumin 4.3 g/dL (3.5-5.0); Calcium 8.8 mg/dL (8.4-10.2); Magnesium 1.9 mg/dL (1.6-2.3); Total Bilirubin 0.7 mg/dL (0.2-1.3); Total Protein 7.6 g/dL (6.3-8.2)
[2021-11-22 09:50] LABS: Potassium 5.1 mmol/L (3.5-5.1)
[2021-11-22] MEDS ORDERED: cefTRIAXone IN SWFI 1,000 MG/10 ML SYRINGE IVP STA ×2 (10:08→10:09)
[2021-11-22 10:23] LABS: Eosinophils # (M) 0.62 k/uL (0-0.7); Monocytes # (M) 0.56 k/uL (0-1.0); Neutrophils # (M) 4.53 k/uL (1.3-7.7); Neutrophils % (M) 73 %; Nucleated Red Blood Cells 0 /100 WBC (0-0); Total Cells Counted 100
[2021-11-22 11:38] VITALS: BP 149/55; PULSE 72; RESP 18
== END 2021-11-22 11:56 | disposition home or self-care (01) ==
LOC: EC 08:14
DX: D64.9 Anemia, unspecified (principal); N39.0 Urinary tract infection, site not specified; I10 Essential (primary) hypertension; K21.9 Gastro-esophageal reflux disease without esophagitis; Z79.83 Long term (current) use of bisphosphonates
CPT/HCPCS: 36415; 80053; 83735; 85025; 81001; 87086; 99283; 96374; J0696; 87077; 87186

== ENCOUNTER 2022-05-05 11:54 | Inpatient (IN) | payer MEDICARE, BC ==
[2022-05-05 16:48] LABS: Albumin 4.1 g/dL (3.5-5.0); Calcium 8.7 mg/dL (8.4-10.2); Potassium 4.9 mmol/L (3.5-5.1); Total Bilirubin 0.2 mg/dL (0.2-1.3); Total Protein 6.7 g/dL (6.3-8.2)
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
[2022-05-05 17:00] LABS: Anisocytosis Slight; Hypochromasia Marked; MCH 23.4 pg (25.0-35.0); MCHC 27.5 g/dL (31.0-37.0); MCV 85.1 fL (80.0-100.0); Mean Platelet Volume 7.7; Microcytosis Slight; Platelet Count 602 k/uL (150-450); Poikilocytosis Moderate; RBC 2.22 m/uL (3.80-5.40); WBC 12.2 k/uL (3.8-10.6)
[2022-05-05 17:01] LABS: HGB 5.2 gm/dL (11.4-16.0)
[2022-05-05 17:02] LABS: HCT 18.9 % (34.0-46.0)
--- NOTE | 2022-05-05 17:05 | XR ---
EXAMINATION TYPE: XR abdomen complete w decub DATE OF EXAM: 05/05/2022 4:53 PM INDICATION: Patient age:Female; 81 years old; Reason for study: Abdominal pain, constipation; COMPARISON: None. TECHNIQUE: Two views of the abdomen were obtained. FINDINGS: The bowel gas pattern is nonspecific without dilated loops of small or large bowel. There i s no evidence for organomegaly or pneumoperitoneum. The osseous structures are intact. No abnormal calcifications are present. Fecal material and gas are demonstrated throughout the colon and rectum. IMPRESSION: Nonspecific bowel gas pattern without radiographic evidence for acute process.
[2022-05-05 17:24] LABS: Lymphocytes # (M) 0.85 k/uL (1.0-4.8); Monocytes # (M) 0.37 k/uL (0-1.0); Neutrophils # (M) 10.98 k/uL (1.3-7.7); Neutrophils % (M) 90 %; Nucleated Red Blood Cells 0 /100 WBC (0-0); Total Cells Counted 100
--- NOTE | 2022-05-05 18:31 | CT ---
EXAMINATION TYPE: CT abdomen pelvis wo con CT DLP: 523.8 mGycm, Automated exposure control for dose reduction was used. DATE OF EXAM: 05/05/2022 6:05 PM COMPARISON: CT abdomen pelvis most recent from 09/20/2019 CLINICAL INDICATION:Female, 81 years old with history of Epigastric pain, hgb 5.2; Abdominal Pain TECHNIQUE: Axial CT of the abdomen and pelvis. Sagittal and coronal reformats were created on a Data [employer] workstation. Contrast used: None Oral contrast used: without Oral Contrast FINDINGS: LOWER CHEST: The heart is mildly enlarged for size. Coronary artery atherosclerosis. ABDOMEN LIVER: Unremarkable GALLBLADDER AND BILE DUCTS: The gallbladder appears surgically absent. PANCREAS: Unremarkable. SPLEEN: Unremarkable. ADRENAL GLANDS: Unremarkable. KIDNEYS AND URETERS: Nonobstructing left renal calculi. The right kidney is severely atrophic. No alejo dence of hydronephrosis. There is a nodular contour to the left kidney. PELVIS BLADDER: Unremarkable REPRODUCTIVE: Unremarkable. ABDOMEN & PELVIS STOMACH AND BOWEL: No evidence of bowel obstruction. Moderate hiatal hernia. PERITONEUM: No evidence of pneumoperitoneum or free fluid. VASCULATURE: No evidence of aortic aneurysm. Atherosclerosis of the arterial vasculature. MUSCULOSKELETAL: No acute osseous abnormalities, multilevel disc degeneration changes. Disc bulging a t L4-L5. LYMPH NODES: No gross evidence for lymphadenopathy. SOFT TISSUE/ABDOMINAL WALL: Ventral wall fat-containing hernia in the upper abdomen. This measures up to 9 mm at the neck. IMPRESSION: 1. Epigastric region ventral wall fat-containing hernia in the upper abdomen. 2. Moderate hiatal hernia. 3. Severely atrophic right kidney. 4. Nodular contour to left kidney 5. L4-L5 disc bulge.
[2022-05-05] MEDS ORDERED: NALOXONE 0.4 MG/ML 1 ML VIAL IV PRN (19:06)
[2022-05-05] MEDS: SODIUM CHLORIDE 0.9% 1,000 ML IV SCH (19:15)
[2022-05-06 02:46] LABS: Appearance,Urine Cloudy (Clear); Bacteria,Urine Occasional /hpf; Bilirubin,Urine Negative (Negative); Blood,Urine Trace (Negative); Color,Urine Yellow; Glucose,Urine (UA) Negative (Negative); Ketones,Urine Negative (Negative); Leukocyte Esterase,Urine Large (Negative); Nitrite,Urine Negative (Negative); Protein,Urine 1+ (Negative); RBC,Urine 2 /hpf (0-5); Specific Gravity,Urine 1.014 (1.001-1.035); Squamous Epithelial Cell,Urine 5 /hpf (0-4); Urobilinogen,Urine <2.0 mg/dL (<2.0); WBC,Urine 57 /hpf (0-5)
[2022-05-06 06:59] LABS: Calcium 8.4 mg/dL (8.4-10.2); Potassium 4.8 mmol/L (3.5-5.1)
[2022-05-06 07:32] LABS: Anisocytosis Slight; Hypochromasia Marked; MCH 25.4 pg (25.0-35.0); MCHC 29.9 g/dL (31.0-37.0); MCV 85.2 fL (80.0-100.0); Mean Platelet Volume 8.2; Platelet Count 481 k/uL (150-450); Poikilocytosis Marked; RBC 3.28 m/uL (3.80-5.40)
[2022-05-06 07:34] LABS: HGB 8.3 gm/dL (11.4-16.0)
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
[2022-05-06] MEDS: PANTOPRAZOLE 40 MG/10 ML VIAL IVP SCH (08:44)
[2022-05-06] MEDS: SODIUM CHLORIDE 0.9% 1,000 ML IV SCH (08:44)
[2022-05-06 09:04] LABS: Basophils # (M) 0.09 k/uL (0-0.2); Eosinophils # (M) 0.09 k/uL (0-0.7); Lymphocytes # (M) 0.36 k/uL (1.0-4.8); Monocytes # (M) 0.63 k/uL (0-1.0); Neutrophils # (M) 7.83 k/uL (1.3-7.7); Neutrophils % (M) 87 %; Nucleated Red Blood Cells 0 /100 WBC (0-0); Total Cells Counted 100
[2022-05-06 09:05] LABS: Mixed Population RBC Present
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
[2022-05-06] MEDS ORDERED: ACETAMINOPHEN TAB 325 MG TAB PO PRN (17:14)
[2022-05-06] MEDS ORDERED: FUROSEMIDE 10 MG/ML 2 ML VIAL IV STA ×2 (17:14→17:23)
[2022-05-06] MEDS: amLODIPine 10 MG TAB PO SCH (17:32)
[2022-05-06 19:00] LABS: % Iron Saturation 2.35 (12.00-45.00); Ferritin 12.1 ng/mL (10.0-291.0); Iron 11 ug/dL (50-170); Total Iron Binding Capacity 459 ug/dL (228-460)
[2022-05-06 19:30] LABS: Vitamin B12 >3600.0 pg/mL (200.0-944.0)
[2022-05-06] MEDS: ALPRAZolam 0.25 MG TAB PO SCH (20:00)
[2022-05-06] MEDS: ISOSORBIDE DINITRATE 10 MG TAB PO SCH (20:00)
[2022-05-06] MEDS: traZODone HCL 100 MG TAB PO SCH (20:03)
[2022-05-07] MEDS: SODIUM CHLORIDE 0.9% 1,000 ML IV SCH ×2 (00:59→09:48)
[2022-05-07] MEDS: FERROUS SULFATE 325 MG TAB PO SCH ×3 (05:28→16:00)
[2022-05-07 07:34] LABS: Anisocytosis Slight; HGB 8.3 gm/dL (11.4-16.0); Hypochromasia Marked; MCH 25.4 pg (25.0-35.0); MCHC 29.7 g/dL (31.0-37.0); MCV 85.5 fL (80.0-100.0); Platelet Count 533 k/uL (150-450); Poikilocytosis Marked; RBC 3.27 m/uL (3.80-5.40); WBC 7.2 k/uL (3.8-10.6)
[2022-05-07 07:46] LABS: Calcium 8.4 mg/dL (8.4-10.2); Potassium 4.4 mmol/L (3.5-5.1)
[2022-05-07] MEDS: PANTOPRAZOLE 40 MG/10 ML VIAL IVP SCH (09:48)
--- NOTE | 2022-05-07 12:36 | P.PN ---
Subjective This is a pleasant 81 years old female with multiple medical problems as below, pt is hard of hearing . Her PCP is Dr. Mac and her director of programming is Dr. Dubois for low iron she states she came to the hospital because she was sick to her stomack with pain and tenderness in the epigastric area, about 9/1 in severity now is 0// , her pain was of one day duration but she has similar pain about two weeks ago. she denies vomiting but had nausea, usually she is constipated but yesterday she had a bowel movement which was black which is unusual for her, usually it is brown in color . she denies any recent use of pain medications like NSAIDs no chest pain or dyspnea, no urinary problems, no headache or weakness or numbness, Pt arrives in [facility] for generalized weakness, epigastric pain and black stool. pt is pale in triage. pt is unable to walk more then 10 feet without feeling weak and feeling like shes going to pass out. Pt was seen two weeks ago and was given blood transfusion (outpatient). chronic bleeding She denies smoking alcohol or illicit drugs patient states also she is generally weak especially when she walks Vitals are stable Hemoglobin on admission is 5.2, hematocrit 18.9. WBC is 12.2, Creatinine is elevated 2.4, baseline is 1.2-1.5 Possible distal is positive. CT of the abdomen: Epigastric ventral wall hernia, fat content.. Moderate hiatal hernia was severely atrophic right kidney. Nodular contour to the left kidney. L4-L5 disc bulge. KUB is negative for acute process Patient is on normal saline at 75 mL/h Repeat hemoglobin this morning 8.3. The lips back to normal and 0.0. Platelet improved down to 481. Also creatinine trending down 2.2 05/07/2022 Patient feels less weak today, she reports no more bleeding per rectum. Occult blood in stool is positive however her vitals and hemoglobin are stable, hemoglobin at 8.3 which is similar to yesterday and she is currently on IV Protonix and IV fluids and plan for EGD today with GI team Acute kidney injury improvement and creatinine down to 1.9. Patient still have some urinary symptoms and she remains and ceftriaxone for UTI. Urine culture is pending. Other than that she denies any other complaints like no chest pain or dyspnea. Vitals are stable, she is saturating 90 1-0 chromic care Objective - Vital Signs Vital signs: Vital Signs Temp 98.6 F 05/07/22 03:11 Pulse 78 05/07/22 11:13 Resp 16 05/07/22 11:13 BP 167/71 05/07/22 11:13 Pulse Ox 91 L 05/07/22 11:13 FiO2 Intake & Output 05/06/22 05/07/22 05/07/22 18:59 06:59 18:59 Intake Total 1408 Output Total 600 500 Balance 808 -500 Weight 65.771 kg 67.9 kg Intake: Intake, IV Titration 50 Amount cefTRIAXone 1 gm In 50 Sodium Chloride 0.9% 50 ml @ 100 mls/hr IVPB Q24HR [facility] Rx#:[id number] Oral 858 Other 500 Output: Urine 600 500 Other: Voiding Method External Catheter Bedside Commode Bedside Commode - Exam GENERAL: The patient is alert and oriented x3, not in any acute distress. Well developed, well nourished. HEENT: Pupils are round and equally reacting to light. EOMI. No scleral icterus. No conjunctival pallor. Normocephalic, atraumatic. No pharyngeal erythema. No thyromegaly. CARDIOVASCULAR: S1 and S2 present. No murmurs, rubs, or gallops. PULMONARY: Chest is clear to auscultation, no wheezing or crackles. ABDOMEN: Soft, nontender, nondistended, normoactive bowel sounds. No palpable organomegaly. MUSCULOSKELETAL: No joint swelling or deformity. EXTREMITIES: No cyanosis, clubbing, or pedal edema. NEUROLOGICAL: Gross neurological examination did not reveal any focal deficits. SKIN: No rashes. no petechiae. - Labs CBC & Chem 7: 05/07/22 06:31 05/07/22 06:31 Labs: Abnormal Lab Results - Last 24 Hours (Table) 05/05/22 05/07/22 05/07/22 Range/Units 16:29 06:31 06:31 RBC 3.27 L (3.80-5.40) m/uL Hgb 8.3 L (11.4-16.0) gm/dL Hct 28.0 L (34.0-46.0) % MCHC 29.7 L (31.0-37.0) g/dL RDW 18.0 H (11.5-15.5) % Plt Count 533 H (150-450) k/uL Chloride 113 H (98-107) mmol/L BUN 32 H (7-17) mg/dL Creatinine 1.93 H (0.52-1.04) mg/dL Iron 11 L (50-170) ug/dL % Saturation 2.35 L (12.00-45.00) Vitamin B12 >3600.0 H (200.0-944.0) pg/mL Microbiology - Last 24 Hours (Table) 05/06/22 02:07 Urine Culture - Preliminary Urine,Voided Assessment and Plan Assessment: Acute on chronic GI bleed Acute on chronic kidney disease stage III Abnormal UA suspicious for infection causing weakness versus asymptomatic bacteriuria Hypertension Chronic kidney disease stage III Congenital unilateral kidney History of depression History of GERD/Reflux, Hearing difficulty Plan: Continue with IV hydration Continue with Protonix Transfuse PRBCs/blood when hemoglobin less than 7 Continue monitoring for active gi bleed, keep monitoring hemoglobin and vitals GI team consult with the plan for EGD today start ceftriaxone and follow-up urine culture Labs and medication were reviewed.. Continue same treatment. Continue with symptomatic treatment. Resume home medication. Monitor lytes and vitals. DVT and GI prophylaxis. Further recommendations as per clinical course of the patient DVT prophylaxis: no heparin for gi bleed GI Prophylaxis: Ppi Prognosis is guarded
[2022-05-07] MEDS ORDERED: SODIUM CHLORIDE 0.9% 500 ML 500 ML IV ONE (14:56)
[2022-05-07] MEDS ORDERED: PROPOFOL 10 MG/ML 20 ML VIAL IV ONE (14:56)
[2022-05-07] MEDS ORDERED: LIDOCAINE 2% INJ 20 MG/ML (2 ML VIAL) ONE (14:56)
--- NOTE | 2022-05-07 15:41 | P.PCN ---
Date of Procedure: 05/07/22 Procedure(s) Performed: BRIEF HISTORY: Patient is a 81-year-old, pleasant, white female with the hospital with severe symptomatic anemia and hemoglobin of 5.4 g/dL. She is been having some Black tarry stools. She had an upper endoscopy done by Dr. 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 PROCEDURE PERFORMED: Esophagogastroduodenoscopy/push enteroscopy with cautery. PREOPERATIVE DIAGNOSIS: Anemia and black tarry stools. IV sedation per anesthesia. PROCEDURE: After informed consent was obtained, the patient was brought into the endoscopy unit. IV sedation was administered by Anesthesia under continuous monitoring. Initially the Olympus GIF-140 video pediatric colonoscopy endoscope was inserted into the mouth. Esophagus intubated without any difficulty. It was gradually advanced into the stomach and duodenum and carefully examined. The scope was advanced into the proximal jejunum. In the distal duodenum and proximal jejunum the mid 80s 7-8 arteriovenous malformation to identify 2 of them with active oozing which was cauterized using a gold probe and good h emostasis was achieved. The bulb of the duodenum appeared normal. The scope at this time was withdrawn to the stomach, adequately insufflated with air, and upon careful examination, mucosa of the antrum, body, cardia and the fundus appeared normal. The scope was then withdrawn into the esophagus. The GE junction was located at 39 cm from the incisors. Small hiatal hernia noted. The esophagus appeared normal. There were no erosions or ulcerations seen and the patient tolerated the procedure well. IMPRESSION: 1. 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 2. Hiatal hernia. RECOMMENDATIONS: The findings of this examination were discussed with the patient is a family. She'll be on a clear liquid diet today. Advance diet as tolerated tomorrow and if the hemoglobin is stable she can be discharged to. Continue with iron supplements. Follow up in office in 3-4 weeks.
[2022-05-07] MEDS: FUROSEMIDE 20 MG TAB PO SCH (15:59)
[2022-05-07] MEDS: ISOSORBIDE DINITRATE 10 MG TAB PO SCH (16:00)
[2022-05-07] MEDS: amLODIPine 10 MG TAB PO SCH (16:00)
[2022-05-07] MEDS: traZODone HCL 100 MG TAB PO SCH (20:04)
[2022-05-07] MEDS: ALPRAZolam 0.25 MG TAB PO SCH (20:04)
[2022-05-08] MEDS: SODIUM CHLORIDE 0.9% 1,000 ML IV SCH (06:00)
[2022-05-08] MEDS: FERROUS SULFATE 325 MG TAB PO SCH ×2 (06:05→11:42)
[2022-05-08] MEDS: amLODIPine 10 MG TAB PO SCH (08:22)
[2022-05-08] MEDS: PANTOPRAZOLE 40 MG/10 ML VIAL IVP SCH (08:22)
[2022-05-08] MEDS: FUROSEMIDE 20 MG TAB PO SCH (08:22)
[2022-05-08] MEDS: ISOSORBIDE DINITRATE 10 MG TAB PO SCH (08:22)
[2022-05-08 10:52] VITALS: TEMP 98.1
[2022-05-08 11:24] LABS: Calcium 8.4 mg/dL (8.4-10.2); Potassium 4.3 mmol/L (3.5-5.1)
[2022-05-08 11:25] LABS: Anisocytosis Slight; HCT 27.7 % (34.0-46.0); HGB 8.2 gm/dL (11.4-16.0); Hypochromasia Marked; MCH 25.4 pg (25.0-35.0); MCHC 29.6 g/dL (31.0-37.0); MCV 85.7 fL (80.0-100.0); Mean Platelet Volume 8.3; Platelet Count 553 k/uL (150-450); Poikilocytosis Moderate; RBC 3.23 m/uL (3.80-5.40); RDW 17.8 % (11.5-15.5); WBC 9.4 k/uL (3.8-10.6)
[2022-05-08 12:34] VITALS: BP 147/61; PULSE 81; RESP 17
[2022-05-08 14:01] LABS: Eosinophils # (M) 0.47 k/uL (0-0.7); Lymphocytes # (M) 0.66 k/uL (1.0-4.8); Monocytes # (M) 0.56 k/uL (0-1.0); Neutrophils # (M) 7.71 k/uL (1.3-7.7); Neutrophils % (M) 82 %; Nucleated Red Blood Cells 0 /100 WBC (0-0); Total Cells Counted 100
--- NOTE | 2022-05-08 14:06 | P.DS ---
Providers Date of admission: 05/05/22 19:06 Expected date of discharge: 05/08/22 Attending physician: Dann Fernandez Consults: 05/05/22 19:06 Consult Physician Routine Consulting Provider: Estella Corrigan Consult Reason/Comments: GI bleed with hgb 5.2 Do you want consulting provider notified?: Yes, Notify in am Primary care physician: [place] Hospital Course: Discharge diagnoses; Acute on chronic GI bleed Acute on chronic kidney disease stage III UTI Hypertension Chronic kidney disease stage III Congenital unilateral kidney History of depression History of GERD/Reflux, Hearing difficulty Hospital course; This is a pleasant 81 years old female with multiple medical problems as below, pt is hard of hearing . Her PCP is Dr. Mac and her director business management is Dr. Dubois for low iron she states she came to the hospital because she was sick to her stomack with pain and tenderness in the epigastric area, about 9/1 in severity now is 0/1/ , her pain was of one day duration but she has similar pain about two weeks ago. she denies vomiting but had nausea, usually she is constipated but yesterday she had a bowel movement which was black which is unusual for her, usually it is brown in color . she denies any recent use of pain medications like NSAIDs no chest pain or dyspnea, no urinary problems, no headache or weakness or numbness, Pt arrives in EC for generalized weakness, epigastric pain and black stool. pt is pale in triage. pt is unable to walk more then 10 feet without feeling weak and feeling like shes going to pass out. Pt was seen two weeks ago and was given blood transfusion (outpatient). chronic bleeding She denies smoking alcohol or illicit drugs patient states also she is generally weak especially when she walks Vitals are stable Hemoglobin on admission is 5.2, hematocrit 18.9. WBC is 12.2, Creatinine is elevated 2.4, baseline is 1.2-1.5 Possible distal is positive. CT of the abdomen: Epigastric ventral wall hernia, fat content.. Moderate hiatal hernia was severely atrophic right kidney. Nodular contour to the left kidney. L4-L5 disc bulge. KUB is negative for acute process Patient is on normal saline at 75 mL/h Repeat hemoglobin this morning 8.3. The lips back to normal and 0.0. Platelet improved down to 481. Also creatinine trending down 2.2 Patient was seen by GI, they recommended doing EGD. 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 Hiatal hernia. /. Repeat Hemoglobin done this morning remained stable. Patient currently tolerating diet. Patient being discharged in stable condition PHYSICAL EXAMINATION: GENERAL: The patient is alert and oriented x3, not in any acute distress. Well developed, well nourished. HEENT: Pupils are round and equally reacting to light. EOMI. No scleral icterus. No conjunctival pallor. Normocephalic, atraumatic. No pharyngeal erythema. No thyromegaly. CARDIOVASCULAR: S1 and S2 present. No murmurs, rubs, or gallops. PULMONARY: Chest is clear to auscultation, no wheezing or crackles. ABDOMEN: Soft, nontender, nondistended, normoactive bowel sounds. No palpable organomegaly. MUSCULOSKELETAL: No joint swelling or deformity. EXTREMITIES: No cyanosis, clubbing, or pedal edema. NEUROLOGICAL: Gross neurological examination did not reveal any focal deficits. SKIN: No rashes. Patient Condition at Discharge: Stable Plan - Discharge Summary Discharge Rx Participant: No New Discharge Prescriptions: New Ferrous Sulfate [Iron (65 MG Elemental)] 325 mg PO TID-W/MEALS #90 tab cephALEXin [Keflex] 750 mg PO Q12HR 3 Days #6 cap Continue amLODIPine [Norvasc] 10 mg PO DAILY Isosorbide Dinitrate 30 mg PO DAILY Pantoprazole [Protonix] 40 mg PO BID ALPRAZolam [Xanax] 0.5 mg PO HS Furosemide [Lasix] 20 mg PO DAILY rOPINIRole HCL [Requip] 0.5 mg PO HS DULoxetine HCL [Cymbalta] 60 mg PO DAILY Citalopram Hydrobromide [CeleXA] 40 mg PO DAILY Sennosides/Docusate Sodium [Senna Plus 8.6-50 mg Tablet] 2 tab PO DAILY traZODone HCL 100 mg PO HS Cyanocobalamin (Vitamin B-12) [Vitamin B-12] 1,000 mcg PO DAILY Famotidine [Pepcid] 20 mg PO DAILY Ascorbic Acid [Vitamin C] 1,000 mg PO DAILY Discontinued Losartan Potassium 100 mg PO DAILY Discharge Medication List amLODIPine [Norvasc] 10 mg PO DAILY 09/24/19 [History] Isosorbide Dinitrate 30 mg PO DAILY 04/26/20 [History] Pantoprazole [Protonix] 40 mg PO BID 04/26/20 [History] ALPRAZolam [Xanax] 0.5 mg PO HS 11/10/20 [History] Citalopram Hydrobromide [CeleXA] 40 mg PO DAILY 11/10/20 [History] Furosemide [Lasix] 20 mg PO DAILY 04/23/21 [History] Ascorbic Acid [Vitamin C] 1,000 mg PO DAILY 05/06/22 [History] Cyanocobalamin (Vitamin B-12) [Vitamin B-12] 1,000 mcg PO DAILY 05/06/22 [History] DULoxetine HCL [Cymbalta] 60 mg PO DAILY 05/06/22 [History] Famotidine [Pepcid] 20 mg PO DAILY 05/06/22 [History] Sennosides/Docusate Sodium [Senna Plus 8.6-50 mg Tablet] 2 tab PO DAILY 05/06/22 [History] rOPINIRole HCL [Requip] 0.5 mg PO HS 05/06/22 [History] traZODone HCL 100 mg PO HS 05/06/22 [History] Ferrous Sulfate [Iron (65 MG Elemental)] 325 mg PO TID-W/MEALS #90 tab 05/08/22 [Rx] cephALEXin [Keflex] 750 mg PO Q12HR 3 Days #6 cap 05/08/22 [Rx] Follow up Appointment(s)/Referral(s): Ezio Cordon MD [Primary Care Provider] - 1-2 days Ambulatory/Diagnostic Orders: Basic Metabolic Panel [LAB.AMB] Time Frame: 1 Week, Facility: [facility], Location: [facility] Complete Blood Count w/diff [LAB.AMB] Location: None Selected Discharge Disposition: HOME SELF-CARE
== END 2022-05-08 16:02 | disposition home or self-care (01) | DRG 378 ==
LOC: EC 11:54 → 3SCARD 19:06
PROVIDERS: ADMIT Internal Medicine; ATTEND Internal Medicine
PROC: 0W3P8ZZ Control Bleeding in Gastrointestinal Tract, Via Natural or Artificial Opening Endoscopic (ICD-10-PCS; principal; 2022-05-07 12:55)
DX: K31.811 Angiodysplasia of stomach and duodenum with bleeding (principal); N17.9 Acute kidney failure, unspecified; N39.0 Urinary tract infection, site not specified; D50.0 Iron deficiency anemia secondary to blood loss (chronic); D51.9 Vitamin B12 deficiency anemia, unspecified; I12.9 Hypertensive chronic kidney disease with stage 1 through stage 4 chronic kidney disease, or unspecified chronic kidney disease; N18.30 Chronic kidney disease, stage 3 unspecified; B96.1 Klebsiella pneumoniae [K. pneumoniae] as the cause of diseases classified elsewhere; K21.9 Gastro-esophageal reflux disease without esophagitis; F32.A Depression, unspecified; G25.81 Restless legs syndrome; K44.9 Diaphragmatic hernia without obstruction or gangrene; Z90.49 Acquired absence of other specified parts of digestive tract; H91.90 Unspecified hearing loss, unspecified ear; K59.00 Constipation, unspecified; M51.36 Other intervertebral disc degeneration, lumbar region; Z79.899 Other long term (current) drug therapy; Z87.891 Personal history of nicotine dependence; Z91.81 History of falling
CPT/HCPCS: 36415; 36430; 43255; 74021; 74176; 80048; 80053; 81001; 82272; 82607; 82728; 83540; 83550; 83690; 84145; 85025; 85027; 86850; 86900; 86901; 86902; 86920; 87077; 87086; 87186; 96365; 96375; 99285

== ENCOUNTER 2022-05-19 12:32 | Inpatient (IN) | payer MEDICARE, BC, OTHER ==
[2022-05-19] MEDS ORDERED: PANTOPRAZOLE 40 MG/10 ML VIAL IVP STA (15:28)
[2022-05-19] MEDS ORDERED: SODIUM CHLORIDE 0.9% 1,000 ML IV STA (15:28)
[2022-05-19 16:28] LABS: Anisocytosis Slight; HCT 22.1 % (34.0-46.0); Hypochromasia Marked; MCH 26.5 pg (25.0-35.0); MCHC 29.8 g/dL (31.0-37.0); MCV 88.9 fL (80.0-100.0); Mean Platelet Volume 7.7; Platelet Count 421 k/uL (150-450); Poikilocytosis Slight; RBC 2.49 m/uL (3.80-5.40); RDW 18.5 % (11.5-15.5); WBC 9.6 k/uL (3.8-10.6)
[2022-05-19 16:39] LABS: ALT 15 U/L (4-34); AST 15 U/L (14-36); African American GFR (CKD) 18 (>60 ml/min/1.73 sqM); Albumin 3.6 g/dL (3.5-5.0); Alkaline Phosphatase 85 U/L (38-126); Anion Gap 8 mmol/L; Blood Urea Nitrogen 73 mg/dL (7-17); Calcium 8.2 mg/dL (8.4-10.2); Carbon Dioxide 19 mmol/L (22-30); Chloride 112 mmol/L (98-107); Glucose 137 mg/dL (74-99); Non-African American GFR(CKD) 15 (>60 ml/min/1.73 sqM); Potassium 4.6 mmol/L (3.5-5.1); Sodium 139 mmol/L (137-145); Total Bilirubin <0.1 mg/dL (0.2-1.3); Total Protein 6.4 g/dL (6.3-8.2)
[2022-05-19 16:53] LABS: INR 0.9 (<1.2); Prothrombin Time 9.6 sec (9.0-12.0)
[2022-05-19 17:02] LABS: HGB 6.6 gm/dL (11.4-16.0)
[2022-05-19 17:04] LABS: Partial Thromboplastin Time 21.8 sec (22.0-30.0)
[2022-05-19 17:13] LABS: Lymphocytes # (M) 0.96 k/uL (1.0-4.8); Monocytes # (M) 0.58 k/uL (0-1.0); Myelocytes % 1 %; Neutrophils # (M) 8.06 k/uL (1.3-7.7); Neutrophils % (M) 84 %; Nucleated Red Blood Cells 0 /100 WBC (0-0); Total Cells Counted 200
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
[2022-05-19] MEDS ORDERED: ACETAMINOPHEN TAB 325 MG TAB PO PRN (18:01)
[2022-05-19] MEDS ORDERED: NALOXONE 0.4 MG/ML 1 ML VIAL IV PRN (18:01)
[2022-05-19] MEDS ORDERED: ONDANSETRON 4 MG/2 ML VIAL IVP PRN (18:01)
[2022-05-19] MEDS ORDERED: LORazepam 2 MG/ML INJ IV STA (18:42)
[2022-05-19] MEDS ORDERED: MECLIZINE 12.5 MG TAB PO STA (18:42)
[2022-05-19] MEDS ORDERED: PANTOPRAZOLE 40 MG TABLET PO SCH (21:00)
[2022-05-19] MEDS: traZODone HCL 100 MG TAB PO SCH (22:45)
[2022-05-19] MEDS: ALPRAZolam 0.5 MG TAB PO SCH (22:45)
[2022-05-19] MEDS: PANTOPRAZOLE 40 MG/10 ML VIAL IVP SCH (22:45)
[2022-05-20 07:32] LABS: Calcium 7.7 mg/dL (8.4-10.2); Potassium 4.3 mmol/L (3.5-5.1)
[2022-05-20 08:06] LABS: Anisocytosis Slight; HCT 25.9 % (34.0-46.0); HGB 7.9 gm/dL (11.4-16.0); Hypochromasia Marked; MCH 27.1 pg (25.0-35.0); MCHC 30.5 g/dL (31.0-37.0); MCV 88.9 fL (80.0-100.0); Mean Platelet Volume 8.9; Platelet Count 340 k/uL (150-450); Poikilocytosis Moderate; RBC 2.91 m/uL (3.80-5.40); RDW 17.1 % (11.5-15.5); WBC 8.9 k/uL (3.8-10.6)
[2022-05-20] MEDS ORDERED: PANTOPRAZOLE 40 MG/10 ML VIAL IV SCH (09:00)
[2022-05-20] MEDS ORDERED: FUROSEMIDE 20 MG TAB PO SCH (09:00)
[2022-05-20 09:52] LABS: Band Neutrophils % 1 %; Eosinophils # (M) 0.27 k/uL (0-0.7); Lymphocytes # (M) 0.71 k/uL (1.0-4.8); Monocytes # (M) 0.62 k/uL (0-1.0); Myelocytes # (M) 0.09 k/uL (0); Myelocytes % 1 %; Neutrophils % (M) 81 %; Nucleated Red Blood Cells 0 /100 WBC (0-0); Polychromasia Present; Total Cells Counted 200
[2022-05-20] MEDS: DULoxetine HCL 60 MG CAPSULE.DR PO SCH (13:50)
[2022-05-20] MEDS: CITALOPRAM HYDROBROMIDE 20 MG TAB PO SCH (13:50)
[2022-05-20] MEDS: amLODIPine 10 MG TAB PO SCH (13:50)
[2022-05-20] MEDS: CYANOCOBALAMIN 500 MCG TAB PO SCH (13:50)
[2022-05-20] MEDS: PANTOPRAZOLE 40 MG/10 ML VIAL IVP SCH ×2 (13:50→20:37)
[2022-05-20] MEDS: FAMOTIDINE 20 MG TAB PO SCH (13:50)
[2022-05-20] MEDS: FERROUS SULFATE 325 MG TAB PO SCH ×3 (13:51→18:57)
[2022-05-20] MEDS: ASCORBIC ACID 500 MG TAB PO SCH (13:51)
[2022-05-20] MEDS: SENNOSIDES-DOCUSATE SODIUM 1 EACH TAB PO SCH (13:51)
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
[2022-05-20] MEDS: ISOSORBIDE DINITRATE 10 MG TAB PO SCH (18:50)
[2022-05-20] MEDS: traZODone HCL 100 MG TAB PO SCH (20:37)
[2022-05-21] MEDS: FERROUS SULFATE 325 MG TAB PO SCH ×3 (06:13→16:24)
[2022-05-21] MEDS: PANTOPRAZOLE 40 MG/10 ML VIAL IVP SCH ×2 (07:56→20:52)
[2022-05-21] MEDS: SENNOSIDES-DOCUSATE SODIUM 1 EACH TAB PO SCH (07:57)
[2022-05-21] MEDS: DULoxetine HCL 60 MG CAPSULE.DR PO SCH (07:57)
[2022-05-21] MEDS: CYANOCOBALAMIN 500 MCG TAB PO SCH (07:57)
[2022-05-21] MEDS: CITALOPRAM HYDROBROMIDE 20 MG TAB PO SCH (07:57)
[2022-05-21] MEDS: FAMOTIDINE 20 MG TAB PO SCH (07:57)
[2022-05-21] MEDS: amLODIPine 10 MG TAB PO SCH (07:57)
[2022-05-21] MEDS: ASCORBIC ACID 500 MG TAB PO SCH (07:57)
[2022-05-21] MEDS: ISOSORBIDE DINITRATE 10 MG TAB PO SCH (07:57)
[2022-05-21 08:21] LABS: Anisocytosis Slight; HCT 25.8 % (34.0-46.0); HGB 8.2 gm/dL (11.4-16.0); Hypochromasia Marked; MCH 28.3 pg (25.0-35.0); MCHC 31.8 g/dL (31.0-37.0); Mean Platelet Volume 8.1; Platelet Count 378 k/uL (150-450); Poikilocytosis Moderate; RDW 17.2 % (11.5-15.5); WBC 9.1 k/uL (3.8-10.6)
[2022-05-21 08:50] LABS: Calcium 7.9 mg/dL (8.4-10.2); Potassium 4.8 mmol/L (3.5-5.1)
[2022-05-21] MEDS ORDERED: LIDOCAINE 2% INJ 20 MG/ML (2 ML VIAL) ONE (14:55)
[2022-05-21] MEDS ORDERED: PROPOFOL 10 MG/ML 20 ML VIAL IV ONE (14:55)
[2022-05-21] MEDS ORDERED: IV FLUID CONTINUATION 900 ML IV ONE (14:58)
--- NOTE | 2022-05-21 15:23 | P.PCN ---
Date of Procedure: 05/21/22 Procedure(s) Performed: BRIEF HISTORY: Patient is a 82-year-old, pleasant, white female admitted hospital with severe symptomatic anemia and hemoglobin of 6.5 g/dL requiring1 unit of PRBC transfusion. She had a similar episode of GI bleed 2 weeks ago and underwent an upper endoscopy and was noted to have multiple duodenal AVMs which were cauterized. PROCEDURE PERFORMED: Esophagogastroduodenoscopywith argon plasma coagulation. PREOPERATIVE DIAGNOSIS: severe symptomatic anemia and black tarry stools. IV sedation per anesthesia. PROCEDURE: After informed consent was obtained, the patient was brought into the endoscopy unit. IV sedation was administered by Anesthesia under continuous monitoring. Initially the Olympus GIF-140 video endoscope was inserted into the mouth. Esophagus intubated without any difficulty. It was gradually advanced into the stomach and duodenum and carefully examined. The bulb of the duodenum appeared normal. in the second and third portion of the duodenum there were multiple scattered angiectasia identified one of which was oozing status post argon plasma coagulation with good hemostasis.The scope at this time was withdrawn to the stomach, adequately insufflated with air, and upon careful examination, mucosa of the antrum, body, cardia and the fundus appeared normal. The scope was then withdrawn into the esophagus. The GE junction was located at 39 cm from the incisors.small hiatal hernia noted. The esophagus appeared normal. There were no erosions or ulcerations seen and the patient tolerated the procedure well. IMPRESSION: 1. Multiple scattered angiomata ectasia status post argon plasma coagulation 2. Small hiatal hernia. RECOMMENDATIONS: The findings of this examination were discussed with the patient . Diet will be advanced as tolerated. Monitor CBC daily. If hemoglobin is stable she can be discharged home today or tomorrow..
--- NOTE | 2022-05-21 16:55 | P.DS ---
Providers Date of admission: 05/19/22 18:01 Attending physician: Dann Fernandez Consults: 05/19/22 18:01 Consult Physician Routine Consulting Provider: Estella Corrigan Consult Reason/Comments: anemia, hx AVM's Do you want consulting provider notified?: Yes Primary care physician: [facility] Course: Final Diagnosis Weakness and lightheadedness secondary to anemia possible acute blood loss ane kimberlee s/p 1 unit PRBC hgb now 8.2 Acute on chronic GI bleed Small hiatal hernia Recent hospitalization for symptomatic anemia and is status post cautery of 2 oozing AV malformations found on endoscopy Acute kidney injury mostly prerenal improved with IV hydration Chronic kidney disease stage 3 Gastroesophageal reflux disease hypertension Restless leg syndrome History of depression Full Code Discharge Disposition Patient is stable for discharge home. Has been cleared by GI services. Underwent endoscopy and had cautery of one oozing angiectasia. Patient will continue on protonix twice a day. Recommended to see Dr. Milka Corrigan and also primary care discharge. Repeat labs in 2 to 3 days. Hospital Course This is an 82 year old female who presents with medical history of hypertension, GERD, renal disease, known abdominal hernia, RLS, depression, hard of hearing, Former smoker. Patient follows with Dr. Dubois for low iron. 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 She presents to the hospital this admission with concern for generalized weakness and lightheadedness. Patient was sent in from her family practice for low hemoglobin. Denies blood in the stool, denies tarry stool. Denies fever, denies chills. On admission hgb was found to be low at 6.6 and patient was tranfused with 1 unit of packed red blood cells. Hemoglobin has improved to 8.2 She has elevated creatinine at 2.75 also which improved with fluids and is now 1.69. Patient was evaluated by GI services and underwent endoscopy today which reveals multiple scattered angiomata ectasia status post argon plasma coagulation. Small hiatal hernia. GI recommending to advance diet and patient is cleared for DC. Stable hemoglobin at 8.2. 05/21/2022 Patient is evaluated today sitting up in bed. She denies abdominal pain, denies nausea or vomiting. She has not had a BM this admission. No reports of shortness of breath, no chest pain. No dizziness or lightheadedness reported. Hemoglobin has improved to 8.2. today. BUN 37, creatinine 1.69. Lungs are clear S1 S2 auscultated, she is alert x 3 focal neurological exam is negative. Patient will be discharged home later today when cleared by GI services. Please see medication reconciliation for a list of current medication. Thank you for allowing us to participate in the care of this patient. The impression and plan of care has been dictated by Marissa Andrade, Nurse Practitioner as directed. Dr. Jim MD I have performed a history and physical examination and medical decision making of this patient, discussed the same with the dictator, and agree with the dictators assessment and plan as written, documented as a scribe. Based on total visit time, I have performed more than 50% of this visit. Patient Condition at Discharge: Fair Plan - Discharge Summary Discharge Rx Participant: No New Discharge Prescriptions: Continue amLODIPine [Norvasc] 10 mg PO DAILY Isosorbide Dinitrate 30 mg PO DAILY Pantoprazole [Protonix] 40 mg PO BID ALPRAZolam [Xanax] 0.5 mg PO HS rOPINIRole HCL [Requip] 0.5 mg PO HS DULoxetine HCL [Cymbalta] 60 mg PO DAILY Ferrous Sulfate [Iron (65 MG Elemental)] 325 mg PO TID-W/MEALS #90 tab Citalopram Hydrobromide [CeleXA] 40 mg PO DAILY Sennosides/Docusate Sodium [Senna Plus 8.6-50 mg Tablet] 2 tab PO DAILY traZODone HCL 100 mg PO TID Cyanocobalamin (Vitamin B-12) [Vitamin B-12] 1,000 mcg PO DAILY Famotidine [Pepcid] 20 mg PO DAILY Ascorbic Acid [Vitamin C] 1,000 mg PO DAILY Discontinued Furosemide [Lasix] 20 mg PO DAILY methylPREDNISolone Dose Pack [Medrol Dose Pack] See Taper PO DIRECTED Discharge Medication List amLODIPine [Norvasc] 10 mg PO DAILY 09/24/19 [History] Isosorbide Dinitrate 30 mg PO DAILY 04/26/20 [History] Pantoprazole [Protonix] 40 mg PO BID 04/26/20 [History] ALPRAZolam [Xanax] 0.5 mg PO HS 11/10/20 [History] Citalopram Hydrobromide [CeleXA] 40 mg PO DAILY 11/10/20 [History] Ascorbic Acid [Vitamin C] 1,000 mg PO DAILY 05/06/22 [History] Cyanocobalamin (Vitamin B-12) [Vitamin B-12] 1,000 mcg PO DAILY 05/06/22 [History] DULoxetine HCL [Cymbalta] 60 mg PO DAILY 05/06/22 [History] Famotidine [Pepcid] 20 mg PO DAILY 05/06/22 [History] Sennosides/Docusate Sodium [Senna Plus 8.6-50 mg Tablet] 2 tab PO DAILY 05/06/22 [History] rOPINIRole HCL [Requip] 0.5 mg PO HS 05/06/22 [History] traZODone HCL 100 mg PO TID 05/06/22 [History] Ferrous Sulfate [Iron (65 MG Elemental)] 325 mg PO TID-W/MEALS #90 tab 05/08/22 [Rx] Follow up Appointment(s)/Referral(s): Ezio Cordon MD [Primary Care Provider] - 1 Week (Office closed--please call for follow up MEI.) Estella Corrigan MD [STAFF PHYSICIAN] - 1 Week (Office closed--please call for follow up MEI.) Ambulatory/Diagnostic Orders: Basic Metabolic Panel [LAB.AMB] Time Frame: 3 Days, Location: None Selected Complete Blood Count w/diff [LAB.AMB] Time Frame: 3 Days, Location: None Selected Patient Instructions/Handouts: Arteriovenous Malformation (DC), Anemia (DC) Activity/Diet/Wound Care/Special Instructions: Patient resides at [facility] [phone] Call legal guardian when patient is discharged - if after hours or on the weekend call [phone]. During normal business hours call [phone] Discontinue steroid taper Continue protonix twice a day Discharge Disposition: HOME WITH HOME HEALTH SERVICES
[2022-05-21] MEDS: traZODone HCL 100 MG TAB PO SCH (20:51)
[2022-05-21] MEDS: ALPRAZolam 0.5 MG TAB PO SCH (20:51)
[2022-05-22] MEDS: FERROUS SULFATE 325 MG TAB PO SCH ×2 (06:13→12:34)
[2022-05-22] MEDS ORDERED: amLODIPine 5 MG TAB PO SCH (09:00)
[2022-05-22 09:17] VITALS: BP 124/56; PULSE 76; RESP 15; TEMP 98
[2022-05-22] MEDS: PANTOPRAZOLE 40 MG/10 ML VIAL IVP SCH (09:18)
[2022-05-22] MEDS: CITALOPRAM HYDROBROMIDE 20 MG TAB PO SCH (09:18)
[2022-05-22] MEDS: CYANOCOBALAMIN 500 MCG TAB PO SCH (09:18)
[2022-05-22] MEDS: SENNOSIDES-DOCUSATE SODIUM 1 EACH TAB PO SCH (09:18)
[2022-05-22] MEDS: ISOSORBIDE DINITRATE 10 MG TAB PO SCH (09:18)
[2022-05-22] MEDS: ASCORBIC ACID 500 MG TAB PO SCH (09:18)
[2022-05-22] MEDS: FAMOTIDINE 20 MG TAB PO SCH (09:18)
[2022-05-22] MEDS: DULoxetine HCL 60 MG CAPSULE.DR PO SCH (09:18)
[2022-05-22 09:22] LABS: Anisocytosis Slight; HCT 26.3 % (34.0-46.0); HGB 7.9 gm/dL (11.4-16.0); Hypochromasia Marked; MCH 27.3 pg (25.0-35.0); MCHC 29.9 g/dL (31.0-37.0); MCV 91.2 fL (80.0-100.0); Mean Platelet Volume 8.5; Platelet Count 391 k/uL (150-450); Poikilocytosis Moderate; RBC 2.88 m/uL (3.80-5.40); RDW 17.6 % (11.5-15.5); WBC 10.3 k/uL (3.8-10.6)
[2022-05-22 09:29] LABS: Potassium 4.7 mmol/L (3.5-5.1)
[2022-05-22 09:54] LABS: Eosinophils # (M) 0.31 k/uL (0-0.7); Lymphocytes # (M) 0.82 k/uL (1.0-4.8); Metamyelocytes # (M) 0.31 k/uL (0); Metamyelocytes % 3 %; Monocytes # (M) 0.31 k/uL (0-1.0); Neutrophils # (M) 8.55 k/uL (1.3-7.7); Neutrophils % (M) 83 %; Nucleated Red Blood Cells 0 /100 WBC (0-0); Polychromasia Present; Total Cells Counted 100
== END 2022-05-22 14:40 | disposition home health service (06) | DRG 378 ==
LOC: EC 12:32 → 3SCARD 18:01
PROVIDERS: ADMIT Internal Medicine; ATTEND Internal Medicine
PROC: 30233N1 Transfusion of Nonautologous Red Blood Cells into Peripheral Vein, Percutaneous Approach (ICD-10-PCS; 2022-05-19)
PROC: 0W3P8ZZ Control Bleeding in Gastrointestinal Tract, Via Natural or Artificial Opening Endoscopic (ICD-10-PCS; principal; 2022-05-21 14:35)
DX: K31.811 Angiodysplasia of stomach and duodenum with bleeding (principal); D62 Acute posthemorrhagic anemia; N17.9 Acute kidney failure, unspecified; Q60.0 Renal agenesis, unilateral; D50.9 Iron deficiency anemia, unspecified; K21.9 Gastro-esophageal reflux disease without esophagitis; I12.9 Hypertensive chronic kidney disease with stage 1 through stage 4 chronic kidney disease, or unspecified chronic kidney disease; N18.30 Chronic kidney disease, stage 3 unspecified; D51.9 Vitamin B12 deficiency anemia, unspecified; F32.A Depression, unspecified; G25.81 Restless legs syndrome; H91.90 Unspecified hearing loss, unspecified ear; K44.9 Diaphragmatic hernia without obstruction or gangrene; K22.2 Esophageal obstruction; Z87.891 Personal history of nicotine dependence; Z79.899 Other long term (current) drug therapy; Z91.81 History of falling; Z98.890 Other specified postprocedural states
CPT/HCPCS: 36415; 36430; 43270; 80048; 80053; 84484; 85025; 85027; 85610; 85730; 86850; 86900; 86901; 86920; 93005; 96374; 96375; 96376; 99285

== ENCOUNTER → 2022-05-26 | Outpatient (CLI) | payer MEDICARE, BC, OTHER ==
[2022-05-26 18:10] LABS: Basophils # (A) 0.08 X 10*3/uL (0.00-0.10); Basophils % (A) 0.9 %; Eosinophils # (A) 0.28 X 10*3/uL (0.04-0.35); Eosinophils % (A) 3.1 %; HCT 29.9 % (37.2-46.3); HGB 8.5 g/dL (12.0-15.0); Immature Grans, Automated 1.1 %; Lymphocytes # (A) 0.68 X 10*3/uL (0.90-5.00); Lymphocytes % (A) 7.4 %; MCHC 28.4 g/dL (32.0-37.0); MCV 94.9 fL (80.0-97.0); Mean Platelet Volume 10.8 fL (9.5-12.2); Monocytes # (A) 0.64 X 10*3/uL (0.20-1.00); NRBC Per 100 WBC 0 /100 WBCS (0.0-0.0); Neutrophils # (A) 7.36 X 10*3/uL (1.80-7.70); Neutrophils % (A) 80.5 %; Platelet Count 450 X 10*3/uL (140-440); RBC 3.15 X 10*6/uL (4.10-5.20); WBC 9.14 X 10*3/uL (4.50-10.00)
[2022-05-26 18:18] LABS: African American GFR (CKD) 31.5 (60.0-200.0); Anion Gap 10.6 mmol/L (10.00-18.00); BUN/Creat Ratio 19.76 Ratio (12.00-20.00); Blood Urea Nitrogen 33.6 mg/dL (9.0-27.0); Calcium 9.1 mg/dL (8.7-10.3); Carbon Dioxide 19.4 mmol/L (20.0-27.5); Non-African American GFR(CKD) 27.2 (60.0-200.0); Potassium 4.9 mmol/L (3.5-5.5)
== END | disposition home or self-care (01) ==
LOC: LABWHC1 12:34
PROVIDERS: ATTEND Nurse Practitioner Family
DX: D64.9 Anemia, unspecified (principal); N17.9 Acute kidney failure, unspecified
CPT/HCPCS: 36415; 80048; 85025

== ENCOUNTER 2022-09-24 12:59 | Inpatient (IN) | payer MEDICARE, BC ==
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
--- NOTE | 2022-09-24 14:02 | XR ---
EXAMINATION TYPE: XR chest 1V DATE OF EXAM: 09/24/2022 COMPARISON: 04/23/2021 INDICATION: Fall TECHNIQUE: Single frontal view of the chest is obtained. FINDINGS: The heart size is mildly prominent. The pulmonary vasculature is mildly prominent. No suspicious focal consolidations are evident. IMPRESSION: 1. Prominent pulmonary vascular markings and large heart. Correlate for volume overload.
--- NOTE | 2022-09-24 14:11 | XR ---
EXAMINATION TYPE: XR lumbosacral spine min 4V DATE OF EXAM: 09/24/2022 COMPARISON: 01/18/2014 HISTORY: Fall TECHNIQUE: 5 view lumbar spine FINDINGS: There are 5 lumbar-type vertebral bodies. The pedicles are intact. Facet degenerative osuna es present within the lower lumbar spine. There is mild posterior disc space narrowing at L5-S1. Tanja ining disc heights are preserved. Vertebral body heights are preserved. Vascular calcifications withi n the aorta. The right oblique view is nondiagnostic. IMPRESSION: 1. No acute osseous abnormality radiographically apparent. Follow-up can be performed as clinically indicated
--- NOTE | 2022-09-24 14:14 | XR ---
EXAMINATION TYPE: XR Hip Bilateral and AP pelvis DATE OF EXAM: 09/24/2022 COMPARISON: None HISTORY: Fall TECHNIQUE: AP pelvis and bilateral 2 view hips FINDINGS: Femoral heads articulate with the acetabulum. Joint spaces and mild narrowing. Sepsis pubis and sacroiliac joints appear normal. Nonspecific bowel gas is present. IMPRESSION: 1. No acute osseous abnormalities bilateral hips
[2022-09-24 14:46] LABS: Albumin 3.6 g/dL (3.5-5.0); Calcium 8.5 mg/dL (8.4-10.2); Potassium 5.4 mmol/L (3.5-5.1); Total Bilirubin 0.2 mg/dL (0.2-1.3); Total Protein 6.4 g/dL (6.3-8.2)
[2022-09-24 14:58] LABS: Anisocytosis Slight; HCT 20.9 % (34.0-46.0); Hypochromasia Marked; MCH 25.4 pg (25.0-35.0); MCHC 28.4 g/dL (31.0-37.0); MCV 89.5 fL (80.0-100.0); Mean Platelet Volume 7.5; Platelet Count 504 k/uL (150-450); Poikilocytosis Slight; RBC 2.34 m/uL (3.80-5.40); RDW 17.7 % (11.5-15.5); WBC 9.8 k/uL (3.8-10.6)
[2022-09-24 15:00] LABS: HGB 5.9 gm/dL (11.4-16.0)
[2022-09-24] MEDS ORDERED: FUROSEMIDE 10 MG/ML 4 ML VIAL IV ONE (15:04)
[2022-09-24 15:18] LABS: Nucleated Red Blood Cells 0 /100 WBC (0-0)
[2022-09-24 15:20] LABS: Band Neutrophils % 1 %; Lymphocytes # (M) 0.78 k/uL (1.0-4.8); Metamyelocytes % 2 %; Neutrophils % (M) 87 %; Total Cells Counted 200
[2022-09-24] MEDS ORDERED: NALOXONE 0.4 MG/ML 1 ML VIAL IV PRN (15:21)
[2022-09-24] MEDS: traMADol 50 MG TAB PO PRN (16:14)
[2022-09-24] MEDS ORDERED: HYDROcodone/APAP 5-325MG 1 EACH TAB PO STA (18:58)
[2022-09-24] MEDS: traZODone HCL 100 MG TAB PO SCH (20:58)
[2022-09-24] MEDS: ALPRAZolam 0.5 MG TAB PO SCH (20:58)
[2022-09-25] MEDS: traMADol 50 MG TAB PO PRN ×2 (08:48→16:22)
[2022-09-25] MEDS: PANTOPRAZOLE 40 MG TABLET PO SCH ×2 (09:21→17:08)
[2022-09-25] MEDS: FAMOTIDINE 20 MG TAB PO SCH (09:22)
[2022-09-25] MEDS: ISOSORBIDE DINITRATE 10 MG TAB PO SCH (09:22)
[2022-09-25] MEDS: CITALOPRAM HYDROBROMIDE 20 MG TAB PO SCH (09:22)
[2022-09-25] MEDS: DULoxetine HCL 60 MG CAPSULE.DR PO SCH (09:22)
[2022-09-25] MEDS: traZODone HCL 100 MG TAB PO SCH ×3 (09:22→21:02)
[2022-09-25 09:38] LABS: African American GFR (CKD) 20.8 (60.0-200.0); Anion Gap 8.5 mmol/L (10.00-18.00); BUN/Creat Ratio 20.17 Ratio (12.00-20.00); Blood Urea Nitrogen 48.4 mg/dL (9.0-27.0); Calcium 8.5 mg/dL (8.7-10.3); Carbon Dioxide 20.5 mmol/L (20.0-27.5); Non-African American GFR(CKD) 17.9 (60.0-200.0); Potassium 4.8 mmol/L (3.5-5.5)
[2022-09-25 10:17] LABS: Basophils # (A) 0.06 X 10*3/uL (0.00-0.10); Basophils % (A) 0.6 %; Eosinophils # (A) 0.45 X 10*3/uL (0.04-0.35); Eosinophils % (A) 4.8 %; Immature Grans, Automated 0.6 %; Lymphocytes # (A) 0.54 X 10*3/uL (0.90-5.00); Lymphocytes % (A) 5.7 %; Monocytes # (A) 0.92 X 10*3/uL (0.20-1.00); Monocytes % (A) 9.8 %; NRBC Per 100 WBC 0 /100 WBCS (0.0-0.0); Neutrophils # (A) 7.39 X 10*3/uL (1.80-7.70); Neutrophils % (A) 78.5 %
[2022-09-25 10:20] LABS: HGB 6.1 g/dL (12.0-15.0); Hypochromasia (M) 2+; MCH 25.2 pg (27.0-32.0); MCHC 27.7 g/dL (32.0-37.0); MCV 90.9 fL (80.0-97.0); Mean Platelet Volume 9.6 fL (9.5-12.2); Platelet Count 402 X 10*3/uL (140-440); RBC 2.42 X 10*6/uL (4.10-5.20); WBC 9.42 X 10*3/uL (4.50-10.00)
[2022-09-25 12:08] LABS: Anisocytosis Slight; HCT 27.4 % (34.0-46.0); Hypochromasia Marked; MCH 27.2 pg (25.0-35.0); MCHC 30.5 g/dL (31.0-37.0); MCV 89.3 fL (80.0-100.0); Mean Platelet Volume 8.1; Platelet Count 422 k/uL (150-450); Poikilocytosis Moderate; RBC 3.07 m/uL (3.80-5.40); RDW 16.7 % (11.5-15.5)
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
[2022-09-25 12:24] LABS: HGB 8.3 gm/dL (11.4-16.0)
[2022-09-25 13:05] LABS: Lymphocytes # (M) 0.27 k/uL (1.0-4.8); Monocytes # (M) 0.27 k/uL (0-1.0); Neutrophils # (M) 8.46 k/uL (1.3-7.7); Neutrophils % (M) 94 %; Nucleated Red Blood Cells 0 /100 WBC (0-0); Total Cells Counted 100
[2022-09-25] MEDS: ALPRAZolam 0.5 MG TAB PO SCH (21:02)
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
[2022-09-26] MEDS ORDERED: hydrALAZINE HCL 25 MG TAB PO STA (02:27)
[2022-09-26] MEDS: traMADol 50 MG TAB PO PRN ×2 (03:59→21:03)
[2022-09-26 05:06] LABS: Anisocytosis Slight; HCT 28.6 % (34.0-46.0); HGB 8.5 gm/dL (11.4-16.0); Hypochromasia Marked; MCH 26.6 pg (25.0-35.0); MCHC 29.6 g/dL (31.0-37.0); MCV 90.1 fL (80.0-100.0); Mean Platelet Volume 7.3; Platelet Count 428 k/uL (150-450); Poikilocytosis Moderate; RBC 3.17 m/uL (3.80-5.40); RDW 16.8 % (11.5-15.5); WBC 10.8 k/uL (3.8-10.6)
[2022-09-26 06:38] LABS: Eosinophils # (M) 0.32 k/uL (0-0.7); Lymphocytes # (M) 0.86 k/uL (1.0-4.8); Monocytes # (M) 0.86 k/uL (0-1.0); Neutrophils # (M) 8.86 k/uL (1.3-7.7); Neutrophils % (M) 82 %; Nucleated Red Blood Cells 0 /100 WBC (0-0); Total Cells Counted 200
[2022-09-26 06:39] LABS: Anisocytosis (M) Present; Large Platelets Present; Poikilocytosis (M) Present; Polychromasia Present
[2022-09-26] MEDS: traZODone HCL 100 MG TAB PO SCH ×3 (07:53→21:01)
[2022-09-26] MEDS: FAMOTIDINE 20 MG TAB PO SCH (07:53)
[2022-09-26] MEDS: PANTOPRAZOLE 40 MG TABLET PO SCH ×2 (07:53→17:01)
[2022-09-26] MEDS: CITALOPRAM HYDROBROMIDE 20 MG TAB PO SCH (07:53)
[2022-09-26] MEDS: ISOSORBIDE DINITRATE 10 MG TAB PO SCH (07:53)
[2022-09-26] MEDS: DULoxetine HCL 60 MG CAPSULE.DR PO SCH (07:53)
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
[2022-09-26] MEDS: KETOROLAC 15 MG/ML 1 ML VIAL IVP SCH ×3 (12:43→23:47)
[2022-09-26 18:38] LABS: % Iron Saturation 10.79 (12.00-45.00); Ferritin 20.6 ng/mL (10.0-291.0); Iron 36 ug/dL (50-170); Total Iron Binding Capacity 337 ug/dL (228-460)
[2022-09-26 19:06] LABS: Vitamin B12 >3600.0 pg/mL (200.0-944.0)
[2022-09-26] MEDS: ALPRAZolam 0.5 MG TAB PO SCH (21:01)
[2022-09-27 01:17] LABS: Appearance,Urine Turbid (Clear); Bacteria,Urine Moderate /hpf; Bilirubin,Urine Negative (Negative); Blood,Urine Trace (Negative); Color,Urine Yellow; Glucose,Urine (UA) Negative (Negative); Hyaline Casts,Urine 9 /lpf (0-2); Ketones,Urine Negative (Negative); Leukocyte Esterase,Urine Large (Negative); Mucus,Urine Rare /hpf; Nitrite,Urine Negative (Negative); PH, Urine 6.5 (5.0-8.0); Protein,Urine 1+ (Negative); RBC,Urine 11 /hpf (0-5); Specific Gravity,Urine 1.014 (1.001-1.035); Squamous Epithelial Cell,Urine 1 /hpf (0-4); Urobilinogen,Urine <2.0 mg/dL (<2.0); WBC,Urine >182 /hpf (0-5)
[2022-09-27] MEDS: KETOROLAC 15 MG/ML 1 ML VIAL IVP SCH ×3 (05:24→17:22)
[2022-09-27 06:05] LABS: Anisocytosis Slight; Basophils % (A) 0 %; Eosinophils # (A) 0.7 k/uL (0-0.7); Eosinophils % (A) 9 %; HCT 26.1 % (34.0-46.0); HGB 7.5 gm/dL (11.4-16.0); Hypochromasia Marked; Lymphocytes # (A) 0.6 k/uL (1.0-4.8); Lymphocytes % (A) 8 %; MCH 26.4 pg (25.0-35.0); MCHC 28.7 g/dL (31.0-37.0); MCV 91.7 fL (80.0-100.0); Mean Platelet Volume 7.6; Monocytes # (A) 1.1 k/uL (0-1.0); Monocytes % (A) 15 %; Neutrophils # (A) 4.4 k/uL (1.3-7.7); Neutrophils % (A) 57 %; Platelet Count 395 k/uL (150-450); Poikilocytosis Moderate; RBC 2.85 m/uL (3.80-5.40); RDW 17.1 % (11.5-15.5); WBC 7.6 k/uL (3.8-10.6)
[2022-09-27 06:14] LABS: African American GFR (CKD) 21 (>60 ml/min/1.73 sqM); Anion Gap 6 mmol/L; Blood Urea Nitrogen 48 mg/dL (7-17); Calcium 8.4 mg/dL (8.4-10.2); Carbon Dioxide 22 mmol/L (22-30); Chloride 113 mmol/L (98-107); Glucose 91 mg/dL (74-99); Non-African American GFR(CKD) 18 (>60 ml/min/1.73 sqM); Potassium 4.8 mmol/L (3.5-5.1); Sodium 141 mmol/L (137-145)
[2022-09-27] MEDS: traMADol 50 MG TAB PO PRN (07:44)
[2022-09-27] MEDS ORDERED: SODIUM CHLORIDE 0.9% 500 ML 500 ML IV ONE ×2 (10:02)
--- NOTE | 2022-09-27 10:40 | P.OP ---
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 Anesthesia: MAC Surgeon: Donell Bernardo Estimated Blood Loss (ml): 5 Pathology: none sent Condition: stable Disposition: floor Indications for Procedure: Patient is an 82-year-old lady admitted to [facility] after suffering a fall at the outpatient clinic along with symptoms of weakness. She had no traumatic injuries but was found to be quite anemic on presentation, she's had an appropriate response to 2 units packed red blood cells. She has known history of foregut AV malformations, has undergone multiple rounds of EGD and APC in the past. She wishes to move forward with EGD and interventions if indicated for control of GI bleed. Sodium 1 consent for the same after discussion of risks, benefit alternatives to treatment. Operative Findings: 3-4 mm AV malformation and third portion of the duodenum with ongoing bleeding, 5 x 5 cm sliding hiatal hernia. Description of Procedure: Patient was taken the endoscopy suite and placed in left lateral decubitus position. Upon initiation of IV sedation gastroscope was advanced under visualization over the bite block to the second and third portions of the duodenum. There was evidence of ongoing bleeding seen between the second and third portion. With irrigation and careful inspection I was able to identify multiple diminutive areas of AV malformation but there was a larger 3-4 mm AVM noted around the junction between the second and third portion of the duodenum. This area seemed to be a bit scarred down suggestive of previous treatments with cautery. Scope was withdrawn to the antrum revealing normal appearing mucosa no evidence of ulcer disease or gastritis. Scope was retroflexed visualizing gastric mucosa from an antegrade and retrograde perspective. There were no areas of ulceration, no other AV malformations, no evidence of portal hypertensi on. Patient had an approximately 5 cm transverse dimension by 5 cm in axial height sliding hiatal hernia. No Brandon's ulcer was evident. GE junction was inspected with narrow band imaging was normal and uniform in appearance. Esophagus had a normal character and gastroscope was fully withdrawn and exchanged for a pediatric colonoscope for more stability for APC treatment of AVM of the duodenum. Scope was readvanced and a visualization and the previously described lesion reidentified and treated with argon plasma coagulation at 35 W. Hemostasis was excellent. Stomach was decompressed, scope fully withdrawn and patient transferred to the postanesthesia care unit in stable condition. She will follow-up in the office with the between 1 and 2 weeks post discharge from the hospital, okay to start on a full liquid diet, may advance to regular diet as tolerated thereafter. Would recommend keeping her in the hospital overnight so that her hemoglobin can be reassessed tomorrow morning, if it remains stable she should be okay for discharge thereafter.
[2022-09-27] MEDS: SODIUM FERRIC GLUCONAT-SUCROSE 125 MG in SODIUM CHLORIDE 0.9% 100 ML IVPB SCH (11:02)
[2022-09-27] MEDS: PANTOPRAZOLE 40 MG TABLET PO SCH ×2 (11:41→17:00)
[2022-09-27] MEDS: FAMOTIDINE 20 MG TAB PO SCH (11:41)
[2022-09-27] MEDS: traZODone HCL 100 MG TAB PO SCH ×3 (11:41→21:06)
[2022-09-27] MEDS: ISOSORBIDE DINITRATE 10 MG TAB PO SCH (11:41)
[2022-09-27] MEDS: DULoxetine HCL 60 MG CAPSULE.DR PO SCH (11:42)
[2022-09-27] MEDS: CITALOPRAM HYDROBROMIDE 20 MG TAB PO SCH (11:42)
--- NOTE | 2022-09-27 15:01 | P.PN ---
Subjective Progress Note Date: 09/27/22 Principal diagnosis: Normocytic, normochromic, iron deficient anemia Pt seen post endoscopy, she is a little drowsy, denies pain, she has been started on IV iron for iron def, denies any SE so far. Objective - Vital Signs Vital signs: Vital Signs Temp 97.7 F 09/27/22 07:30 Pulse 57 L 09/27/22 11:00 Resp 18 09/27/22 11:00 BP 122/68 09/27/22 11:00 Pulse Ox 97 09/27/22 11:00 FiO2 Intake & Output 09/26/22 09/27/22 09/27/22 18:59 06:59 18:59 Intake Total 118 240 200 Balance 118 240 200 Intake: IV 200 Oral 118 240 Other: Voiding Method Diaper Diaper Diaper # Voids 2 2 - Constitutional General appearance: Present: average body habitus, cooperative, no acute distress - EENT Eyes: Present: anicteric sclerae, edentulous, EOMI ENT: Present: hearing grossly normal - Respiratory Respiratory: bilateral: CTA - Cardiovascular Rhythm: regular Heart sounds: normal: S1, S2 Abnormal Heart Sounds: Absent: systolic murmur, diastolic murmur, rub, S3 Gallop, S4 Gallop, click, other - Gastrointestinal General gastrointestinal: Present: normal bowel sounds, soft - Neurologic Neurologic: Present: CNII-XII intact (grossly) - Musculoskeletal Musculoskeletal: Present: generalized weakness - Psychiatric Psychiatric: Present: A&O x's 3, appropriate affect, intact judgment & insight - Labs CBC & Chem 7: 09/27/22 05:33 09/27/22 05:33 Labs: Abnormal Lab Results - Last 24 Hours (Table) 09/25/22 09/27/22 09/27/22 Range/Units 06:08 00:34 05:33 RBC 2.85 L (3.80-5.40) m/uL Hgb 7.5 L (11.4-16.0) gm/dL Hct 26.1 L (34.0-46.0) % MCHC 28.7 L (31.0-37.0) g/dL RDW 17.1 H (11.5-15.5) % Lymphocytes # 0.6 L (1.0-4.8) k/uL Monocytes # 1.1 H (0-1.0) k/uL Chloride (98-107) mmol/L BUN (7-17) mg/dL Creatinine (0.52-1.04) mg/dL Iron 36 L (50-170) ug/dL % Saturation 10.79 L (12.00-45.00) Vitamin B12 >3600.0 H (200.0-944.0) pg/mL Urine Appearance Turbid H (Clear) Urine Protein 1+ H (Negative) Urine Blood Trace H (Negative) Ur Leukocyte Esterase Large H (Negative) Urine RBC 11 H (0-5) /hpf Urine WBC >182 H (0-5) /hpf Urine WBC Clumps Many H (None) /hpf Urine Bacteria Moderate H (None) /hpf Hyaline Casts 9 H (0-2) /lpf Urine Mucus Rare H (None) /hpf 09/27/22 Range/Units 05:33 RBC (3.80-5.40) m/uL Hgb (11.4-16.0) gm/dL Hct (34.0-46.0) % MCHC (31.0-37.0) g/dL RDW (11.5-15.5) % Lymphocytes # (1.0-4.8) k/uL Monocytes # (0-1.0) k/uL Chloride 113 H (98-107) mmol/L BUN 48 H (7-17) mg/dL Creatinine 2.36 H (0.52-1.04) mg/dL Iron (50-170) ug/dL % Saturation (12.00-45.00) Vitamin B12 (200.0-944.0) pg/mL Urine Appearance (Clear) Urine Protein (Negative) Urine Blood (Negative) Ur Leukocyte Esterase (Negative) Urine RBC (0-5) /hpf Urine WBC (0-5) /hpf Urine WBC Clumps (None) /hpf Urine Bacteria (None) /hpf Hyaline Casts (0-2) /lpf Urine Mucus (None) /hpf Assessment and Plan (1) Anemia Current Visit: Yes Status: Acute Priority: High Code(s): D64.9 - ANEMIA, UNSPECIFIED SNOMED Code(s): 079083621 (2) Iron deficiency anemia Current Visit: Yes Status: Acute Priority: High Code(s): D50.9 - IRON DEFICIENCY ANEMIA, UNSPECIFIED SNOMED Code(s): 05469998 Plan: Iron def anemia -IV iron started -Endoscopy completed today, pending results
[2022-09-27] MEDS: ALPRAZolam 0.5 MG TAB PO SCH (21:07)
[2022-09-28] MEDS: KETOROLAC 15 MG/ML 1 ML VIAL IVP SCH ×3 (00:22→12:09)
--- NOTE | 2022-09-28 02:47 | P.PN ---
Subjective Progress Note Date: 09/26/22 Patient is a 82-year-old female with a known history of CKD, iron dextran for anemia, GERD, hearing results left deafness, hypertension, previous history of transfusions due to anemia and iron deficiency, depression prior to smoking was sent to ER status post fall at [facility]. Patient is states that she has been having generalized weakness, shortness of breath and chest pressure for the past few days. Denies any fever or chills. Did have cough few days ago but resolved now. No complaints of nausea or vomiting or abdominal pain or diarrhea. Denies any hematemesis or melena. On admission hemoglobin was 5.9 and repeat was 6.2 this morning. Patient received 1 unit of PRBC and another 1 today. Laboratory showed sodium 140 potassium 5.4 chloride 113 bicarb is 17 BUN 45 and creatinine 2.53 and blood sugar 120 albumin 3.6. Chest x-ray showed prominent pulmonary vascular markings and large heart. Correlate for volume overload. Lumbar spine x-ray showed no acute osseous abnormality radiographically apparent. Follow-up can be performed as clinically indicated. X-ray of the pelvis showed no acute osseous abnormalities bilateral hips. EKG showed sinus rhythm. 09/26/2022 Patient is currently lying in bed. Awake alert and mentation is at baseline. No complaints of chest pain or shortness of breath. No complaints of abdominal pain. No nausea or vomiting. Patient did have bowel meant. Hemoglobin level 8.5 today. Patient was seen by general surgery is planning for EGD tomorrow. Laboratory data showed WBC 10.8, hemoglobin 8.5 and platelets 428. Current medications reviewed. Objective - Vital Signs Vital signs: Vital Signs Temp 97.9 F 09/26/22 18:46 Pulse 81 09/26/22 18:46 Resp 18 09/26/22 20:00 BP 134/64 09/26/22 18:46 Pulse Ox 93 L 09/26/22 18:46 FiO2 Intake & Output 09/26/22 09/26/22 09/27/22 06:59 18:59 06:59 Intake Total 118 240 Balance 118 240 Intake: Oral 118 240 Other: Voiding Method Diaper Diaper Diaper # Voids 2 2 - Exam PHYSICAL EXAMINATION: Patient is lying in the bed comfortably, no acute distress, awake alert and oriented.. HEENT: Normocephalic. Neck is supple. Pupils reactive. Nostrils clear. Oral cavity is moist. Neck reveals no JVD, carotid bruits, or thyromegaly. CHEST EXAMINATION: Trachea is central. Symmetrical expansion. Lung lyn clear to auscultation and percussion. CARDIAC: Normal S1, S2 with no gallops. No murmurs ABDOMEN: Soft. Bowel sounds present. Nontender. No organomegaly. No abdominal bruits. Extremities: reveal no edema. No clubbing or cyanosis Neurologically awake, alert, oriented x2-3 with well-coordinated movements. No focal deficits noted Skin: No rash or skin lesions. Psychiatric: Coperative. Nonsuicidal, Musculoskeletal: No joint swelling or deformity. Normal range of motion. - Labs CBC & Chem 7: 09/27/22 05:33 09/27/22 05:33 Labs: Abnormal Lab Results - Last 24 Hours (Table) 09/25/22 09/26/22 Range/Units 06:08 04:31 WBC 10.8 H (3.8-10.6) k/uL RBC 3.17 L (3.80-5.40) m/uL Hgb 8.5 L (11.4-16.0) gm/dL Hct 28.6 L (34.0-46.0) % MCHC 29.6 L (31.0-37.0) g/dL RDW 16.8 H (11.5-15.5) % Neutrophils # (Manual) 8.86 H (1.3-7.7) k/uL Lymphocytes # (Manual) 0.86 L (1.0-4.8) k/uL Iron 36 L (50-170) ug/dL % Saturation 10.79 L (12.00-45.00) Vitamin B12 >3600.0 H (200.0-944.0) pg/mL Assessment and Plan Assessment: Acute on chronic anemia with history of iron deficiency, CKD and GI bleed. Symptomatic anemia. Status post fall Possible GI bleed History of GI bleed and multiple EGDs requiring cauterization of small bowel angiectasia, last seen 12/23/2020. History of capsule endoscopy in November 2016 revealed active oozing in the duodenum. GERD Hearing disorder/deafness Hypertension Chronic kidney disease stage IV Prior history of smoking Depression DVT prophylaxis with SCDs Plan: Patient will be transfused with PRBC and keep the hemoglobin greater than 7. Continue with Protonix twice daily. FOBT was ordered. Iron profile and ferritin level was ordered prior to transfusion. Hematology is on board and general surgery was consulted. General surgery is planning for EGD tomorrow. Continue to follow closely. Prognosis guarded at this time. Time with Patient: Greater than 30
--- NOTE | 2022-09-28 02:49 | P.PN ---
Subjective Progress Note Date: 09/27/22 Patient is a 82-year-old female with a known history of CKD, iron dextran for anemia, GERD, hearing results left deafness, hypertension, previous history of transfusions due to anemia and iron deficiency, depression prior to smoking was sent to ER status post fall at [facility]. Patient is states that she has been having generalized weakness, shortness of breath and chest pressure for the past few days. Denies any fever or chills. Did have cough few days ago but resolved now. No complaints of nausea or vomiting or abdominal pain or diarrhea. Denies any hematemesis or melena. On admission hemoglobin was 5.9 and repeat was 6.2 this morning. Patient received 1 unit of PRBC and another 1 today. Laboratory showed sodium 140 potassium 5.4 chloride 113 bicarb is 17 BUN 45 and creatinine 2.53 and blood sugar 120 albumin 3.6. Chest x-ray showed prominent pulmonary vascular markings and large heart. Correlate for volume overload. Lumbar spine x-ray showed no acute osseous abnormality radiographically apparent. Follow-up can be performed as clinically indicated. X-ray of the pelvis showed no acute osseous abnormalities bilateral hips. EKG showed sinus rhythm. 09/26/2022 Patient is currently lying in bed. Awake alert and mentation is at baseline. No complaints of chest pain or shortness of breath. No complaints of abdominal pain. No nausea or vomiting. Patient did have bowel meant. Hemoglobin level 8.5 today. Patient was seen by general surgery is planning for EGD tomorrow. Laboratory data showed WBC 10.8, hemoglobin 8.5 and platelets 428. 09/27/2022 Patient is currently resting in bed. Awake alert and oriented x3. Patient underwent EGD today. Showed 5 x 5 cm sliding hiatal hernia without Brandon's ulcer, multiple diminutive duodenal AVMs with the larger of 4 mm AV m alformation of the third portion of the duodenum with ongoing bleeding. Denies any complaints of dizziness or lightheadedness. No chest pain or shortness of breath. No nausea vomiting abdominal pain or diarrhea. Hemoglobin level down to 7.5 today. Patient is also being transfused with iron. BUN is 48 and creatinine 2.36. Current medications reviewed. Objective - Vital Signs Vital signs: Vital Signs Temp 97.4 F L 09/27/22 19:14 Pulse 71 04/24/23 19:14 Resp 18 09/27/22 20:00 BP 131/66 09/27/22 19:14 Pulse Ox 94 L 09/27/22 19:14 FiO2 Intake & Output 09/27/22 09/27/22 09/28/22 06:59 18:59 06:59 Intake Total 240 300 Balance 240 300 Intake: IV 200 Intake, IV Titration 100 Amount Sodium Ferric Gluconat- 100 Sucrose 125 mg In Sodium Chloride 0.9% 100 ml @ 100 mls/hr IVPB DAILY [facility] Rx#:[id number] Oral 240 Other: Voiding Method Diaper Diaper Diaper # Voids 2 1 1 - Exam PHYSICAL EXAMINATION: Patient is lying in the bed comfortably, no acute distress, awake alert and oriented.. HEENT: Normocephalic. Neck is supple. Pupils reactive. Nostrils clear. Oral cavity is moist. Neck reveals no JVD, carotid bruits, or thyromegaly. CHEST EXAMINATION: Trachea is central. Symmetrical expansion. Lung lyn clear to auscultation and percussion. CARDIAC: Normal S1, S2 with no gallops. No murmurs ABDOMEN: Soft. Bowel sounds present. Nontender. No organomegaly. No abdominal bruits. Extremities: reveal no edema. No clubbing or cyanosis Neurologically awake, alert, oriented x2-3 with well-coordinated movements. No focal deficits noted Skin: No rash or skin lesions. Psychiatric: Coperative. Nonsuicidal, Musculoskeletal: No joint swelling or deformity. Normal range of motion. - Labs CBC & Chem 7: 09/27/22 05:33 09/27/22 05:33 Labs: Abnormal Lab Results - Last 24 Hours (Table) 09/27/22 09/27/22 09/27/22 Range/Units 00:34 05:33 05:33 RBC 2.85 L (3.80-5.40) m/uL Hgb 7.5 L (11.4-16.0) gm/dL Hct 26.1 L (34.0-46.0) % MCHC 28.7 L (31.0-37.0) g/dL RDW 17.1 H (11.5-15.5) % Lymphocytes # 0.6 L (1.0-4.8) k/uL Monocytes # 1.1 H (0-1.0) k/uL Chloride 113 H (98-107) mmol/L BUN 48 H (7-17) mg/dL Creatinine 2.36 H (0.52-1.04) mg/dL Urine Appearance Turbid H (Clear) Urine Protein 1+ H (Negative) Urine Blood Trace H (Negative) Ur Leukocyte Esterase Large H (Negative) Urine RBC 11 H (0-5) /hpf Urine WBC >182 H (0-5) /hpf Urine WBC Clumps Many H (None) /hpf Urine Bacteria Moderate H (None) /hpf Hyaline Casts 9 H (0-2) /lpf Urine Mucus Rare H (None) /hpf Microbiology - Last 24 Hours (Table) 09/27/22 00:34 Urine Culture - Preliminary Urine,Voided Assessment and Plan Assessment: Acute blood loss anemia secondary to GI bleed. 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 Acute on chronic anemia with history of iron deficiency, CKD and GI bleed. Symptomatic anemia. Status post fall History of GI bleed and multiple EGDs requiring cauterization of small bowel angiectasia, last seen 12/23/2020. History of capsule endoscopy in November 2016 revealed active oozing in the duodenum. GERD Hearing disorder/deafness Hypertension Chronic kidney disease stage IV Prior history of smoking Depression DVT prophylaxis with SCDs Plan: Patient is status post EGD today. Continue with PPI. Started on full liquid diet and advance as tolerated. Monitor H&H. Patient is otherwise being transfused with IV iron. General surgery and oncology is on board. Continue to follow closely. Prognosis guarded at this time. Time with Patient: Greater than 30
[2022-09-28 08:01] LABS: Methylmalonic Acid 0.22 umol/L (<0.40)
[2022-09-28] MEDS: PANTOPRAZOLE 40 MG TABLET PO SCH ×2 (08:48→16:51)
[2022-09-28] MEDS: traZODone HCL 100 MG TAB PO SCH ×3 (08:48→20:52)
[2022-09-28] MEDS: CITALOPRAM HYDROBROMIDE 20 MG TAB PO SCH (08:48)
[2022-09-28] MEDS: ISOSORBIDE DINITRATE 10 MG TAB PO SCH (08:48)
[2022-09-28] MEDS: FAMOTIDINE 20 MG TAB PO SCH (08:48)
[2022-09-28] MEDS: DULoxetine HCL 60 MG CAPSULE.DR PO SCH (08:48)
[2022-09-28] MEDS: SODIUM FERRIC GLUCONAT-SUCROSE 125 MG in SODIUM CHLORIDE 0.9% 100 ML IVPB SCH (09:05)
[2022-09-28] MEDS ORDERED: LIDOCAINE 2% INJ 20 MG/ML (2 ML VIAL) ONE (09:59)
[2022-09-28] MEDS ORDERED: PROPOFOL 10 MG/ML 20 ML VIAL IV ONE (09:59)
[2022-09-28 10:59] LABS: Basophils # (A) 0.09 X 10*3/uL (0.00-0.10); Basophils % (A) 0.6 %; Eosinophils % (A) 8.1 %; HCT 25.5 % (37.2-46.3); HGB 7.2 g/dL (12.0-15.0); Immature Grans, Automated 0.5 %; Lymphocytes # (A) 0.51 X 10*3/uL (0.90-5.00); Lymphocytes % (A) 3.4 %; MCH 25.7 pg (27.0-32.0); MCHC 28.2 g/dL (32.0-37.0); MCV 91.1 fL (80.0-97.0); Mean Platelet Volume 9.8 fL (9.5-12.2); Monocytes # (A) 1.28 X 10*3/uL (0.20-1.00); Monocytes % (A) 8.6 %; NRBC Per 100 WBC 0 /100 WBCS (0.0-0.0); Neutrophils # (A) 11.65 X 10*3/uL (1.80-7.70); Neutrophils % (A) 78.8 %; Platelet Count 372 X 10*3/uL (140-440); RDW 18.3 % (11.5-14.5); WBC 14.81 X 10*3/uL (4.50-10.00)
[2022-09-28 11:29] LABS: African American GFR (CKD) 17.6 (60.0-200.0); Anion Gap 10.2 mmol/L (10.00-18.00); BUN/Creat Ratio 22.25 Ratio (12.00-20.00); Blood Urea Nitrogen 61.2 mg/dL (9.0-27.0); Calcium 8.5 mg/dL (8.7-10.3); Carbon Dioxide 18.8 mmol/L (20.0-27.5); Non-African American GFR(CKD) 15.2 (60.0-200.0); Potassium 5.7 mmol/L (3.5-5.5)
--- NOTE | 2022-09-28 12:06 | P.PN ---
Subjective Progress Note Date: 09/28/22 Principal diagnosis: Acute on chronic symptomatic blood loss anemia, history of small bowel AVMs, fall Patient seen and examined at bedside. No complaints of abdominal pain. Cont inues to note mid and lower back pain that seems to be exacerbated by being in the hospital bed. Tolerating regular diet, positive bowel movement overnight. She's had a hemodynamically stable and afebrile appearance overnight. Her studies today show a moderate leukocytosis at 14.8 thousand, hemoglobin trended slightly down at 7.2, platelet count 378. Basic metabolic panel shows elevation of creatinine at 2.8. Potassium slightly high at 5.7, CO2 slightly low at 18.8. Glucose 107. EGD from yesterday demonstrated a 5 x 5 cm sliding hiatal hernia without evidence of Brandon's ulcer and multiple scattered diminutive AV malformations of the duodenum but there was 1 larger 3-4 mm lesion with active bleeding addressed with APC. Urinalysis was positive for UTI, culture is pending. Continues with evidence of urinary incontinence. Objective - Vital Signs Vital signs: Vital Signs Temp 97.8 F 09/28/22 07:57 Pulse 67 09/28/22 07:57 Resp 17 09/28/22 07:57 BP 114/66 09/28/22 07:57 Pulse Ox 90 L 09/28/22 07:57 FiO2 Intake & Output 09/27/22 09/28/22 09/28/22 18:59 06:59 18:59 Intake Total 300 120 200 Balance 300 120 200 Intake: IV 200 Intake, IV Titration 100 Amount Sodium Ferric Gluconat- 100 Sucrose 125 mg In Sodium Chloride 0.9% 100 ml @ 100 mls/hr IVPB DAILY [facility] Rx#:[id number] Oral 120 200 Other: Voiding Method Diaper Diaper # Voids 1 2 # Bowel Movements 1 - Constitutional General appearance: Present: average body habitus, cooperative - EENT Eyes: Present: EOMI, PERRLA ENT: Present: NA/AT - Respiratory Respiratory: bilateral: CTA - Cardiovascular Details: Heart sounds distant, regular rate and rhythm without appreciable murmur. - Gastrointestinal Gastrointestinal Comment(s): Abdomen is soft, nontender to palpation, no guarding rebound or distention. Abdominal exam is entirely benign. No discrete epigastric, right upper quadrant, or left upper quadrant tenderness on deep palpation. - Neurologic Neurologic: Present: CNII-XII intact - Psychiatric Psychiatric: Present: A&O x's 3, appropriate affect, intact judgment & insight - Labs CBC & Chem 7: 09/28/22 05:57 09/28/22 05:57 Labs: Abnormal Lab Results - Last 24 Hours (Table) 09/28/22 09/28/22 Range/Units 05:57 05:57 WBC 14.81 H (4.50-10.00) X 10*3/uL RBC 2.80 L (4.10-5.20) X 10*6/uL Hgb 7.2 L (12.0-15.0) g/dL Hct 25.5 L (37.2-46.3) % MCH 25.7 L (27.0-32.0) pg MCHC 28.2 L (32.0-37.0) g/dL RDW 18.3 H (11.5-14.5) % Immature Gran # 0.08 H (0.00-0.04) X 10*3/uL Neutrophils # 11.65 H (1.80-7.70) X 10*3/uL Lymphocytes # 0.51 L (0.90-5.00) X 10*3/uL Monocytes # 1.28 H (0.20-1.00) X 10*3/uL Eosinophils # 1.20 H (0.04-0.35) X 10*3/uL Potassium 5.7 H (3.5-5.5) mmol/L Chloride 113 H (96-109) mmol/L Carbon Dioxide 18.8 L (20.0-27.5) mmol/L BUN 61.2 H (9.0-27.0) mg/dL Creatinine 2.8 H (0.6-1.5) mg/dL Est GFR (CKD-EPI)AfAm 17.6 L (60.0-200.0) Est GFR (CKD-EPI)NonAf 15.2 L (60.0-200.0) BUN/Creatinine Ratio 22.25 H (12.00-20.00) Ratio Calcium 8.5 L (8.7-10.3) mg/dL Microbiology - Last 24 Hours (Table) 09/27/22 00:34 Urine Culture - Preliminary Urine,Voided Assessment and Plan Assessment: 82-year-old lady with history of some 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 Acute on chronic anemia on presentation, symptomatic with respect to fatigue. Appropriate response to 2 units packed red blood cells. Suspicion of urinary tract infection. Recent fall, no evidence of traumatic injury on a previous imaging, no complaints of pain. Not maintained on oral anticoagulants. Elevated creatinine, history of chronic kidney disease. Plan: Continue with regular diet as tolerated, continue to trend CBC. If she shows significant decline tomorrow may need to entertain either repeat EGD or follow- up imaging studies to assess for ongoing or recurrent bleeding. With her renal impairment, tagged RBC scan would be favored over CT angiogram. I recommend that she follow up with GI Specialist post discharge as of bleeding from diffuse AV malformations since tends to be a recurrent problem. Time with Patient: Greater than 30
--- NOTE | 2022-09-28 14:26 | P.PN ---
Subjective Progress Note Date: 09/28/22 Principal diagnosis: anemia At today's visit patient is resting comfortably in bed. She reports feeling well, is c/o of some back pain. No reported episodes of bleeding. S/p EGD, 4 mm AVM in the duodenum noted, was treated with argon plasma coagulation with hemostasis. Patient denies abdominal pain, nausea, vomiting, diarrhea. No other reported complaints at this time Objective - Vital Signs Vital signs: Vital Signs Temp 97.6 F 09/28/22 12:33 Pulse 76 09/28/22 12:33 Resp 17 09/28/22 12:33 BP 127/66 09/28/22 12:33 Pulse Ox 88 L 09/28/22 12:33 FiO2 Intake & Output 09/27/22 09/28/22 09/28/22 18:59 06:59 18:59 Intake Total 300 120 200 Balance 300 120 200 Intake: IV 200 Intake, IV Titration 100 Amount Sodium Ferric Gluconat- 100 Sucrose 125 mg In Sodium Chloride 0.9% 100 ml @ 100 mls/hr IVPB DAILY [facility] Rx#:[id number] Oral 120 200 Other: Voiding Method Diaper Diaper # Voids 1 2 # Bowel Movements 1 - Constitutional General appearance: Present: average body habitus, no acute distress - EENT Eyes: Present: anicteric sclerae ENT: Present: hard of hearing - Respiratory Details: Breathing even and unlabored - Cardiovascular Details: Skin warm and dry - Integumentary Integumentary: Present: pale - Neurologic Neurologic Comment(s): Grossly intact - Musculoskeletal Musculoskeletal: Present: strength equal bilaterally - Psychiatric Psychiatric: Present: A&O x's 3, appropriate affect, intact judgment & insight - Labs CBC & Chem 7: 09/28/22 05:57 09/28/22 05:57 Labs: Abnormal Lab Results - Last 24 Hours (Table) 09/28/22 09/28/22 Range/Units 05:57 05:57 WBC 14.81 H (4.50-10.00) X 10*3/uL RBC 2.80 L (4.10-5.20) X 10*6/uL Hgb 7.2 L (12.0-15.0) g/dL Hct 25.5 L (37.2-46.3) % MCH 25.7 L (27.0-32.0) pg MCHC 28.2 L (32.0-37.0) g/dL RDW 18.3 H (11.5-14.5) % Immature Gran # 0.08 H (0.00-0.04) X 10*3/uL Neutrophils # 11.65 H (1.80-7.70) X 10*3/uL Lymphocytes # 0.51 L (0.90-5.00) X 10*3/uL Monocytes # 1.28 H (0.20-1.00) X 10*3/uL Eosinophils # 1.20 H (0.04-0.35) X 10*3/uL Potassium 5.7 H (3.5-5.5) mmol/L Chloride 113 H (96-109) mmol/L Carbon Dioxide 18.8 L (20.0-27.5) mmol/L BUN 61.2 H (9.0-27.0) mg/dL Creatinine 2.8 H (0.6-1.5) mg/dL Est GFR (CKD-EPI)AfAm 17.6 L (60.0-200.0) Est GFR (CKD-EPI)NonAf 15.2 L (60.0-200.0) BUN/Creatinine Ratio 22.25 H (12.00-20.00) Ratio Calcium 8.5 L (8.7-10.3) mg/dL Microbiology - Last 24 Hours (Table) 09/27/22 00:34 Urine Culture - Preliminary Urine,Voided Gram Neg Bacilli - Imaging and Cardiology EGD notes reviewed Assessment and Plan (1) Anemia Current Visit: Yes Status: Acute Priority: High Code(s): D64.9 - ANEMIA, UNSPECIFIED SNOMED Code(s): 191575003 Plan: Anemia: -Hx of TK, requiring intermittent transfusions of PRBCs and parenteral iron. -Hemoglobin 5.9 upon admission. S/p 2 units PRBCs. Hemoglobin 7.2 today -Last iron infusion was on 07/19/2022. Iron studies on 08/21/22 showed iron 53, iron saturation 24%, ferritin 114. -GI capsule study 11/2016 revealed active oozing in the duodenum. She has had m ultiple EGDs requiring cauterization of small bowel angioectasia, last in 12/2020. -General surgery consulted. S/p EGD, 4 mm AVM in the duodenum noted, was treated with argon plasma coagulation with hemostasis. -Anemia workup consistent with TK. Parenteral iron ordered -Will continue to monitor counts -Please transfuse for hemoglobin less than 7 or if symptomatic
[2022-09-28] MEDS: traMADol 50 MG TAB PO PRN (19:38)
[2022-09-28] MEDS ORDERED: FUROSEMIDE 10 MG/ML 2 ML VIAL IV ONE (20:00)
[2022-09-28] MEDS: ALPRAZolam 0.5 MG TAB PO SCH (20:52)
--- NOTE | 2022-09-29 03:34 | PN ---
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 The hemoglobin is 7.2 today, WBC elevated. UA was abnormal. PAST MEDICAL HISTORY: Reviewed. REVIEW OF SYSTEMS: A 14-point review is negative except as mentioned earlier. PHYSICAL EXAMINATION: VITAL SIGNS: Pulse is 67, blood pressure n and respirations 17. CHEST: Clear to auscultation. CARDIOVASCULAR: S1, S2. ABDOMEN: Soft. NERVOUS SYSTEM: No focal deficits. LABORATORY DATA: Reviewed. ASSESSMENT: 1. Anemia with acute GI bleed from possibly AV malformation duodenum. 2. Rule out UTI. 3. Gait dysfunction and weakness. 4. GERD. 5. Hypertension. 6. Multiple medical issues. 7. Restless legs syndrome. RECOMMENDATIONS AND DISCUSSION: This 82-year-old woman presented with multiple complex medical issues. At this time, I recommended to continue the current medication. I would recommend 1 more unit of transfusion, empiric antibiotics, follow the cultures. PT/OT evaluation. Consider possible ECF rehab. Prognosis guarded. Further recommendations to follow. MMODL / IJN: [id number] / BALA
[2022-09-29 07:30] VITALS: RESP 18
[2022-09-29] MEDS ORDERED: amLODIPine 10 MG TAB PO SCH (09:00)
[2022-09-29] MEDS ORDERED: LOSARTAN 50 MG TAB PO SCH (09:00)
[2022-09-29] MEDS ORDERED: FUROSEMIDE 20 MG TAB PO SCH (09:00)
[2022-09-29] MEDS: SODIUM FERRIC GLUCONAT-SUCROSE 125 MG in SODIUM CHLORIDE 0.9% 100 ML IVPB SCH (09:18)
[2022-09-29] MEDS: PANTOPRAZOLE 40 MG TABLET PO SCH (09:23)
[2022-09-29] MEDS: CITALOPRAM HYDROBROMIDE 20 MG TAB PO SCH (09:24)
[2022-09-29] MEDS: DULoxetine HCL 60 MG CAPSULE.DR PO SCH (09:25)
[2022-09-29] MEDS: ISOSORBIDE DINITRATE 10 MG TAB PO SCH (09:25)
[2022-09-29] MEDS: traZODone HCL 100 MG TAB PO SCH (09:25)
[2022-09-29] MEDS: FAMOTIDINE 20 MG TAB PO SCH (09:25)
[2022-09-29 09:26] LABS: Anisocytosis Slight; HCT 30.3 % (34.0-46.0); HGB 8.7 gm/dL (11.4-16.0); Hypochromasia Marked; MCH 25.9 pg (25.0-35.0); MCHC 28.6 g/dL (31.0-37.0); MCV 90.7 fL (80.0-100.0); Platelet Count 368 k/uL (150-450); Poikilocytosis Moderate; RBC 3.34 m/uL (3.80-5.40); WBC 11.2 k/uL (3.8-10.6)
[2022-09-29 09:38] LABS: African American GFR (CKD) 20 (>60 ml/min/1.73 sqM); Anion Gap 9 mmol/L; Blood Urea Nitrogen 69 mg/dL (7-17); Calcium 8.7 mg/dL (8.4-10.2); Carbon Dioxide 17 mmol/L (22-30); Chloride 115 mmol/L (98-107); Glucose 119 mg/dL (74-99); Non-African American GFR(CKD) 17 (>60 ml/min/1.73 sqM); Sodium 141 mmol/L (137-145)
[2022-09-29 12:44] VITALS: BP 135/84; PULSE 77; TEMP 97.6
--- NOTE | 2022-09-29 13:55 | P.DS ---
Providers Date of admission: 09/24/22 15:23 Expected date of discharge: 09/29/22 Attending physician: Laureano Orosco MD Consults: 09/24/22 15:21 Consult Physician Stat Consulting Provider: Gem Dubois Consult Reason/Comments: Anemia Do you want consulting provider notified?: Yes 09/25/22 12:12 Consult Physician Routine Consulting Provider: Donell Bernardo Consult Reason/Comments: evaluation for EGD, anemia, hx of GI bleed Do you want consulting provider notified?: Yes Primary care physician: Ezio Bravo [facility] Course: Final diagnosis Acute blood loss anemia secondary to GI bleed. 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 Acute on chronic anemia with history of iron deficiency, CKD and GI bleed. Symptomatic anemia. Status post fall Falls with weakness Gait dysfunction Full code Discharge disposition Patient is being discharged in a stable condition with guarded prognosis to [facility]. Patient will follow-up with Dr. Cordon in the outpatient setting upon discharge. Patient is to continue with oral Ceftin 500 mg twice daily for the next 5 days and outpatient follow-up with hematology as scheduled. Total time taken is greater than 35 minutes. Hospital course This is a 82-year-old female who was recently admitted with increased generalized weakness and falls reporting shortness of breath and being closely monitored. Patient was found to have a hemoglobin of 5.9 requiring transfusions and also evaluated by general surgery underwent EGD showing a sliding hiatal hernia without ulcer with multiple diminutive duodenal AVMs with some oozing which was coagulated and cauterized. Hemoglobin is stable at 8.7 today and also known to have iron deficiency anemia and was given a dose of IV iron. Patient has been cleared by consultations for discharge today. Please refer to other consultation notes for further HPI. Patient with significant weakness evaluated by physical therapy recommending rehab and patient is now agreeable. Insurance authorization was obtained and patient will be going today. Patient did have a urinary tract infection showing Klebsiella pneumonia with sensitivities and was maintained on IV ceftriaxone and we'll transition to oral Ceftin 500 mg twice daily for the next 5 days to complete the course. Recommend repeat CBC and BMP outpatient in next 2-3 days. Currently no reports of chest pain, shortness of breath, or palpitations. Patient is afebrile. No reports of nausea or vomiting and patient is tolerating diet. Patient will be discharged to ECF today. Guarded prognosis Physical exam: Gen: This is a 82-year-old female who is awake, alert and oriented 2 CT extremely hard of hearing, well-developed, well-nourished HEENT: Head is atraumatic, normocephalic. Pupils equal, round. Sclerae is anicteric. NECK: Supple. No JVD. No lymphadenopathy. No thyromegaly. LUNGS: Diminished breath sounds bilaterally with no wheezing or rhonchi noted No intercostal retractions. HEART: S1, S2 are muffled ABDOMEN: Soft. Bowel sounds are present. No masses. No tenderness. EXTREMITIES: No pedal edema. No calf tenderness. NEUROLOGICAL: Patient is awake, alert and oriented x2-3 diffusely weak. Cranial nerves 2 through 12 are grossly intact. Please refer to medication reconciliation sheet for a list of medications. The impression and plan of care has been dictated by Claudia Fallon, Nurse Practitioner as directed. Dr. Pb MD I have performed a history and examination and MDM of this patient, discussed the same with the dictator, and agree with the dictator's assessment and plan as written ,documented as a scribe. Based on total visit time, I have performed more than 50% of the visit. Patient Condition at Discharge: Fair Plan - Discharge Summary New Discharge Prescriptions: New Ferrous Sulfate [Feosol] 325 mg PO DAILY #30 tab cefUROXime axetiL [Ceftin] 500 mg PO BID 5 Days #10 tab traMADol HCl [Ultram] 50 mg PO BID #4 tab Continue amLODIPine [Norvasc] 10 mg PO DAILY Isosorbide Dinitrate 30 mg PO DAILY Pantoprazole [Protonix] 40 mg PO BID rOPINIRole HCL [Requip] 0.5 mg PO HS DULoxetine HCL [Cymbalta] 60 mg PO DAILY Losartan Potassium [Cozaar] 100 mg PO DAILY Furosemide [Lasix] 20 mg PO DAILY ALPRAZolam [Xanax] 0.5 mg PO HS #2 tab Citalopram Hydrobromide [CeleXA] 40 mg PO DAILY traZODone HCL 100 mg PO TID Famotidine [Pepcid] 20 mg PO DAILY Discharge Medication List amLODIPine [Norvasc] 10 mg PO DAILY 09/24/19 [History] Isosorbide Dinitrate 30 mg PO DAILY 04/26/20 [History] Pantoprazole [Protonix] 40 mg PO BID 04/26/20 [History] Citalopram Hydrobromide [CeleXA] 40 mg PO DAILY 11/10/20 [History] DULoxetine HCL [Cymbalta] 60 mg PO DAILY 05/06/22 [History] Famotidine [Pepcid] 20 mg PO DAILY 05/06/22 [History] rOPINIRole HCL [Requip] 0.5 mg PO HS 05/06/22 [History] traZODone HCL 100 mg PO TID 05/06/22 [History] Furosemide [Lasix] 20 mg PO DAILY 09/24/22 [History] Losartan Potassium [Cozaar] 100 mg PO DAILY 09/24/22 [History] ALPRAZolam [Xanax] 0.5 mg PO HS #2 tab 09/29/22 [Rx] Ferrous Sulfate [Feosol] 325 mg PO DAILY #30 tab 09/29/22 [Rx] cefUROXime axetiL [Ceftin] 500 mg PO BID 5 Days #10 tab 09/29/22 [Rx] traMADol HCl [Ultram] 50 mg PO BID #4 tab 09/29/22 [Rx] Follow up Appointment(s)/Referral(s): Ezio Cordon MD [Primary Care Provider] - 1-2 days Gem Dubois MD [STAFF PHYSICIAN] - 10/29/22 10:00 am Activity/Diet/Wound Care/Special Instructions: Patient is going to [facility] Activity as tolerated Recommend continue with antibiotics for the next 5 days to complete the course Continue iron supplementation daily and outpatient follow-up with hematology Patient follow-up with general surgery outpatient Recommend repeat labs of CBC, BMP, magnesium in 2-3 days continue regular diet Discharge Disposition: TRANSFER TO SNF/ECF
--- NOTE | 2022-09-29 15:00 | P.PN ---
Subjective Progress Note Date: 09/29/22 Principal diagnosis: Acute on chronic symptomatic blood loss anemia, history of small bowel AVMs, fall Patient seen and examined at bedside. Resting comfortably, no complaints. No additional bouts of melena per nursing staff. Received 1 unit PRBCs overnight with appropriate response with hemoglobin of 8.7 on morning labs. White blood cell count 11.2. Has had a hemodynamically stable, afebrile appearance overnight. Receiving iron treatments. Urine culture revealed Klebsiella pneumoniae, greater than 100,000 CFU. Arrangements presently being made for discharge to longterm. Objective - Vital Signs Vital signs: Vital Signs Temp 97.6 F 09/29/22 12:35 Pulse 77 09/29/22 12:35 Resp 18 09/29/22 12:35 BP 135/84 09/29/22 12:35 Pulse Ox 91 L 09/29/22 12:35 FiO2 Intake & Output 09/28/22 09/29/22 09/29/22 18:59 06:59 18:59 Intake Total 468 1900 Balance 468 1900 Intake: Intake, IV Titration 150 Amount Sodium Ferric Gluconat- 100 Sucrose 125 mg In Sodium Chloride 0.9% 100 ml @ 100 mls/hr IVPB DAILY [facility] Rx#:[id number] cefTRIAXone 1 gm In 50 Sodium Chloride 0.9% 50 ml @ 100 mls/hr IVPB Q24HR [facility] Rx#:[id number] Oral 318 1280 Blood Product 0 620 Rc As-1 Unit 0 310 [id number] Other: Voiding Method Diaper Diaper Bedside Commode Incontinent Incontinent # Voids 1 3 1 - Constitutional General appearance: Present: average body habitus, cooperative - EENT Eyes: Present: EOMI, PERRLA ENT: Present: NA/AT - Respiratory Respiratory: bilateral: CTA - Cardiovascular Rhythm: regular - Gastrointestinal Gastrointestinal Comment(s): Abdomen soft, nontender to palpation, no guarding rebound or distention. - Neurologic Neurologic: Present: CNII-XII intact - Musculoskeletal Musculoskeletal: Present: strength equal bilaterally - Psychiatric Psychiatric: Present: A&O x's 3, appropriate affect, intact judgment & insight - Labs CBC & Chem 7: 09/29/22 08:16 09/29/22 08:16 Labs: Abnormal Lab Results - Last 24 Hours (Table) 09/28/22 09/29/22 09/29/22 Range/Units 13:00 08:16 08:16 WBC 11.2 H (3.8-10.6) k/uL RBC 3.34 L (3.80-5.40) m/uL Hgb 8.7 L (11.4-16.0) gm/dL Hct 30.3 L (34.0-46.0) % MCHC 28.6 L (31.0-37.0) g/dL RDW 17.0 H (11.5-15.5) % Chloride 115 H (98-107) mmol/L Carbon Dioxide 17 L (22-30) mmol/L BUN 69 H (7-17) mg/dL Creatinine 2.52 H (0.52-1.04) mg/dL Glucose 119 H (74-99) mg/dL Crossmatch See Detail Microbiology - Last 24 Hours (Table) 09/27/22 00:34 Urine Culture - Final Urine,Voided Klebsiella pneumoniae Assessment and Plan Assessment: 82-year-old lady with history of some 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 Acute on chronic anemia on presentation, symptomatic with respect to fatigue. Appropriate response to 3 units packed red blood cells. Status post EGD demonstrating 5 x 5 cm sliding hiatal hernia, multiple diminutive AV malformations of duodenum and APC cautery of 3-4 mm actively bleeding AV malformation of second portion of the duodenum. Urinary tract infection with Klebsiella pneumoniae and culture. Recent fall, no evidence of traumatic injury on a previous imaging, no complaints of pain. Not maintained on oral anticoagulants. Elevated creatinine, history of chronic kidney disease. Plan: Agree with discharge to longterm, stable for discharge from a surgical standpoint. We'll need to follow-up with either my office or GI Specialist post discharge. Time with Patient: Greater than 30
[2022-09-29 15:34] LABS: Eosinophils # (M) 1.23 k/uL (0-0.7); Lymphocytes # (M) 0.56 k/uL (1.0-4.8); Monocytes # (M) 0.45 k/uL (0-1.0); Neutrophils # (M) 8.96 k/uL (1.3-7.7); Neutrophils % (M) 80 %; Nucleated Red Blood Cells 0 /100 WBC (0-0); Total Cells Counted 100
== END 2022-09-29 17:26 | DRG 378 ==
LOC: EC 12:59 → 5NMEDONC 15:23
PROVIDERS: ADMIT Internal Medicine; ATTEND Internal Medicine
PROC: 30233N1 Transfusion of Nonautologous Red Blood Cells into Peripheral Vein, Percutaneous Approach (ICD-10-PCS; principal; 2022-09-25)
PROC: 0W3P8ZZ Control Bleeding in Gastrointestinal Tract, Via Natural or Artificial Opening Endoscopic (ICD-10-PCS; 2022-09-27)
DX: K31.811 Angiodysplasia of stomach and duodenum with bleeding (principal); D62 Acute posthemorrhagic anemia; Q60.0 Renal agenesis, unilateral; N18.4 Chronic kidney disease, stage 4 (severe); N39.0 Urinary tract infection, site not specified; Z16.11 Resistance to penicillins; I13.10 Hypertensive heart and chronic kidney disease without heart failure, with stage 1 through stage 4 chronic kidney disease, or unspecified chronic kidney disease; D50.9 Iron deficiency anemia, unspecified; F32.A Depression, unspecified; G25.81 Restless legs syndrome; Q27.39 Arteriovenous malformation, other site; H91.92 Unspecified hearing loss, left ear; B96.1 Klebsiella pneumoniae [K. pneumoniae] as the cause of diseases classified elsewhere; K21.9 Gastro-esophageal reflux disease without esophagitis; E87.70 Fluid overload, unspecified; M51.37 Other intervertebral disc degeneration, lumbosacral region; K46.9 Unspecified abdominal hernia without obstruction or gangrene; W18.30XA Fall on same level, unspecified, initial encounter; K44.9 Diaphragmatic hernia without obstruction or gangrene; R26.89 Other abnormalities of gait and mobility; Y92.481 Parking lot as the place of occurrence of the external cause; Y92.59 Other trade areas as the place of occurrence of the external cause; I25.2 Old myocardial infarction; Z87.891 Personal history of nicotine dependence; Z79.899 Other long term (current) drug therapy
CPT/HCPCS: 36415; 43255; 71045; 72110; 73521; 80048; 80053; 81001; 82525; 82607; 82728; 82746; 83540; 83550; 83921; 85025; 86850; 86870; 86880; 86900; 86901; 86902; 86920; 87077; 87086; 87186; 87635; 93005; 99285